=== PATIENT | female | born 1990 | race American Indian/Alaskan Native ===

== ENCOUNTER 2021-01-22 00:53 | Inpatient (IN) | payer OTHER ==
[2021-01-22 05:06] LABS: Hematocrit 40.1 % (30.3-42.9); Hemoglobin 13.9 gm/dl (10.1-14.3); Mean Corpuscular HGB Conc 35 % (30-34); Mean Corpuscular Volume 92 fl (79-97); Platelet Count 289 K/mm3 (140-440); Red Blood Count 4.36 M/mm3 (3.65-5.03); Red Cell Distribution Width 12.3 % (13.2-15.2)
[2021-01-22 06:25] LABS: Alanine Aminotransferase 8 units/L (7-56); Albumin 3.5 g/dL (3.9-5); Blood Urea Nitrogen 9 mg/dL (7-17); Calcium 9.6 mg/dL (8.4-10.2); Hemolysis Index 0
[2021-01-22 06:29] LABS: BUN/Creatinine Ratio 18
[2021-01-22 07:00] LABS: Total Cells Counted 100
[2021-01-22 07:01] LABS: Band Neutrophils # (Manual) 1.5 K/mm3; Platelet Estimate Consistent w Auto; RBC Morphology Normal
[2021-01-22 07:39] LABS: Bilirubin,Urine NEG (Negative); Blood,Urine NEG (Negative); Color,Urine Yellow (Yellow); Mucus,Urine FEW /HPF
[2021-01-22] MEDS ORDERED: VANCOMYCIN/NS 1 GM/250 ML 1 GM/250 ML BAG IV ONE (10:06)
[2021-01-22] MEDS ORDERED: SODIUM CHLORIDE 0.9% 1000 ML 1,000 ML IV ONE (10:08)
[2021-01-22] MEDS ORDERED: ONDANSETRON 4 MG/2 ML INJ IV ONE (10:08)
[2021-01-22] MEDS ORDERED: MORPHINE 4 MG/1 ML INJ IV ONE (10:08)
--- NOTE | 2021-01-22 10:12 | Emergency Department Report ---
ED General Adult HPI - General Chief complaint: Hyperglycemia Stated complaint: ABSCESS ON BUTTOCKS;HIGH BLOOD SUGAR Time Seen by Provider: 01/22/21 09:57 Source: patient Mode of arrival: Ambulatory Limitations: No Limitations - History of Present Illness Initial comments: Patient is 30 years old female with history of type 1 diabetes. Patient presented to the ER complaining of generalized weakness for the last few days. Patient stated that she noticed swelling and tenderness in her right buttock for the last 3 days. Patient also reported fever and chills. Patient denied any nausea or vomiting. No chest pain or shortness of breath or abdominal pain. Patient found to be in DKA with anion gap of 21. DKA protocol immediately initiated. Severity scale (0 -10): 6 - Related Data Allergies Allergy/AdvReac Type Severity Reaction Status Date / Time No Known Allergies Allergy Unverified 01/22/21 04:28 ED Review of Systems ROS: Stated complaint: ABSCESS ON BUTTOCKS;HIGH BLOOD SUGAR Other details as noted in HPI Comment: All other systems reviewed and negative Constitutional: chills, fever Respiratory: denies: cough, shortness of breath, SOB with exertion, SOB at rest Cardiovascular: palpitations. denies: chest pain Gastrointestinal: denies: abdominal pain, nausea, vomiting, diarrhea Musculoskeletal: denies: back pain Skin: lesions, change in color Neurological: weakness. denies: numbness, paresthesias, confusion ED Past Medical Hx - Past Medical History Previous Medical History?: Yes Hx Diabetes: Yes - Surgical History Past Surgical History?: Yes Additional Surgical History: - Social History Smoking Status: Never Smoker Substance Use Type: None ED Physical Exam - General Limitations: No Limitations General appearance: alert, in no apparent distress - Head Head exam: Present: atraumatic, normocephalic, normal inspection - ENT ENT exam: Present: mucous membranes dry - Neck Neck exam: Present: normal inspection, full ROM. Absent: tenderness, meningismus - Respiratory Respiratory exam: Present: normal lung sounds bilaterally - Cardiovascular Cardiovascular Exam: Present: tachycardia (Continue see the patient) - GI/Abdominal GI/Abdominal exam: Present: soft ( with a breathing), normal bowel sounds. Absent: distended, tenderness, guarding, rebound, rigid, mass, bruit, pulsatile mass (Patient), hernia - Extremities Exam Extremities exam: Present: normal inspection, full ROM, normal capillary refill. Absent: calf tenderness - Neurological Exam Neurological exam: Present: alert, oriented X3, CN II-XII intact - Psychiatric Psychiatric exam: Present: normal mood - Skin Skin exam: Present: warm, other (3 x 4 cm area of tenderness, swelling and warmth at the right buttock. Nonfluctuant.) ED Course Vital Signs 01/22/21 01/22/21 01/22/21 04:14 10:04 10:05 Temperature 99.2 F 98.5 F Pulse Rate 119 H 131 H 120 H Respiratory 18 18 20 Rate Blood Pressure 143/76 Blood Pressure 191/94 [Right] O2 Sat by Pulse 100 97 100 Oximetry 01/22/21 01/22/21 01/22/21 10:16 10:30 10:46 Temperature Pulse Rate 122 H 120 H 125 H Respiratory 19 20 20 Rate Blood Pressure 191/94 191/94 Blood Pressure [Right] O2 Sat by Pulse 100 100 100 Oximetry 01/22/21 01/22/21 01/22/21 11:00 11:16 11:46 Temperature Pulse Rate 123 H 125 H 120 H Respiratory 16 25 H 15 Rate Blood Pressure 191/94 141/89 146/91 Blood Pressure [Right] O2 Sat by Pulse 100 100 100 Oximetry 01/22/21 12:00 Temperature Pulse Rate 122 H Respiratory 25 H Rate Blood Pressure 150/95 Blood Pressure [Right] O2 Sat by Pulse 100 Oximetry ED Medical Decision Making - Lab Data Result diagrams: 01/22/21 04:39 01/22/21 10:19 - Radiology Data Radiology results: report reviewed - Medical Decision Making Patient is 30 years old female with history of type 1 diabetes. Patient presented to the ER complaining of generalized weakness for the last few days. Patient stated that she noticed swelling and tenderness in her right buttock for the last 3 days. Patient also reported fever and chills. Patient denied any nausea or vomiting. No chest pain or shortness of breath or abdominal pain. Patient found to be in DKA with anion gap of 21. DKA protocol immediately initiated. Patient started on normal saline and insulin drip. Right buttock area showed cellulitis no evidence of abscess at this moment. Patient started on vanc omycin. I discussed the patient with Dr. Garcia, he agreed to admit the patient to medical service for further management. Critical Care Time: Yes Critical care time in (mins) excluding proc time.: 30 Critical care attestation.: If time is entered above; I have spent that time in minutes in the direct care of this critically ill patient, excluding procedure time. ED Disposition Clinical Impression: DKA (diabetic ketoacidoses), Cellulitis of right buttock, Leukocytosis Disposition: OP ADMIT IP TO THIS HOSP Is pt being admited?: Yes Condition: Stable Instructions: Diabetic Ketoacidosis (ED) Referrals: PRIMARY CARE, [Primary Care Provider] - 3-5 Days
[2021-01-22 10:48] LABS: Blood Urea Nitrogen 9 mg/dL (7-17); Calcium 8.8 mg/dL (8.4-10.2); Hemolysis Index 4
[2021-01-22 10:51] LABS: BUN/Creatinine Ratio 18
--- NOTE | 2021-01-22 11:07 | XRay Report ---
CHEST 1 VIEW 01/22/2021 9:58 AM INDICATION / CLINICAL INFORMATION: fever. COMPARISON: None available. FINDINGS: SUPPORT DEVICES: None. HEART / MEDIASTINUM: No significant abnormality. LUNGS / PLEURA: No significant pulmonary or pleural abnormality. No pneumothorax. ADDITIONAL FINDINGS: No significant additional findings. IMPRESSION: 1. No acute findings. Signer Name: Bryan Dillon MD Signed: 01/22/2021 11:03 AM Workstation Name: [id number]
[2021-01-22] MEDS: INSULIN REGULAR, HUMAN 100 UNITS in SODIUM CHLORIDE 0.9% 99 ML IV SCH (12:28)
[2021-01-22] MEDS ORDERED: SODIUM CHLORIDE 0.9% 1000 ML 1,000 ML IV SCH (12:30)
--- NOTE | 2021-01-22 12:58 | History and Physical Report ---
History of Present Illness Chief complaint: My blood sugar is high and my butt is sore History of present illness: 30 YO Female with DM, Obesity presents to ED for evaluation. Pt reports " my blood sugar is high, and my butt is sore". Patient states that she has experienced redness, swelling, tenderness in her right buttock over the last 3 days with persistently worsening symptoms over the same timeframe. Patient also acknowledges high blood glucose levels. Patient transported to [facility] via private vehicle for further care and evaluation of the aforementioned symptoms. The patient was seen and evaluated in the emergency department. All lab and imaging studies reviewed. The patient was found to have diabetic ketoacidosis complicated by metabolic acidosis, right buttock cellulitis complicated by sepsis. Patient admitted to ICU and initiated on DKA as well as sepsis protocols respectively. Patient treated with IV fluid resuscitation therapy as well. Patient denies fever, chills, chest pain, palpitation, productive cough, recent ill contacts, or known exposure to COVID-19. No prior admission for rev iew. No medication listed at time of admission for reconciliation. Critical care consult placed in ED. Past History Past Medical History: diabetes, other (See HPI) Past Surgical History: Social history: single. denies: smoking, alcohol abuse, prescription drug abuse Family history: diabetes, hypertension Medications and Allergies Allergies Allergy/AdvReac Type Severity Reaction Status Date / Time No Known Allergies Allergy Unverified 01/22/21 04:28 Active Meds: Active Medications Insulin Human Regular 100 (units/ Sodium Chloride) 100 mls @ 1 mls/hr IV TITR LESTER; Protocol Last Admin: 01/22/21 12:28 Dose: 5 units/hr, 5 mls/hr Documented by: Sodium Chloride (Nacl 0.9% 1000 Ml) 1,000 mls @ 125 mls/hr IV DIRECT LESTER Review of Systems Constitutional: no weight loss, no weight gain, no fever, no chills Ears, nose, mouth and throat: no ear pain, no ear discharge, no decreased hearing, no nasal congestion, no nasal discharge, no sinus pain Breasts: no change in shape, no swelling, no mass Cardiovascular: no chest pain, no palpitations, no rapid/irregular heart beat, no edema, no lightheadedness Respiratory: no cough, no cough with sputum, no excessive sputum, no shortness of breath Gastrointestinal: no abdominal pain, no vomiting, no constipation, no change in bowel habits, no hematemesis Genitourinary Female: no pelvic pain, no flank pain, no dysuria, no urinary frequency, no urgency Rectal: no pain, no incontinence, no bleeding Musculoskeletal: no neck pain, no arm numbness/tingling, no shooting leg pain, no leg numbness/tingling, no redness of joints Integumentary: redness, boils, other (Right buttock) Neurological: no head injury, no weakness, no numbness, no tingling, no seizures, no syncope Psychiatric: no anxiety, no memory loss, no sleep disturbances, no insomnia, no change in appetite, no change in libido Endocrine: excessive thirst, polydipsia, polyuria, no cold intolerance, no polyphagia, no nocturia, no excessive sweating, no weight change Hematologic/Lymphatic: no easy bruising, no easy bleeding, no lymphedema Allergic/Immunologic: no urticaria, no allergic rhinitis, no wheezing, no persistent infections, no anaphylaxis Exam - Constitutional Vitals: Temp Pulse Resp BP Pulse Ox 98.5 F 122 H 25 H 150/95 100 01/22/21 10:05 01/22/21 12:00 01/22/21 12:00 01/22/21 12:00 01/22/21 12:00 General appearance: Present: mild distress, obese - EENT Eyes: Present: PERRL ENT: hearing intact, clear oral mucosa - Neck Neck: Present: supple, normal ROM - Respiratory Respiratory effort: normal Respiratory: bilateral: CTA - Cardiovascular Heart Sounds: Present: S1 & S2. Absent: rub, click - Extremities Extremities: pulses symmetrical, No edema Peripheral Pulses: abnormal (Capillary refill greater than 3.5 seconds) - Abdominal General gastrointestinal: Present: soft, non-tender, non-distended, normal bowel sounds Female genitourinary: Present: normal - Integumentary Integumentary: Present: erythema (Right buttock: No crepitus, no fluctuance, no purulent discharge.) - Musculoskeletal Musculoskeletal: gait normal, strength equal bilaterally - Psychiatric Psychiatric: appropriate mood/affect, intact judgment & insight - Neurologic Neurologic: CNII-XII intact, moves all extremities Results - Labs CBC & Chem 7: 01/22/21 04:39 01/22/21 14:17 Labs: Abnormal lab results 01/22/21 01/22/21 01/22/21 Range/Units 04:23 04:39 04:39 WBC 18.7 H (4.5-11.0) K/mm3 MCHC 35 H (30-34) % RDW 12.3 L (13.2-15.2) % Seg Neuts % (Manual) 89.0 H (40.0-70.0) % Lymphocytes % (Manual) 2.0 L (13.4-35.0) % Seg Neutrophils # Man 16.6 H (1.8-7.7) K/mm3 Lymphocytes # (Manual) 0.4 L (1.2-5.4) K/mm3 VBG pH (7.320-7.420) Sodium 129 L (137-145) mmol/L Potassium 3.4 L (3.6-5.0) mmol/L Chloride 94.0 L (98-107) mmol/L Carbon Dioxide 17 L (22-30) mmol/L Creatinine 0.5 L (0.6-1.2) mg/dL Glucose 328 H (65-100) mg/dL POC Glucose 324 H (70-105) mg/dL Alkaline Phosphatase 131 H (35-129) units/L Albumin 3.5 L (3.9-5) g/dL 01/22/21 01/22/21 01/22/21 Range/Units 04:39 10:19 11:57 WBC (4.5-11.0) K/mm3 MCHC (30-34) % RDW (13.2-15.2) % Seg Neuts % (Manual) (40.0-70.0) % Lymphocytes % (Manual) (13.4-35.0) % Seg Neutrophils # Man (1.8-7.7) K/mm3 Lymphocytes # (Manual) (1.2-5.4) K/mm3 VBG pH 7.303 L (7.320-7.420) Sodium 127 L (137-145) mmol/L Potassium 3.4 L (3.6-5.0) mmol/L Chloride 90.9 L (98-107) mmol/L Carbon Dioxide 13 L (22-30) mmol/L Creatinine 0.5 L (0.6-1.2) mg/dL Glucose 306 H (65-100) mg/dL POC Glucose 283 H (70-105) mg/dL Alkaline Phosphatase (35-129) units/L Albumin (3.9-5) g/dL Assessment and Plan - Patient Problems (1) Sepsis Current Visit: Yes Status: Acute Plan to address problem: Sepsis protocol: CBC, CMP, IV antibiotic therapy, IV fluid resuscitation therapy, serial lactic acid level, blood culture, maintain mean arterial pressure greater than or equal to 65. The high probability of a clinically significant, sudden or life threatening deterioration of the [endocrine, neuro, integument] system(s) required my full and direct attention, intervention and personal management. The aggregate critical care time was [65] minutes. This time is in addition to time spent performing reported procedures but includes the following: [x] Data Review and interpretation [x] Patient assessment and monitoring of vital signs [x] Documentation [x] Medication orders and management (2) DKA (diabetic ketoacidoses) Current Visit: Yes Status: Acute Qualifiers: Diabetes mellitus type: type 1 Plan to address problem: DKA protocol: Insulin drip, IV fluid resuscitation therapy, serial BMP, monitor potassium level, replete potassium levels in accordance with potassium protocol, monitor anion gap (3) Metabolic acidosis Current Visit: Yes Status: Acute Plan to address problem: IV fluid resuscitation therapy, BMP, serial lactic acid level, (4) Obesity (BMI 30.0-34.9) Current Visit: Yes Status: Acute Plan to address problem: Balanced diet, increase physical activity at discharge (5) Cellulitis of right buttock Current Visit: Yes Status: Acute Plan to address problem: CBC, BMP, IV antibiotic therapy, supportive care. CT scan pelvis to evaluate for necrotizing soft tissue infection (6) DVT prophylaxis Current Visit: Yes Status: Acute Plan to address problem: SCD to bilateral lower extremities while in bed
[2021-01-22] MEDS ORDERED: ALBUTEROL 2.5 MG/3 ML NEBU IH PRN (13:04)
[2021-01-22 14:57] LABS: Blood Urea Nitrogen 8 mg/dL (7-17); Calcium 8.6 mg/dL (8.4-10.2); Hemolysis Index 0
[2021-01-22 15:04] LABS: BUN/Creatinine Ratio 16
[2021-01-22] MEDS ORDERED: DEXTROSE 50% IN WATER (25GM) 50 ML SYRINGE IV PRN (16:13)
[2021-01-22] MEDS ORDERED: SODIUM CHLORIDE 0.9% 1000 ML IV SOLN IV ONE (16:45)
[2021-01-22] MEDS: D5W/0.45% NACL/KCL 20 MEQ 20 MEQ/1,000 ML BAG IV SCH ×2 (16:59→23:56)
[2021-01-22] MEDS ORDERED: SODIUM BICARB 8.4% 50 MEQ/50 ML SYRINGE IV ONE (17:00)
[2021-01-22] MEDS: CLINDAMYCIN 600 MG/50 mL 600 MG/50 ML BAG IV SCH (17:17)
[2021-01-22 19:03] LABS: Blood Urea Nitrogen 7 mg/dL (7-17); Calcium 8.3 mg/dL (8.4-10.2); Hemolysis Index 2
[2021-01-22 19:10] LABS: BUN/Creatinine Ratio 18
[2021-01-22] MEDS: ACETAMINOPHEN 325 MG TAB PO PRN (19:33)
[2021-01-22 23:01] LABS: Blood Urea Nitrogen 7 mg/dL (7-17); Calcium 8.1 mg/dL (8.4-10.2); Hemolysis Index 5
[2021-01-22 23:03] LABS: BUN/Creatinine Ratio 18
[2021-01-22] MEDS: POTASSIUM CHLORIDE 10 MEQ 10 MEQ/100 ML BAG IV SCH (23:17)
[2021-01-23] MEDS: POTASSIUM CHLORIDE 10 MEQ 10 MEQ/100 ML BAG IV SCH ×3 (00:22→02:27)
[2021-01-23] MEDS: CLINDAMYCIN 600 MG/50 mL 600 MG/50 ML BAG IV SCH ×3 (01:10→18:17)
[2021-01-23] MEDS: INSULIN REGULAR, HUMAN 100 UNITS in SODIUM CHLORIDE 0.9% 99 ML IV SCH (02:55)
[2021-01-23] MEDS: HYDROmorphone 1 MG/1 ML INJ IV PRN ×5 (04:16→22:35)
[2021-01-23 04:47] LABS: Hematocrit 35.3 % (30.3-42.9); Hemoglobin 12.4 gm/dl (10.1-14.3); Mean Corpuscular HGB Conc 35 % (30-34); Mean Corpuscular Volume 90 fl (79-97); Platelet Count 271 K/mm3 (140-440); Red Blood Count 3.92 M/mm3 (3.65-5.03); Red Cell Distribution Width 12.1 % (13.2-15.2)
[2021-01-23 05:08] LABS: Blood Urea Nitrogen 6 mg/dL (7-17); Calcium 8.4 mg/dL (8.4-10.2); Hemolysis Index 4
[2021-01-23 05:09] LABS: BUN/Creatinine Ratio 15
[2021-01-23 05:47] LABS: Anisocytosis 1+; Eosinophils % (Manual) 0.5 % (0.0-4.3); Platelet Estimate Consistent w Auto; Total Cells Counted 200
[2021-01-23] MEDS ORDERED: DEXTROSE 50% IN WATER (25GM) 50 ML SYRINGE IV PRN (08:27)
[2021-01-23] MEDS ORDERED: POTASSIUM PHOSPHATE 30 MMOL in SODIUM CHLORIDE 0.9% 500 ML 500 ML IV ONE (08:30)
[2021-01-23] MEDS ORDERED: INSULIN REGULAR, HUMAN 100 UNITS/1 ML SUB-Q ONE (09:00)
[2021-01-23] MEDS ORDERED: MAGNESIUM SULFATE 2 GM/50 ML BAG IV ONE (09:00)
[2021-01-23 09:23] LABS: Blood Urea Nitrogen 6 mg/dL (7-17); Calcium 7.9 mg/dL (8.4-10.2); Hemolysis Index 102
--- NOTE | 2021-01-23 09:23 | Progress Note ---
Assessment and Plan Assessment and plan: 30 YO Female with DM, Obesity presents to ED for evaluation. Pt reports " my blood sugar is high, and my butt is sore". Patient states that she has experienced redness, swelling, tenderness in her right buttock over the last 3 days with persistently worsening symptoms over the same timeframe. Patient also acknowledges high blood glucose levels. Patient transported to [facility] via private vehicle for further care and evaluation of the aforementioned symptoms. The patient was seen and evaluated in the emergency department. All lab and imaging studies reviewed. The patient was found to have diabetic ketoacidosis complicated by metabolic acidosis, right buttock cellulitis complicated by sepsis. Patient admitted to ICU and initiated on DKA as well as sepsis protocols respectively. Patient treated with IV fluid resuscitation therapy as well. Patient denies fever, chills, chest pain, palpitation, productive cough, recent ill contacts, or known exposure to COVID-19. No prior admission for review. No medication listed at time of admission for reconciliation. Critical care consult placed in ED. 01/23: Patient seen and examined, no fever, no new complaints, wound dressing in place,. Anion Gap closed. She states she uses 70 lantus at night along with sliding scale with meals, Will transition to sq insulin and start lantus at 50. Will re-evaluate wound, Awaiting CT pelvis ordered yesterday urgently- I Understand will be done today. this will help evaluate for abscess that may require I/D Wound care consult Continue abx. Hypokalemiareplace Anticipate discharge in a.m. if remains stable and does not require any debridement (1) Sepsis Current Visit: Yes Status: Acute Plan to address problem: Sepsis protocol: CBC, CMP, IV antibiotic therapy, IV fluid resuscitation therapy, serial lactic acid level, blood culture, maintain mean arterial pressure greater than or equal to 65. (2) DKA (diabetic ketoacidoses) Current Visit: Yes Status: Acute Qualifiers: Diabetes mellitus type: type 1 Plan to address problem: DKA protocol: Insulin drip, IV fluid resuscitation therapy, serial BMP, monitor potassium level, replete potassium levels in accordance with potassium protocol, monitor anion gap (3) Metabolic acidosis Current Visit: Yes Status: Acute Plan to address problem: IV fluid resuscitation therapy, BMP, serial lactic acid level, (4) Obesity (BMI 30.0-34.9) Current Visit: Yes Status: Acute Plan to address problem: Balanced diet, increase physical activity at discharge (5) Cellulitis of right buttock Current Visit: Yes Status: Acute Plan to address problem: CBC, BMP, IV antibiotic therapy, supportive care. CT scan pelvis to evaluate for necrotizing soft tissue infection (6) DVT prophylaxis Current Visit: Yes Status: Acute Plan to address problem: SCD to bilateral lower extremities while in bed History Interval history: Patient seen and examined, reports compliant with her insulin therapy, she thinks she sustained an insect bite. Hospitalist Physical - Physical exam Narrative exam: General appearance: Present: No distress, obese - EENT Eyes: Present: PERRL ENT: hearing intact, clear oral mucosa - Neck Neck: Present: supple, normal ROM - Respiratory Respiratory effort: normal Respiratory: bilateral: CTA - Cardiovascular Heart Sounds: Present: S1 & S2. Absent: rub, click - Extremities Extremities: pulses symmetrical, No edema Peripheral Pulses: abnormal (Capillary refill greater than 3.5 seconds) - Abdominal General gastrointestinal: Present: soft, non-tender, non-distended, normal bowel sounds Female genitourinary: Present: normal - Integumentary Integumentary: Present: erythema dressing (Right buttock: No crepitus, no fluctuance, no purulent discharge.) - Musculoskeletal Musculoskeletal: gait normal, strength equal bilaterally - Psychiatric Psychiatric: appropriate mood/affect, intact judgment & insight - Neurologic Neurologic: CNII-XII intact, moves all extremities - Constitutional Vitals: Temp Pulse Resp BP Pulse Ox 98.7 F 106 H 22 118/78 99 01/23/21 07:00 01/23/21 08:00 01/23/21 08:00 01/23/21 08:00 01/23/21 08:00 General appearance: Present: mild distress, obese Results - Labs CBC & Chem 7: 01/23/21 04:17 01/23/21 08:24 Labs: Laboratory Last Values WBC 20.7 K/mm3 (4.5-11.0) H 01/23/21 04:17 RBC 3.92 M/mm3 (3.65-5.03) 01/23/21 04:17 Hgb 12.4 gm/dl (10.1-14.3) 01/23/21 04:17 Hct 35.3 % (30.3-42.9) 01/23/21 04:17 MCV 90 fl (79-97) 01/23/21 04:17 MCH 32 pg (28-32) 01/23/21 04:17 MCHC 35 % (30-34) H 01/23/21 04:17 RDW 12.1 % (13.2-15.2) L 01/23/21 04:17 Plt Count 271 K/mm3 (140-440) 01/23/21 04:17 Add Manual Diff Complete 01/23/21 04:17 Total Counted 200 01/23/21 04:17 Seg Neuts % (Manual) 88.5 % (40.0-70.0) H 01/23/21 04:17 Band Neutrophils % 5.0 % 01/23/21 04:17 Lymphocytes % (Manual) 1.0 % (13.4-35.0) L 01/23/21 04:17 Monocytes % (Manual) 5.0 % (0.0-7.3) 01/23/21 04:17 Eosinophils % (Manual) 0.5 % (0.0-4.3) 01/23/21 04:17 Nucleated RBC % Not Reportable 01/23/21 04:17 Seg Neutrophils # Man 18.3 K/mm3 (1.8-7.7) H 01/23/21 04:17 Band Neutrophils # 1.0 K/mm3 01/23/21 04:17 Lymphocytes # (Manual) 0.2 K/mm3 (1.2-5.4) L 01/23/21 04:17 Abs React Lymphs (Man) 0.0 K/mm3 01/23/21 04:17 Monocytes # (Manual) 1.0 K/mm3 (0.0-0.8) H 01/23/21 04:17 Eosinophils # (Manual) 0.1 K/mm3 (0.0-0.4) 01/23/21 04:17 Basophils # (Manual) 0.0 K/mm3 (0.0-0.1) 01/23/21 04:17 Metamyelocytes # 0.0 K/mm3 01/23/21 04:17 Myelocytes # 0.0 K/mm3 01/23/21 04:17 Promyelocytes # 0.0 K/mm3 01/23/21 04:17 Blast Cells # 0.0 K/mm3 01/23/21 04:17 WBC Morphology Not Reportable 01/23/21 04:17 Hypersegmented Neuts Not Reportable 01/23/21 04:17 Hyposegmented Neuts Not Reportable 01/23/21 04:17 Hypogranular Neuts Not Reportable 01/23/21 04:17 Smudge Cells Not Reportable 01/23/21 04:17 Toxic Granulation Not Reportable 01/23/21 04:17 Toxic Vacuolation Not Reportable 01/23/21 04:17 Dohle Bodies Not Reportable 01/23/21 04:17 Pelger-Huet Anomaly Not Reportable 01/23/21 04:17 Ozzy Rods Not Reportable 01/23/21 04:17 Platelet Estimate Consistent w auto 01/23/21 04:17 Clumped Platelets Not Reportable 01/23/21 04:17 Plt Clumps, EDTA Not Reportable 01/23/21 04:17 Large Platelets Not Reportable 01/23/21 04:17 Giant Platelets Not Reportable 01/23/21 04:17 Platelet Satelliting Not Reportable 01/23/21 04:17 Plt Morphology Comment Not Reportable 01/23/21 04:17 RBC Morphology Not Reportable 01/23/21 04:17 Dimorphic RBCs Not Reportable 01/23/21 04:17 Polychromasia Not Reportable 01/23/21 04:17 Hypochromasia Not Reportable 01/23/21 04:17 Poikilocytosis Not Reportable 01/23/21 04:17 Anisocytosis 1+ 01/23/21 04:17 Microcytosis Not Reportable 01/23/21 04:17 Macrocytosis Not Reportable 01/23/21 04:17 Spherocytes Not Reportable 01/23/21 04:17 Pappenheimer Bodies Not Reportable 01/23/21 04:17 Sickle Cells Not Reportable 01/23/21 04:17 Target Cells Not Reportable 01/23/21 04:17 Tear Drop Cells Not Reportable 01/23/21 04:17 Ovalocytes Not Reportable 01/23/21 04:17 Helmet Cells Not Reportable 01/23/21 04:17 [place] Bodies Not Reportable 01/23/21 04:17 [place] Rings Not Reportable 01/23/21 04:17 Su Cells Not Reportable 01/23/21 04:17 Bite Cells Not Reportable 01/23/21 04:17 Crenated Cell Not Reportable 01/23/21 04:17 Elliptocytes Not Reportable 01/23/21 04:17 Acanthocytes (Spur) Not Reportable 01/23/21 04:17 Rouleaux Not Reportable 01/23/21 04:17 Hemoglobin C Crystals Not Reportable 01/23/21 04:17 Schistocytes Not Reportable 01/23/21 04:17 Malaria parasites Not Reportable 01/23/21 04:17 Kal Bodies Not Reportable 01/23/21 04:17 Hem Pathologist Commnt No 01/23/21 04:17 VBG pH 7.303 (7.320-7.420) L 01/22/21 04:39 Sodium 129 mmol/L (137-145) L 01/23/21 04:17 Potassium 3.3 mmol/L (3.6-5.0) L D 01/23/21 04:17 Chloride 98.7 mmol/L (98-107) 01/23/21 04:17 Carbon Dioxide 19 mmol/L (22-30) L 01/23/21 04:17 Anion Gap 15 mmol/L 01/23/21 04:17 BUN 6 mg/dL (7-17) L 01/23/21 04:17 Creatinine 0.4 mg/dL (0.6-1.2) L 01/23/21 04:17 Estimated GFR > 60 ml/min 01/23/21 04:17 BUN/Creatinine Ratio 15 % 01/23/21 04:17 Glucose 189 mg/dL (65-100) H 01/23/21 04:17 POC Glucose 133 mg/dL (70-105) H 01/23/21 09:18 Lactic Acid 1.10 mmol/L (0.7-2.0) 01/22/21 22:26 Calcium 8.4 mg/dL (8.4-10.2) 01/23/21 04:17 Phosphorus 1.30 mg/dL (2.5-4.5) L D 01/22/21 18:18 Magnesium 1.60 mg/dL (1.7-2.3) L 01/22/21 18:18 Total Bilirubin 0.50 mg/dL (0.1-1.2) 01/22/21 04:39 AST 9 units/L (5-40) 01/22/21 04:39 ALT 8 units/L (7-56) 01/22/21 04:39 Alkaline Phosphatase 131 units/L (35-129) H 01/22/21 04:39 Total Protein 7.3 g/dL (6.3-8.2) 01/22/21 04:39 Albumin 3.5 g/dL (3.9-5) L 01/22/21 04:39 Albumin/Globulin Ratio 0.9 % 01/22/21 04:39 HCG, Qual Negative (Negative) 01/22/21 04:39 Urine Color Yellow (Yellow) 01/22/21 06:08 Urine Turbidity Clear (Clear) 01/22/21 06:08 Urine pH 6.0 (5.0-7.0) 01/22/21 06:08 Ur Specific [place] 1.024 (1.003-1.030) 01/22/21 06:08 Urine Protein 30 mg/dl mg/dL (Negative) 01/22/21 06:08 Urine Glucose (UA) >=500 mg/dL (Negative) 01/22/21 06:08 Urine Ketones 80 mg/dL (Negative) 01/22/21 06:08 Urine Blood Neg (Negative) 01/22/21 06:08 Urine Nitrite Neg (Negative) 01/22/21 06:08 Urine Bilirubin Neg (Negative) 01/22/21 06:08 Urine Urobilinogen 2.0 mg/dL (<2.0) 01/22/21 06:08 Ur Leukocyte Esterase Neg (Negative) 01/22/21 06:08 Urine WBC (Auto) 3.0 /HPF (0.0-6.0) 01/22/21 06:08 Urine RBC (Auto) 2.0 /HPF (0.0-6.0) 01/22/21 06:08 U Epithel Cells (Auto) 2.0 /HPF (0-13.0) 01/22/21 06:08 Urine Mucus Few /HPF 01/22/21 06:08 Microbiology: Microbiology 01/22/21 10:25 Peripheral/Venous Blood Culture - Preliminary Culture in Progress 01/22/21 10:19 Peripheral/Venous Blood Culture - Preliminary Culture in Progress [place]ell/IV: Voiding Method Toilet Active Medications - Current Medications Current Medications: Generic Name Dose Route Start Last Admin Trade Name Freq PRN Reason Stop Dose Admin Acetaminophen 650 mg 01/22/21 16:28 01/22/21 19:33 Acetaminophen 325 Mg Tab PO 650 mg Q6H PRN Administration Pain, Mild (1-3) Albuterol 2.5 mg 01/22/21 13:04 Albuterol 2.5 Mg/3 Ml Nebu IH Q3HRT PRN Shortness Of Breath Dextrose 50 ml 01/23/21 08:27 Dextrose 50% In Water (25gm) 50 Ml Syringe IV Q30MIN PRN Hypoglycemia Protocol Hydromorphone HCl 0.25 mg 01/22/21 16:28 01/23/21 04:16 Hydromorphone 1 Mg/1 Ml Inj IV 0.25 mg Q4H PRN Administration Pain, Moderate (4-6) Sodium Chloride 1,000 mls @ 125 mls/hr 01/22/21 12:30 Nacl 0.9% 1000 Ml IV DIRECT LESTER Potassium Chloride/Dextrose/Sod Cl 20 meq in 1,000 mls @ 125 mls/hr 01/22/21 17:00 01/22/21 23:56 D5w/0.45% Nacl/Kcl 20 Meq IV 01/23/21 10:00 125 mls/hr DIRECT LESTER Administration Clindamycin HCl 600 mg in 50 mls @ 100 mls/hr 01/22/21 17:00 01/23/21 01:10 Cleocin 600 Mg/50 Ml IV 100 mls/hr Q8H LESTER Administration Protocol Magnesium Sulfate 2 gm in 50 mls @ 25 mls/hr 01/23/21 09:00 Magnesium Sulfate 2gm/50ml IV 01/23/21 10:59 ONCE ONE Potassium Phosphate 30 mmol/ 510 mls @ 85 mls/hr 01/23/21 08:30 Sodium Chloride IV 01/23/21 14:29 ONCE ONE Insulin Glargine 50 units 01/23/21 22:00 Insulin Glargine 100 Units/Ml SUB-Q QHS LESTER Insulin Human Lispro 0 unit 01/23/21 11:30 Insulin Lispro 100 Unit/Ml SUB-Q ACHS LESTER Protocol Sodium Chloride 10 ml 01/22/21 22:00 01/22/21 21:17 Sodium Chloride 0.9% 10 Ml Flush Syringe IV 10 ml BID LESTER Administration Sodium Chloride 10 ml 01/22/21 13:04 Sodium Chloride 0.9% 10 Ml Flush Syringe IV PRN PRN LINE FLUSH
[2021-01-23 09:26] LABS: BUN/Creatinine Ratio 15
[2021-01-23] MEDS: D5W/0.45% NACL/KCL 20 MEQ 20 MEQ/1,000 ML BAG IV SCH (09:44)
[2021-01-23] MEDS ORDERED: POTASSIUM CHLORIDE ER 20 MEQ TAB PO ONE (10:00)
--- NOTE | 2021-01-23 10:44 | Consultation ---
History of Present Illness - Reason for Consult Consult date: 01/23/21 sepsis Requesting physician: ADRIENNE SIEGEL - History of Present Illness The patient is a 30-year-old female with diabetes mellitus admitted to the hospital with pain in her right buttock going on since Sunday last week and also running high blood sugars at home. Upon evaluation in the ER, she was noted to be in diabetic ketoacidosis, sepsis. She was also noted to have right buttock cellulitis. Due to her sepsis, infectious diseases was consulted for additional evaluation. T-max was 102.6 F. Patient has no other complaints apart from pain in the buttock. Review of Systems: General: + fever HEENT: no new visual disturbance Respiratory: No cough, sputum, hemoptysis or shortness of breath Cardiovascular: No chest pain, syncope Gastrointestinal: No nausea, vomiting or diarrhea Genitourinary: No dysuria or hematuria Musculoskeletal: No new or worsening neck pain or back pain. R buttock pain Neurologic: No headaches, seizures Hematologic: No easy bruising or bleeding Endocrine: No night sweats or acute weight loss Skin: negative for rash, jaundice Psychiatric: No suicidal or homicidal ideation Past History Past Medical History: diabetes, other (See HPI) Past Surgical History: Social history: single. denies: smoking, alcohol abuse, prescription drug abuse Family history: diabetes, hypertension Medications and Allergies Allergies Allergy/AdvReac Type Severity Reaction Status Date / Time No Known Allergies Allergy Unverified 01/22/21 04:28 Home Medications Medication Instructions Recorded Confirmed Last Taken Type Lexapro 01/22/21 01/21/21 History 10 amLODIPine 01/22/21 01/21/21 History 10 Insulin Detemir [Levemir] 70 unit SQ HS 01/23/21 01/23/21 01/21/21 History Lisinopril 40 mg PO DAILY 01/23/21 01/23/21 01/23/21 10:37 History Active Meds: Active Medications Acetaminophen (Acetaminophen 325 Mg Tab) 650 mg PO Q6H PRN PRN Reason: Pain, Mild (1-3) Last Admin: 01/22/21 19:33 Dose: 650 mg Documented by: Albuterol (Albuterol 2.5 Mg/3 Ml Nebu) 2.5 mg IH Q3HRT PRN PRN Reason: Shortness Of Breath Dextrose (Dextrose 50% In Water (25gm) 50 Ml Syringe) 50 ml IV Q30MIN PRN; Protocol PRN Reason: Hypoglycemia Hydromorphone HCl (Hydromorphone 1 Mg/1 Ml Inj) 0.25 mg IV Q4H PRN PRN Reason: Pain, Moderate (4-6) Last Admin: 01/23/21 09:41 Dose: 0.25 mg Documented by: Sodium Chloride (Nacl 0.9% 1000 Ml) 1,000 mls @ 125 mls/hr IV DIRECT LESTER Clindamycin HCl (Cleocin 600 Mg/50 Ml) 600 mg in 50 mls @ 100 mls/hr IV Q8H LESTER; Protocol Last Admin: 01/23/21 09:42 Dose: 100 mls/hr Documented by: Magnesium Sulfate (Magnesium Sulfate 2gm/50ml) 2 gm in 50 mls @ 25 mls/hr IV ONCE ONE Stop: 01/23/21 10:59 Last Admin: 01/23/21 09:43 Dose: 25 mls/hr Documented by: Potassium Phosphate 30 mmol/ (Sodium Chloride) 510 mls @ 85 mls/hr IV ONCE ONE Stop: 01/23/21 14:29 Last Admin: 01/23/21 09:43 Dose: 85 mls/hr Documented by: Ceftriaxone Sodium (Rocephin/Ns 2 Gm/100 Ml) 2 gm in 100 mls @ 200 mls/hr IV Q24HR LESTER; Protocol Insulin Glargine (Insulin Glargine 100 Units/Ml) 50 units SUB-Q QHS LESTER Insulin Human Lispro (Insulin Lispro 100 Unit/Ml) 0 unit SUB-Q ACHS LESTER; Protocol Sodium Chloride (Sodium Chloride 0.9% 10 Ml Flush Syringe) 10 ml IV BID [facility] Last Admin: 01/23/21 09:42 Dose: 10 ml Documented by: Sodium Chloride (Sodium Chloride 0.9% 10 Ml Flush Syringe) 10 ml IV PRN PRN PRN Reason: LINE FLUSH Physical Examination - Physical Exam Narrative exam: Physical Exam: Constitutional: Alert, cooperative. No acute distress Head, Ears, Nose: Normocephalic, atraumatic. External ears, nose normal Eyes: Conjunctivae/corneas clear. No icterus. No ptosis. Neck: Supple, no meningeal signs Cardiovascular: S1, S2 normal. Respiratory: Good air entry, clear to auscultation bilaterally GI: Soft, non-tender; bowel sounds normal. No peritoneal signs Musculoskeletal: No pedal edema, no cyanosis. Skin: Right buttock with induration, swelling, tenderness, dressing present Hem/Lymphatic: No palpable cervical or supraclavicular nodes. No lymphangitis Psych: Mood ok. Affect normal Neurological: Awake, alert, oriented. No gross abnormality - Constitutional Vitals: Vital Signs Temp Pulse Resp BP Pulse Ox 98.7 F 108 H 21 121/69 99 01/23/21 07:00 01/23/21 09:01 01/23/21 09:01 01/23/21 09:01 01/23/21 09:01 Temperature -Last 24 Hours Temperature 98.7 F Temperature 100.4 F Temperature 99.3 F Temperature 102.6 F Temperature 99.6 F Results - Labs CBC & Chem 7: 01/23/21 04:17 01/23/21 08:24 Labs: Abnormal lab results 01/22/21 01/22/21 01/22/21 Range/Units 04:23 10:19 11:57 WBC (4.5-11.0) K/mm3 MCHC (30-34) % RDW (13.2-15.2) % Seg Neuts % (Manual) (40.0-70.0) % Lymphocytes % (Manual) (13.4-35.0) % Seg Neutrophils # Man (1.8-7.7) K/mm3 Lymphocytes # (Manual) (1.2-5.4) K/mm3 Monocytes # (Manual) (0.0-0.8) K/mm3 Sodium 127 L (137-145) mmol/L Potassium 3.4 L (3.6-5.0) mmol/L Chloride 90.9 L (98-107) mmol/L Carbon Dioxide 13 L (22-30) mmol/L BUN (7-17) mg/dL Creatinine 0.5 L (0.6-1.2) mg/dL Glucose 306 H (65-100) mg/dL POC Glucose 324 H 283 H (70-105) mg/dL Calcium (8.4-10.2) mg/dL Phosphorus (2.5-4.5) mg/dL Magnesium (1.7-2.3) mg/dL 01/22/21 01/22/21 01/22/21 Range/Units 14:17 15:56 16:56 WBC (4.5-11.0) K/mm3 MCHC (30-34) % RDW (13.2-15.2) % Seg Neuts % (Manual) (40.0-70.0) % Lymphocytes % (Manual) (13.4-35.0) % Seg Neutrophils # Man (1.8-7.7) K/mm3 Lymphocytes # (Manual) (1.2-5.4) K/mm3 Monocytes # (Manual) (0.0-0.8) K/mm3 Sodium 132 L (137-145) mmol/L Potassium 3.3 L (3.6-5.0) mmol/L Chloride (98-107) mmol/L Carbon Dioxide 14 L (22-30) mmol/L BUN (7-17) mg/dL Creatinine 0.5 L (0.6-1.2) mg/dL Glucose 267 H (65-100) mg/dL POC Glucose 198 H 197 H (70-105) mg/dL Calcium (8.4-10.2) mg/dL Phosphorus (2.5-4.5) mg/dL Magnesium (1.7-2.3) mg/dL 01/22/21 01/22/21 01/22/21 Range/Units 18:18 18:18 19:06 WBC (4.5-11.0) K/mm3 MCHC (30-34) % RDW (13.2-15.2) % Seg Neuts % (Manual) (40.0-70.0) % Lymphocytes % (Manual) (13.4-35.0) % Seg Neutrophils # Man (1.8-7.7) K/mm3 Lymphocytes # (Manual) (1.2-5.4) K/mm3 Monocytes # (Manual) (0.0-0.8) K/mm3 Sodium 130 L (137-145) mmol/L Potassium 3.1 L (3.6-5.0) mmol/L Chloride (98-107) mmol/L Carbon Dioxide 15 L (22-30) mmol/L BUN (7-17) mg/dL Creatinine 0.4 L (0.6-1.2) mg/dL Glucose 241 H (65-100) mg/dL POC Glucose 226 H 203 H (70-105) mg/dL Calcium 8.3 L (8.4-10.2) mg/dL Phosphorus 1.30 L D (2.5-4.5) mg/dL Magnesium 1.60 L (1.7-2.3) mg/dL 01/22/21 01/22/21 01/22/21 Range/Units 20:08 21:14 22:02 WBC (4.5-11.0) K/mm3 MCHC (30-34) % RDW (13.2-15.2) % Seg Neuts % (Manual) (40.0-70.0) % Lymphocytes % (Manual) (13.4-35.0) % Seg Neutrophils # Man (1.8-7.7) K/mm3 Lymphocytes # (Manual) (1.2-5.4) K/mm3 Monocytes # (Manual) (0.0-0.8) K/mm3 Sodium (137-145) mmol/L Potassium (3.6-5.0) mmol/L Chloride (98-107) mmol/L Carbon Dioxide (22-30) mmol/L BUN (7-17) mg/dL Creatinine (0.6-1.2) mg/dL Glucose (65-100) mg/dL POC Glucose 233 H 202 H 181 H (70-105) mg/dL Calcium (8.4-10.2) mg/dL Phosphorus (2.5-4.5) mg/dL Magnesium (1.7-2.3) mg/dL 01/22/21 01/22/21 01/22/21 Range/Units 22:26 23:07 23:56 WBC (4.5-11.0) K/mm3 MCHC (30-34) % RDW (13.2-15.2) % Seg Neuts % (Manual) (40.0-70.0) % Lymphocytes % (Manual) (13.4-35.0) % Seg Neutrophils # Man (1.8-7.7) K/mm3 Lymphocytes # (Manual) (1.2-5.4) K/mm3 Monocytes # (Manual) (0.0-0.8) K/mm3 Sodium 130 L (137-145) mmol/L Potassium 2.6 L* (3.6-5.0) mmol/L Chloride (98-107) mmol/L Carbon Dioxide 20 L (22-30) mmol/L BUN (7-17) mg/dL Creatinine 0.4 L (0.6-1.2) mg/dL Glucose 185 H (65-100) mg/dL POC Glucose 160 H 159 H (70-105) mg/dL Calcium 8.1 L (8.4-10.2) mg/dL Phosphorus (2.5-4.5) mg/dL Magnesium (1.7-2.3) mg/dL 01/23/21 01/23/21 01/23/21 Range/Units 01:06 02:11 02:52 WBC (4.5-11.0) K/mm3 MCHC (30-34) % RDW (13.2-15.2) % Seg Neuts % (Manual) (40.0-70.0) % Lymphocytes % (Manual) (13.4-35.0) % Seg Neutrophils # Man (1.8-7.7) K/mm3 Lymphocytes # (Manual) (1.2-5.4) K/mm3 Monocytes # (Manual) (0.0-0.8) K/mm3 Sodium (137-145) mmol/L Potassium (3.6-5.0) mmol/L Chloride (98-107) mmol/L Carbon Dioxide (22-30) mmol/L BUN (7-17) mg/dL Creatinine (0.6-1.2) mg/dL Glucose (65-100) mg/dL POC Glucose 162 H 182 H 167 H (70-105) mg/dL Calcium (8.4-10.2) mg/dL Phosphorus (2.5-4.5) mg/dL Magnesium (1.7-2.3) mg/dL 01/23/21 01/23/21 01/23/21 Range/Units 04:01 04:17 04:17 WBC 20.7 H (4.5-11.0) K/mm3 MCHC 35 H (30-34) % RDW 12.1 L (13.2-15.2) % Seg Neuts % (Manual) 88.5 H (40.0-70.0) % Lymphocytes % (Manual) 1.0 L (13.4-35.0) % Seg Neutrophils # Man 18.3 H (1.8-7.7) K/mm3 Lymphocytes # (Manual) 0.2 L (1.2-5.4) K/mm3 Monocytes # (Manual) 1.0 H (0.0-0.8) K/mm3 Sodium 129 L (137-145) mmol/L Potassium 3.3 L D (3.6-5.0) mmol/L Chloride (98-107) mmol/L Carbon Dioxide 19 L (22-30) mmol/L BUN 6 L (7-17) mg/dL Creatinine 0.4 L (0.6-1.2) mg/dL Glucose 189 H (65-100) mg/dL POC Glucose 195 H (70-105) mg/dL Calcium (8.4-10.2) mg/dL Phosphorus (2.5-4.5) mg/dL Magnesium (1.7-2.3) mg/dL 01/23/21 01/23/21 01/23/21 Range/Units 05:04 06:08 06:47 WBC (4.5-11.0) K/mm3 MCHC (30-34) % RDW (13.2-15.2) % Seg Neuts % (Manual) (40.0-70.0) % Lymphocytes % (Manual) (13.4-35.0) % Seg Neutrophils # Man (1.8-7.7) K/mm3 Lymphocytes # (Manual) (1.2-5.4) K/mm3 Monocytes # (Manual) (0.0-0.8) K/mm3 Sodium (137-145) mmol/L Potassium (3.6-5.0) mmol/L Chloride (98-107) mmol/L Carbon Dioxide (22-30) mmol/L BUN (7-17) mg/dL Creatinine (0.6-1.2) mg/dL Glucose (65-100) mg/dL POC Glucose 158 H 154 H 140 H (70-105) mg/dL Calcium (8.4-10.2) mg/dL Phosphorus (2.5-4.5) mg/dL Magnesium (1.7-2.3) mg/dL 01/23/21 01/23/21 01/23/21 Range/Units 08:09 08:24 09:18 WBC (4.5-11.0) K/mm3 MCHC (30-34) % RDW (13.2-15.2) % Seg Neuts % (Manual) (40.0-70.0) % Lymphocytes % (Manual) (13.4-35.0) % Seg Neutrophils # Man (1.8-7.7) K/mm3 Lymphocytes # (Manual) (1.2-5.4) K/mm3 Monocytes # (Manual) (0.0-0.8) K/mm3 Sodium 124 L (137-145) mmol/L Potassium (3.6-5.0) mmol/L Chloride 97.6 L (98-107) mmol/L Carbon Dioxide 17 L (22-30) mmol/L BUN 6 L (7-17) mg/dL Creatinine 0.4 L (0.6-1.2) mg/dL Glucose 122 H (65-100) mg/dL POC Glucose 124 H 133 H (70-105) mg/dL Calcium 7.9 L (8.4-10.2) mg/dL Phosphorus (2.5-4.5) mg/dL Magnesium (1.7-2.3) mg/dL - Imaging and Cardiology Chest x-ray: report reviewed, image reviewed (no pneumonia) Assessment and Plan Cultures: 01/22/2021 blood culture: In process A/P: 30-year-old female with diabetes mellitus admitted to the hospital with pain in her right buttock and DKA: #Sepsis, secondary to right buttock cellulitis and likely abscess: Follow-up CT scan, if abscess, will need drainage and General Surgery evaluation. #Pseudohyponatremia from hyperglycemia #Diabetes mellitus, uncontrolled with diabetic ketoacidosis Recs: -ordered Ceftriaxone, continue IV Vancomycin -Continue Clindamycin for now -F/U CT scan, if abscess, will need drainage and General Surgery evaluation Maverick Pierce MD, FACP [facility] ([facility] O: [phone] F: [phone]
[2021-01-23] MEDS: cefTRIAXone/NS 2 GM/100 ML 2 GM/100 ML BAG IV SCH (11:22)
[2021-01-23] MEDS: INSULIN LISPRO 100 UNIT/ML SUB-Q SCH ×3 (11:31→18:46)
--- NOTE | 2021-01-23 11:32 | Consultation ---
History of Present Illness Consult date: 01/23/21 Requesting physician: ADRIENNE SIEGEL Reason for consult: other (DKA) History of present illness: 30 YO Female with DM, Obesity presents to ED for evaluation. Pt reports " my blood sugar is high, and my butt is sore". Patient states that she has experienced redness, swelling, tenderness in her right buttock over the last 3 days with persistently worsening symptoms over the same timeframe. Patient also acknowledges high blood glucose levels. Patient transported to [facility] via private vehicle for further care and evaluation of the aforementioned symptoms. The patient was seen and evaluated in the emergency department. All lab and imaging studies reviewed. The patient was found to have diabetic ketoacidosis complic ated by metabolic acidosis, right buttock cellulitis complicated by sepsis. Patient admitted to ICU and initiated on DKA as well as sepsis protocols respectively. Patient treated with IV fluid resuscitation therapy as well. Patient denies fever, chills, chest pain, palpitation, productive cough, recent ill contacts, or known exposure to COVID-19. No prior admission for review. No medication listed at time of admission for reconciliation. Critical care consult placed in ED. Thank you Patient seen and examined. Vitals, labs, medications, chart reviewed. She has ongoing pain, but generally stats she is feeling better. She has been on insulin for 4 years Past History Past Medical History: diabetes, other (See HPI) Past Surgical History: Social history: single. denies: smoking, alcohol abuse, prescription drug abuse Family history: diabetes, hypertension Medications and Allergies Allergies Allergy/AdvReac Type Severity Reaction Status Date / Time No Known Allergies Allergy Unverified 01/22/21 04:28 Home Medications Medication Instructions Recorded Confirmed Last Taken Type amLODIPine 10 mg PO DAILY 01/22/21 01/23/21 01/21/21 History 10 Insulin Detemir [Levemir] 70 unit SQ HS 01/23/21 01/23/21 01/21/21 History Lisinopril 40 mg PO DAILY 01/23/21 01/23/21 01/23/21 10:37 History Active Meds: Active Medications Acetaminophen (Acetaminophen 325 Mg Tab) 650 mg PO Q6H PRN PRN Reason: Pain, Mild (1-3) Last Admin: 01/22/21 19:33 Dose: 650 mg Documented by: Albuterol (Albuterol 2.5 Mg/3 Ml Nebu) 2.5 mg IH Q3HRT PRN PRN Reason: Shortness Of Breath Dextrose (Dextrose 50% In Water (25gm) 50 Ml Syringe) 50 ml IV Q30MIN PRN; Protocol PRN Reason: Hypoglycemia Hydromorphone HCl (Hydromorphone 1 Mg/1 Ml Inj) 0.25 mg IV Q4H PRN PRN Reason: Pain, Moderate (4-6) Last Admin: 01/23/21 09:41 Dose: 0.25 mg Documented by: Sodium Chloride (Nacl 0.9% 1000 Ml) 1,000 mls @ 125 mls/hr IV DIRECT LESTER Clindamycin HCl (Cleocin 600 Mg/50 Ml) 600 mg in 50 mls @ 100 mls/hr IV Q8H LESTER; Protocol Last Admin: 01/23/21 09:42 Dose: 100 mls/hr Documented by: Potassium Phosphate 30 mmol/ (Sodium Chloride) 510 mls @ 85 mls/hr IV ONCE ONE Stop: 01/23/21 14:29 Last Admin: 01/23/21 09:43 Dose: 85 mls/hr Documented by: Ceftriaxone Sodium (Rocephin/Ns 2 Gm/100 Ml) 2 gm in 100 mls @ 200 mls/hr IV Q24HR LESTER; Protocol Last Admin: 01/23/21 11:22 Dose: 200 mls/hr Documented by: Insulin Glargine (Insulin Glargine 100 Units/Ml) 50 units SUB-Q QHS LESTER Insulin Human Lispro (Insulin Lispro 100 Unit/Ml) 0 unit SUB-Q ACHS LESTER; Protocol Sodium Chloride (Sodium Chloride 0.9% 10 Ml Flush Syringe) 10 ml IV BID LESTER Last Admin: 01/23/21 09:42 Dose: 10 ml Documented by: Sodium Chloride (Sodium Chloride 0.9% 10 Ml Flush Syringe) 10 ml IV PRN PRN PRN Reason: LINE FLUSH Physical Examination Vital signs: Vital Signs Temp Pulse Resp BP Pulse Ox 99.2 F 119 H 18 143/76 100 01/22/21 04:14 01/22/21 04:14 01/22/21 04:14 01/22/21 04:14 01/22/21 04:14 Vitals reviewed General appearance: Present: mild distress, obese - EENT Eyes: Present: PERRL ENT: hearing intact, clear oral mucosa - Neck Neck: Present: supple, normal ROM - Respiratory Respiratory effort: normal Respiratory: bilateral: CTA - Cardiovascular Heart Sounds: Present: S1 & S2. Absent: rub, click - Extremities Extremities: pulses symmetrical, No edema Peripheral Pulses: abnormal (Capillary refill greater than 3.5 seconds) - Abdominal General gastrointestinal: Present: soft, non-tender, non-distended, normal bowel sounds Female genitourinary: Present: normal - Integumentary Integumentary: Present: erythema (Right buttock: No crepitus, no fluctuance, no purulent discharge.) - Musculoskeletal Musculoskeletal: gait normal, strength equal bilaterally - Psychiatric Psychiatric: appropriate mood/affect, intact judgment & insight - Neurologic Neurologic: CNII-XII intact, moves all extremities Results - Laboratory Findings CBC and BMP: 01/23/21 04:17 01/23/21 17:08 Abnormal lab findings: Abnormal Labs 01/22/21 01/22/21 01/22/21 04:23 04:39 04:39 WBC 18.7 H MCHC 35 H RDW 12.3 L Seg Neuts % (Manual) 89.0 H Lymphocytes % (Manual) 2.0 L Seg Neutrophils # Man 16.6 H Lymphocytes # (Manual) 0.4 L Monocytes # (Manual) VBG pH Sodium 129 L Potassium 3.4 L Chloride 94.0 L Carbon Dioxide 17 L BUN Creatinine 0.5 L Glucose 328 H POC Glucose 324 H Calcium Phosphorus Magnesium Alkaline Phosphatase 131 H Albumin 3.5 L 01/22/21 01/22/21 01/22/21 04:39 10:19 11:57 WBC MCHC RDW Seg Neuts % (Manual) Lymphocytes % (Manual) Seg Neutrophils # Man Lymphocytes # (Manual) Monocytes # (Manual) VBG pH 7.303 L Sodium 127 L Potassium 3.4 L Chloride 90.9 L Carbon Dioxide 13 L BUN Creatinine 0.5 L Glucose 306 H POC Glucose 283 H Calcium Phosphorus Magnesium Alkaline Phosphatase Albumin 01/22/21 01/22/21 01/22/21 14:17 15:56 16:56 WBC MCHC RDW Seg Neuts % (Manual) Lymphocytes % (Manual) Seg Neutrophils # Man Lymphocytes # (Manual) Monocytes # (Manual) VBG pH Sodium 132 L Potassium 3.3 L Chloride Carbon Dioxide 14 L BUN Creatinine 0.5 L Glucose 267 H POC Glucose 198 H 197 H Calcium Phosphorus Magnesium Alkaline Phosphatase Albumin 01/22/21 01/22/21 01/22/21 18:18 18:18 19:06 WBC MCHC RDW Seg Neuts % (Manual) Lymphocytes % (Manual) Seg Neutrophils # Man Lymphocytes # (Manual) Monocytes # (Manual) VBG pH Sodium 130 L Potassium 3.1 L Chloride Carbon Dioxide 15 L BUN Creatinine 0.4 L Glucose 241 H POC Glucose 226 H 203 H Calcium 8.3 L Phosphorus 1.30 L D Magnesium 1.60 L Alkaline Phosphatase Albumin 01/22/21 01/22/21 01/22/21 20:08 21:14 22:02 WBC MCHC RDW Seg Neuts % (Manual) Lymphocytes % (Manual) Seg Neutrophils # Man Lymphocytes # (Manual) Monocytes # (Manual) VBG pH Sodium Potassium Chloride Carbon Dioxide BUN Creatinine Glucose POC Glucose 233 H 202 H 181 H Calcium Phosphorus Magnesium Alkaline Phosphatase Albumin 01/22/21 01/22/21 01/22/21 22:26 23:07 23:56 WBC MCHC RDW Seg Neuts % (Manual) Lymphocytes % (Manual) Seg Neutrophils # Man Lymphocytes # (Manual) Monocytes # (Manual) VBG pH Sodium 130 L Potassium 2.6 L* Chloride Carbon Dioxide 20 L BUN Creatinine 0.4 L Glucose 185 H POC Glucose 160 H 159 H Calcium 8.1 L Phosphorus Magnesium Alkaline Phosphatase Albumin 01/23/21 01/23/21 01/23/21 01:06 02:11 02:52 WBC MCHC RDW Seg Neuts % (Manual) Lymphocytes % (Manual) Seg Neutrophils # Man Lymphocytes # (Manual) Monocytes # (Manual) VBG pH Sodium Potassium Chloride Carbon Dioxide BUN Creatinine Glucose POC Glucose 162 H 182 H 167 H Calcium Phosphorus Magnesium Alkaline Phosphatase Albumin 01/23/21 01/23/21 01/23/21 04:01 04:17 04:17 WBC 20.7 H MCHC 35 H RDW 12.1 L Seg Neuts % (Manual) 88.5 H Lymphocytes % (Manual) 1.0 L Seg Neutrophils # Man 18.3 H Lymphocytes # (Manual) 0.2 L Monocytes # (Manual) 1.0 H VBG pH Sodium 129 L Potassium 3.3 L D Chloride Carbon Dioxide 19 L BUN 6 L Creatinine 0.4 L Glucose 189 H POC Glucose 195 H Calcium Phosphorus Magnesium Alkaline Phosphatase Albumin 01/23/21 01/23/21 01/23/21 05:04 06:08 06:47 WBC MCHC RDW Seg Neuts % (Manual) Lymphocytes % (Manual) Seg Neutrophils # Man Lymphocytes # (Manual) Monocytes # (Manual) VBG pH Sodium Potassium Chloride Carbon Dioxide BUN Creatinine Glucose POC Glucose 158 H 154 H 140 H Calcium Phosphorus Magnesium Alkaline Phosphatase Albumin 01/23/21 01/23/21 01/23/21 08:09 08:24 09:18 WBC MCHC RDW Seg Neuts % (Manual) Lymphocytes % (Manual) Seg Neutrophils # Man Lymphocytes # (Manual) Monocytes # (Manual) VBG pH Sodium 124 L Potassium Chloride 97.6 L Carbon Dioxide 17 L BUN 6 L Creatinine 0.4 L Glucose 122 H POC Glucose 124 H 133 H Calcium 7.9 L Phosphorus Magnesium Alkaline Phosphatase Albumin 01/23/21 11:24 WBC MCHC RDW Seg Neuts % (Manual) Lymphocytes % (Manual) Seg Neutrophils # Man Lymphocytes # (Manual) Monocytes # (Manual) VBG pH Sodium Potassium Chloride Carbon Dioxide BUN Creatinine Glucose POC Glucose 240 H Calcium Phosphorus Magnesium Alkaline Phosphatase Albumin Assessment and Plan (1) Sepsis Current Visit: Yes Status: Acute Plan to address problem: Sepsis protocol: CBC, CMP, IV antibiotic therapy, IV fluid resuscitation therapy, serial lactic acid level, blood cultures, maintain mean arterial pressure greater than or equal to 65. Follow up cultures, de-escalate antibiotics based on cultures On Clindamycin and Ceftriaxone The high probability of a clinically significant, sudden or life threatening deterioration of the endocrine, neuro, integument system(s) required my full and direct attention, intervention and personal management. The aggregate critical care time was [35] minutes. This time is in addition to time spent performing reported procedures but includes the following: [x] Data Review and interpretation [x] Patient assessment and monitoring of vital signs [x] Documentation [x] Medication orders and management (2) DKA (diabetic ketoacidoses) Current Visit: Yes Status: Acute Qualifiers: Diabetes mellitus type: type 1 Plan to address problem: DKA protocol: Insulin drip, IV fluid resuscitation therapy, serial BMP, monitor potassium level, replete potassium levels in accordance with potassium protocol, monitor anion gap Once anion gap closes, switch to basal bolus insulin Diabetic education Weight loss and life style modification (3) Hyponatremia Current Visit: Yes Status: Acute Plan to address problem: Probably secondary to hyperglycemia. Monitor levels while treating for DKA (4) Obesity (BMI 30.0-34.9) Current Visit: Yes Status: Acute Plan to address problem: Weight loss and lifestyle modification (5) Cellulitis of right buttock Current Visit: Yes Status: Acute Plan to address problem: CBC, BMP, IV antibiotic therapy, supportive care. CT scan pelvis to evaluate for necrotizing soft tissue infection (6) DVT prophylaxis Current Visit: Yes Status: Acute Plan to address problem: Start Enoxaprin, moderate risk patient
--- NOTE | 2021-01-23 12:21 | Cat Scan Report ---
CT OF THE PELVIS WITH INTRAVENOUS CONTRAST INDICATION / CLINICAL INFORMATION: Right buttock cellulitis. TECHNIQUE: The patient received 100 cc Omnipaque [address] scans at this location are performed using CT dose reduction for ALARA by means of automated exposure control. COMPARISON: None available. FINDINGS: There is moderate soft tissue stranding involving the subcutaneous fat of the right buttocks inferome dially. There is associated skin thickening. No focal mass, fluid collection or soft tissue gas are i dentified. The urinary bladder is distended extending to the iliac crest. The distal ureters are normal. There i s an IUD well situated within the central uterus. I see no evidence of adnexal mass or free fluid. Th e appendix is not seen and there is no evidence of diverticulitis. I do not identify a hernia. No acu te osseous abnormality is present. IMPRESSION: Moderate subcutaneous inflammation/edema involving the right buttocks inferomedially. No drainable fluid collection is seen. Signer Name: Stevie Dubois MD Signed: 01/23/2021 12:16 PM Workstation Name: [id number]
[2021-01-23 17:59] LABS: Blood Urea Nitrogen 5 mg/dL (7-17); Calcium 8.4 mg/dL (8.4-10.2); Hemolysis Index 14
[2021-01-23 18:12] LABS: BUN/Creatinine Ratio 13
[2021-01-23] MEDS ORDERED: INSULIN GLARGINE 100 UNITS/ML SUB-Q SCH (22:00)
[2021-01-24] MEDS: CLINDAMYCIN 600 MG/50 mL 600 MG/50 ML BAG IV SCH ×3 (00:51→16:06)
[2021-01-24] MEDS: INSULIN LISPRO 100 UNIT/ML SUB-Q SCH ×5 (00:52→21:26)
[2021-01-24] MEDS: ACETAMINOPHEN 325 MG TAB PO PRN (01:30)
--- NOTE | 2021-01-24 09:17 | Progress Note ---
Assessment and Plan (1) Sepsis Current Visit: Yes Status: Acute Plan to address problem: Sepsis protocol: CBC, CMP, IV antibiotic therapy, IV fluid resuscitation the rapy, serial lactic acid level, blood cultures, maintain mean arterial pressure greater than or equal to 65. Follow up cultures, de-escalate antibiotics based on cultures On Clindamycin and Ceftriaxone (2) DKA (diabetic ketoacidoses) Current Visit: Yes Status: Acute Qualifiers: Diabetes mellitus type: type 1 Plan to address problem: Glycemic control, target blood glucose of <180mg/dL to optimize chances of wound healing On basal bolus insulin, Diabetic education Weight loss and life style modification (3) Hyponatremia Current Visit: Yes Status: Acute Plan to address problem: Probably secondary to hyperglycemia. Monitor levels while treating for DKA (4) Obesity (BMI 30.0-34.9) Current Visit: Yes Status: Acute Plan to address problem: Weight loss and lifestyle modification (5) Cellulitis of right buttock Current Visit: Yes Status: Acute Plan to address problem: CBC, BMP, IV antibiotic therapy, supportive care. CT scan pelvis to evaluate for necrotizing soft tissue infection- negative. (6) DVT prophylaxis Current Visit: Yes Status: Acute Plan to address problem: Continue Enoxaprin Subjective Date of service: 01/24/21 Interval history: Patient is seen today for: Sepsis; DKA; Hyponatremia; Obesity; Cellulitis of right buttock Seen and examined at bedside; 24hour events reviewed; nursing and respiratory care staff consulted; no adverse overnight events reported to me; resting peacefully in bed; drainage from the buttock site; feels better overall; remains on broad spectrum antibiotics, off insulin infusion. States her pain is well controlled Objective - Exam Narrative Exam: - Physical exam Narrative exam: General appearance: Present: No distress, obese - EENT Eyes: Present: PERRL ENT: hearing intact, clear oral mucosa - Neck Neck: Present: supple, normal ROM - Respiratory Respiratory effort: normal Respiratory: bilateral: CTA - Cardiovascular Heart Sounds: Present: S1 & S2.tachycardia Absent: rub, click - Extremities Extremities: pulses symmetrical, No edema - Abdominal General gastrointestinal: Present: soft, non-tender, non-distended, normal bowel sounds Female genitourinary: Present: normal - Integumentary Integumentary: Present: Dressing over right buttock - Musculoskeletal Musculoskeletal: gait normal, strength equal bilaterally - Psychiatric Psychiatric: appropriate mood/affect, intact judgment & insight - Neurologic Neurologic: CNII-XII intact, moves all extremities Vital Signs - 12hr 01/23/21 01/23/21 01/23/21 22:00 22:35 23:05 Temperature Pulse Rate Respiratory 17 17 Rate Respiratory 17 Rate [Right Soft Tissue] Blood Pressure Blood Pressure [Right] O2 Sat by Pulse Oximetry 01/23/21 01/24/21 01/24/21 23:18 00:00 02:30 Temperature 100.4 F H Pulse Rate 113 H Respiratory 16 17 17 Rate Respiratory Rate [Right Soft Tissue] Blood Pressure 144/75 Blood Pressure [Right] O2 Sat by Pulse 97 Oximetry 01/24/21 01/24/21 01/24/21 03:19 04:00 07:42 Temperature 98.7 F 99.0 F Pulse Rate 105 H 96 H 108 H Respiratory 16 17 Rate Respiratory Rate [Right Soft Tissue] Blood Pressure 134/84 Blood Pressure 158/78 [Right] O2 Sat by Pulse 97 100 Oximetry CBC and BMP: 01/28/21 05:07 01/28/21 05:07 Abnormal lab findings: Abnormal Labs 01/22/21 01/22/21 01/22/21 04:23 04:39 04:39 WBC 18.7 H MCHC 35 H RDW 12.3 L Seg Neuts % (Manual) 89.0 H Lymphocytes % (Manual) 2.0 L Seg Neutrophils # Man 16.6 H Lymphocytes # (Manual) 0.4 L Monocytes # (Manual) VBG pH Sodium 129 L Potassium 3.4 L Chloride 94.0 L Carbon Dioxide 17 L BUN Creatinine 0.5 L Glucose 328 H POC Glucose 324 H Calcium Phosphorus Magnesium Alkaline Phosphatase 131 H Albumin 3.5 L 01/22/21 01/22/21 01/22/21 04:39 10:19 11:57 WBC MCHC RDW Seg Neuts % (Manual) Lymphocytes % (Manual) Seg Neutrophils # Man Lymphocytes # (Manual) Monocytes # (Manual) VBG pH 7.303 L Sodium 127 L Potassium 3.4 L Chloride 90.9 L Carbon Dioxide 13 L BUN Creatinine 0.5 L Glucose 306 H POC Glucose 283 H Calcium Phosphorus Magnesium Alkaline Phosphatase Albumin 01/22/21 01/22/21 01/22/21 14:17 15:56 16:56 WBC MCHC RDW Seg Neuts % (Manual) Lymphocytes % (Manual) Seg Neutrophils # Man Lymphocytes # (Manual) Monocytes # (Manual) VBG pH Sodium 132 L Potassium 3.3 L Chloride Carbon Dioxide 14 L BUN Creatinine 0.5 L Glucose 267 H POC Glucose 198 H 197 H Calcium Phosphorus Magnesium Alkaline Phosphatase Albumin 01/22/21 01/22/21 01/22/21 18:18 18:18 19:06 WBC MCHC RDW Seg Neuts % (Manual) Lymphocytes % (Manual) Seg Neutrophils # Man Lymphocytes # (Manual) Monocytes # (Manual) VBG pH Sodium 130 L Potassium 3.1 L Chloride Carbon Dioxide 15 L BUN Creatinine 0.4 L Glucose 241 H POC Glucose 226 H 203 H Calcium 8.3 L Phosphorus 1.30 L D Magnesium 1.60 L Alkaline Phosphatase Albumin 01/22/21 01/22/21 01/22/21 20:08 21:14 22:02 WBC MCHC RDW Seg Neuts % (Manual) Lymphocytes % (Manual) Seg Neutrophils # Man Lymphocytes # (Manual) Monocytes # (Manual) VBG pH Sodium Potassium Chloride Carbon Dioxide BUN Creatinine Glucose POC Glucose 233 H 202 H 181 H Calcium Phosphorus Magnesium Alkaline Phosphatase Albumin 01/22/21 01/22/21 01/22/21 22:26 23:07 23:56 WBC MCHC RDW Seg Neuts % (Manual) Lymphocytes % (Manual) Seg Neutrophils # Man Lymphocytes # (Manual) Monocytes # (Manual) VBG pH Sodium 130 L Potassium 2.6 L* Chloride Carbon Dioxide 20 L BUN Creatinine 0.4 L Glucose 185 H POC Glucose 160 H 159 H Calcium 8.1 L Phosphorus Magnesium Alkaline Phosphatase Albumin 01/23/21 01/23/21 01/23/21 01:06 02:11 02:52 WBC MCHC RDW Seg Neuts % (Manual) Lymphocytes % (Manual) Seg Neutrophils # Man Lymphocytes # (Manual) Monocytes # (Manual) VBG pH Sodium Potassium Chloride Carbon Dioxide BUN Creatinine Glucose POC Glucose 162 H 182 H 167 H Calcium Phosphorus Magnesium Alkaline Phosphatase Albumin 01/23/21 01/23/21 01/23/21 04:01 04:17 04:17 WBC 20.7 H MCHC 35 H RDW 12.1 L Seg Neuts % (Manual) 88.5 H Lymphocytes % (Manual) 1.0 L Seg Neutrophils # Man 18.3 H Lymphocytes # (Manual) 0.2 L Monocytes # (Manual) 1.0 H VBG pH Sodium 129 L Potassium 3.3 L D Chloride Carbon Dioxide 19 L BUN 6 L Creatinine 0.4 L Glucose 189 H POC Glucose 195 H Calcium Phosphorus Magnesium Alkaline Phosphatase Albumin 01/23/21 01/23/21 01/23/21 05:04 06:08 06:47 WBC MCHC RDW Seg Neuts % (Manual) Lymphocytes % (Manual) Seg Neutrophils # Man Lymphocytes # (Manual) Monocytes # (Manual) VBG pH Sodium Potassium Chloride Carbon Dioxide BUN Creatinine Glucose POC Glucose 158 H 154 H 140 H Calcium Phosphorus Magnesium Alkaline Phosphatase Albumin 01/23/21 01/23/21 01/23/21 08:09 08:24 09:18 WBC MCHC RDW Seg Neuts % (Manual) Lymphocytes % (Manual) Seg Neutrophils # Man Lymphocytes # (Manual) Monocytes # (Manual) VBG pH Sodium 124 L Potassium Chloride 97.6 L Carbon Dioxide 17 L BUN 6 L Creatinine 0.4 L Glucose 122 H POC Glucose 124 H 133 H Calcium 7.9 L Phosphorus Magnesium Alkaline Phosphatase Albumin 01/23/21 01/23/21 01/23/21 11:24 17:08 18:43 WBC MCHC RDW Seg Neuts % (Manual) Lymphocytes % (Manual) Seg Neutrophils # Man Lymphocytes # (Manual) Monocytes # (Manual) VBG pH Sodium 126 L Potassium Chloride 95.4 L Carbon Dioxide 18 L BUN 5 L Creatinine 0.4 L Glucose 212 H POC Glucose 240 H 220 H Calcium Phosphorus Magnesium Alkaline Phosphatase Albumin 01/23/21 01/24/21 21:32 04:50 WBC MCHC RDW Seg Neuts % (Manual) Lymphocytes % (Manual) Seg Neutrophils # Man Lymphocytes # (Manual) Monocytes # (Manual) VBG pH Sodium Potassium Chloride Carbon Dioxide BUN Creatinine Glucose POC Glucose 198 H 262 H Calcium Phosphorus Magnesium Alkaline Phosphatase Albumin
[2021-01-24] MEDS: HYDROmorphone 1 MG/1 ML INJ IV PRN ×3 (09:49→20:08)
--- NOTE | 2021-01-24 10:11 | Progress Note ---
Assessment and Plan Assessment and plan: 30 YO Female with DM, Obesity presents to ED for evaluation. Pt reports " my blood sugar is high, and my butt is sore". Patient states that she has experienced redness, swelling, tenderness in her right buttock over the last 3 days with persistently worsening symptoms over the same timeframe. Patient also acknowledges high blood glucose levels. Patient transported to [facility] via private vehicle for further care and evaluation of the aforementioned symptoms. The patient was seen and evaluated in the emergency department. All lab and imaging studies reviewed. The patient was found to have diabetic ketoacidosis complicated by metabolic acidosis, right buttock cellulitis complicated by sepsis. Patient admitted to ICU and initiated on DKA as well as sepsis protocols respectively. Patient treated with IV fluid resuscitation therapy as well. Patient denies fever, chills, chest pain, palpitation, productive cough, recent ill contacts, or known exposure to COVID-19. No prior admission for review. No medication listed at time of admission for reconciliation. Critical care consult placed in ED. 01/23: Patient seen and examined, no fever, no new complaints, wound dressing in place,. Anion Gap closed. She states she uses 70 lantus at night along with sliding scale with meals, Will transition to sq insulin and start lantus at 50. Will re-evaluate wound, Awaiting CT pelvis ordered yesterday urgently- I Understand will be done today. this will help evaluate for abscess that may require I/D Wound care consult Continue abx. Hypokalemiareplace Anticipate discharge in a.m. if remains stable and does not require any debridement 01/24: We will continue to monitor ID input noted. Continue antibiotics CT scan reviewed no drainable fluid noted but inflammation noted. Patient reported that the site bled through the night. Dressing being done at this time. Mild pseudohyponatremia noted will monitor closely while addressing blood sugar is still elevated. Anticipate discharge in next 24 hours this has been discussed with the patient and she verbalized understanding. We will discontinue IV fluid as patient is tolerating food. She also has some pain will adjust her pain medication for better control (1) Sepsis Current Visit: Yes Status: Acute Plan to address problem: Sepsis protocol: CBC, CMP, IV antibiotic therapy, IV fluid resuscitation therapy, serial lactic acid level, blood culture, maintain mean arterial pressure greater than or equal to 65. (2) DKA (diabetic ketoacidoses) Current Visit: Yes Status: Acute Qualifiers: Diabetes mellitus type: type 1 Plan to address problem: DKA protocol: Insulin drip, IV fluid resuscitation therapy, serial BMP, monitor potassium level, replete potassium levels in accordance with potassium protocol, monitor anion gap (3) Metabolic acidosis Current Visit: Yes Status: Acute Plan to address problem: IV fluid resuscitation therapy, BMP, serial lactic acid level, (4) Obesity (BMI 30.0-34.9) Current Visit: Yes Status: Acute Plan to address problem: Balanced diet, increase physical activity at discharge (5) Cellulitis of right buttock Current Visit: Yes Status: Acute Plan to address problem: CBC, BMP, IV antibiotic therapy, supportive care. CT scan pelvis to evaluate for necrotizing soft tissue infection (6) pseudohyponatremia DVT prophylaxis Current Visit: Yes Status: Acute Plan to address problem: SCD to bilateral lower extremities while in bed History Interval history: Patient seen and examined, still with pain, CT result reviewed with the patient also lab results reviewed. Hospitalist Physical - Physical exam Narrative exam: General appearance: Present: No distress, obese - EENT Eyes: Present: PERRL ENT: hearing intact, clear oral mucosa - Neck Neck: Present: supple, normal ROM - Respiratory Respiratory effort: normal Respiratory: bilateral: CTA - Cardiovascular Heart Sounds: Present: S1 & S2. Absent: rub, click - Extremities Extremities: pulses symmetrical, No edema Peripheral Pulses: abnormal (Capillary refill greater than 3.5 seconds) - Abdominal General gastrointestinal: Present: soft, non-tender, non-distended, normal bowel sounds Female genitourinary: Present: normal - Integumentary Integumentary: Present: erythema dressing (Right buttock: No crepitus, no fluctuance, no purulent discharge.) - Musculoskeletal Musculoskeletal: gait normal, strength equal bilaterally - Psychiatric Psychiatric: appropriate mood/affect, intact judgment & insight - Neurologic Neurologic: CNII-XII intact, moves all extremities - Constitutional Vitals: Temp Pulse Resp BP Pulse Ox 99.0 F 108 H 17 158/78 100 01/24/21 07:42 01/24/21 07:42 01/24/21 09:49 01/24/21 07:42 01/24/21 07:42 General appearance: Present: mild distress, obese Results - Labs CBC & Chem 7: 01/23/21 04:17 01/23/21 17:08 Labs: Laboratory Last Values WBC 20.7 K/mm3 (4.5-11.0) H 01/23/21 04:17 RBC 3.92 M/mm3 (3.65-5.03) 01/23/21 04:17 Hgb 12.4 gm/dl (10.1-14.3) 01/23/21 04:17 Hct 35.3 % (30.3-42.9) 01/23/21 04:17 MCV 90 fl (79-97) 01/23/21 04:17 MCH 32 pg (28-32) 01/23/21 04:17 MCHC 35 % (30-34) H 01/23/21 04:17 RDW 12.1 % (13.2-15.2) L 01/23/21 04:17 Plt Count 271 K/mm3 (140-440) 01/23/21 04:17 Add Manual Diff Complete 01/23/21 04:17 Total Counted 200 01/23/21 04:17 Seg Neuts % (Manual) 88.5 % (40.0-70.0) H 01/23/21 04:17 Band Neutrophils % 5.0 % 01/23/21 04:17 Lymphocytes % (Manual) 1.0 % (13.4-35.0) L 01/23/21 04:17 Monocytes % (Manual) 5.0 % (0.0-7.3) 01/23/21 04:17 Eosinophils % (Manual) 0.5 % (0.0-4.3) 01/23/21 04:17 Nucleated RBC % Not Reportable 01/23/21 04:17 Seg Neutrophils # Man 18.3 K/mm3 (1.8-7.7) H 01/23/21 04:17 Band Neutrophils # 1.0 K/mm3 01/23/21 04:17 Lymphocytes # (Manual) 0.2 K/mm3 (1.2-5.4) L 01/23/21 04:17 Abs React Lymphs (Man) 0.0 K/mm3 01/23/21 04:17 Monocytes # (Manual) 1.0 K/mm3 (0.0-0.8) H 01/23/21 04:17 Eosinophils # (Manual) 0.1 K/mm3 (0.0-0.4) 01/23/21 04:17 Basophils # (Manual) 0.0 K/mm3 (0.0-0.1) 01/23/21 04:17 Metamyelocytes # 0.0 K/mm3 01/23/21 04:17 Myelocytes # 0.0 K/mm3 01/23/21 04:17 Promyelocytes # 0.0 K/mm3 01/23/21 04:17 Blast Cells # 0.0 K/mm3 01/23/21 04:17 WBC Morphology Not Reportable 01/23/21 04:17 Hypersegmented Neuts Not Reportable 01/23/21 04:17 Hyposegmented Neuts Not Reportable 01/23/21 04:17 Hypogranular Neuts Not Reportable 01/23/21 04:17 Smudge Cells Not Reportable 01/23/21 04:17 Toxic Granulation Not Reportable 01/23/21 04:17 Toxic Vacuolation Not Reportable 01/23/21 04:17 Dohle Bodies Not Reportable 01/23/21 04:17 Pelger-Huet Anomaly Not Reportable 01/23/21 04:17 Ozzy Rods Not Reportable 01/23/21 04:17 Platelet Estimate Consistent w auto 01/23/21 04:17 Clumped Platelets Not Reportable 01/23/21 04:17 Plt Clumps, EDTA Not Reportable 01/23/21 04:17 Large Platelets Not Reportable 01/23/21 04:17 Giant Platelets Not Reportable 01/23/21 04:17 Platelet Satelliting Not Reportable 01/23/21 04:17 Plt Morphology Comment Not Reportable 01/23/21 04:17 RBC Morphology Not Reportable 01/23/21 04:17 Dimorphic RBCs Not Reportable 01/23/21 04:17 Polychromasia Not Reportable 01/23/21 04:17 Hypochromasia Not Reportable 01/23/21 04:17 Poikilocytosis Not Reportable 01/23/21 04:17 Anisocytosis 1+ 01/23/21 04:17 Microcytosis Not Reportable 01/23/21 04:17 Macrocytosis Not Reportable 01/23/21 04:17 Spherocytes Not Reportable 01/23/21 04:17 Pappenheimer Bodies Not Reportable 01/23/21 04:17 Sickle Cells Not Reportable 01/23/21 04:17 Target Cells Not Reportable 01/23/21 04:17 Tear Drop Cells Not Reportable 01/23/21 04:17 Ovalocytes Not Reportable 01/23/21 04:17 Helmet Cells Not Reportable 01/23/21 04:17 Santacruz-Yolo Bodies Not Reportable 01/23/21 04:17 Adrian Rings Not Reportable 01/23/21 04:17 [place] Cells Not Reportable 01/23/21 04:17 Bite Cells Not Reportable 01/23/21 04:17 Crenated Cell Not Reportable 01/23/21 04:17 Elliptocytes Not Reportable 01/23/21 04:17 Acanthocytes (Spur) Not Reportable 01/23/21 04:17 Rouleaux Not Reportable 01/23/21 04:17 Hemoglobin C Crystals Not Reportable 01/23/21 04:17 Schistocytes Not Reportable 01/23/21 04:17 Malaria parasites Not Reportable 01/23/21 04:17 Kal Bodies Not Reportable 01/23/21 04:17 Hem Pathologist Commnt No 01/23/21 04:17 VBG pH 7.303 (7.320-7.420) L 01/22/21 04:39 Sodium 126 mmol/L (137-145) L 01/23/21 17:08 Potassium 3.8 mmol/L (3.6-5.0) 01/23/21 17:08 Chloride 95.4 mmol/L (98-107) L 01/23/21 17:08 Carbon Dioxide 18 mmol/L (22-30) L 01/23/21 17:08 Anion Gap 16 mmol/L 01/23/21 17:08 BUN 5 mg/dL (7-17) L 01/23/21 17:08 Creatinine 0.4 mg/dL (0.6-1.2) L 01/23/21 17:08 Estimated GFR > 60 ml/min 01/23/21 17:08 BUN/Creatinine Ratio 13 % 01/23/21 17:08 Glucose 212 mg/dL (65-100) H 01/23/21 17:08 POC Glucose 262 mg/dL (70-105) H 01/24/21 04:50 Lactic Acid 1.10 mmol/L (0.7-2.0) 01/22/21 22:26 Calcium 8.4 mg/dL (8.4-10.2) 01/23/21 17:08 Phosphorus 1.30 mg/dL (2.5-4.5) L D 01/22/21 18:18 Magnesium 1.60 mg/dL (1.7-2.3) L 01/22/21 18:18 Total Bilirubin 0.50 mg/dL (0.1-1.2) 01/22/21 04:39 AST 9 units/L (5-40) 01/22/21 04:39 ALT 8 units/L (7-56) 01/22/21 04:39 Alkaline Phosphatase 131 units/L (35-129) H 01/22/21 04:39 Total Protein 7.3 g/dL (6.3-8.2) 01/22/21 04:39 Albumin 3.5 g/dL (3.9-5) L 01/22/21 04:39 Albumin/Globulin Ratio 0.9 % 01/22/21 04:39 HCG, Qual Negative (Negative) 01/22/21 04:39 Urine Color Yellow (Yellow) 01/22/21 06:08 Urine Turbidity Clear (Clear) 01/22/21 06:08 Urine pH 6.0 (5.0-7.0) 01/22/21 06:08 Ur Specific Plato 1.024 (1.003-1.030) 01/22/21 06:08 Urine Protein 30 mg/dl mg/dL (Negative) 01/22/21 06:08 Urine Glucose (UA) >=500 mg/dL (Negative) 01/22/21 06:08 Urine Ketones 80 mg/dL (Negative) 01/22/21 06:08 Urine Blood Neg (Negative) 01/22/21 06:08 Urine Nitrite Neg (Negative) 01/22/21 06:08 Urine Bilirubin Neg (Negative) 01/22/21 06:08 Urine Urobilinogen 2.0 mg/dL (<2.0) 01/22/21 06:08 Ur Leukocyte Esterase Neg (Negative) 01/22/21 06:08 Urine WBC (Auto) 3.0 /HPF (0.0-6.0) 01/22/21 06:08 Urine RBC (Auto) 2.0 /HPF (0.0-6.0) 01/22/21 06:08 U Epithel Cells (Auto) 2.0 /HPF (0-13.0) 01/22/21 06:08 Urine Mucus Few /HPF 01/22/21 06:08 Microbiology: Microbiology 01/22/21 10:25 Peripheral/Venous Blood Culture - Preliminary NO GROWTH AFTER 24 HOURS 01/22/21 10:19 Peripheral/Venous Blood Culture - Preliminary NO GROWTH AFTER 24 HOURS Trammell/IV: Voiding Method Toilet Active Medications - Current Medications Current Medications: Generic Name Dose Route Start Last Admin Trade Name Freq PRN Reason Stop Dose Admin Acetaminophen 650 mg 01/22/21 16:28 01/24/21 01:30 Acetaminophen 325 Mg Tab PO 650 mg Q6H PRN Administration Pain, Mild (1-3) Albuterol 2.5 mg 01/22/21 13:04 Albuterol 2.5 Mg/3 Ml Nebu IH Q3HRT PRN Shortness Of Breath Dextrose 50 ml 01/23/21 08:27 Dextrose 50% In Water (25gm) 50 Ml Syringe IV Q30MIN PRN Hypoglycemia Protocol Hydromorphone HCl 0.25 mg 01/22/21 16:28 01/24/21 09:49 Hydromorphone 1 Mg/1 Ml Inj IV 0.25 mg Q4H PRN Administration Pain, Moderate (4-6) Clindamycin HCl 600 mg in 50 mls @ 100 mls/hr 01/22/21 17:00 01/24/21 09:47 Cleocin 600 Mg/50 Ml IV 100 mls/hr Q8H LESTER Administration Protocol Ceftriaxone Sodium 2 gm in 100 mls @ 200 mls/hr 01/23/21 11:00 01/23/21 11:22 Rocephin/Ns 2 Gm/100 Ml IV 200 mls/hr Q24HR LESTER Administration Protocol Insulin Glargine 60 units 01/24/21 22:00 Insulin Glargine 100 Units/Ml SUB-Q QHS LESTER Insulin Human Lispro 0 unit 01/23/21 11:30 01/24/21 07:37 Insulin Lispro 100 Unit/Ml SUB-Q 6 unit ACHS LESTER Administration Protocol Sodium Chloride 10 ml 01/22/21 22:00 01/24/21 09:47 Sodium Chloride 0.9% 10 Ml Flush Syringe IV 10 ml BID LESTER Administration Sodium Chloride 10 ml 01/22/21 13:04 Sodium Chloride 0.9% 10 Ml Flush Syringe IV PRN PRN LINE FLUSH
[2021-01-24] MEDS: cefTRIAXone/NS 2 GM/100 ML 2 GM/100 ML BAG IV SCH (10:53)
[2021-01-24] MEDS ORDERED: VANCOMYCIN PHARMACY TO DOSE IV SCH (11:00)
--- NOTE | 2021-01-24 11:43 | Progress Note ---
Assessment and Plan Cultures: 01/22/2021 blood culture: In process A/P: 30-year-old female with diabetes mellitus admitted to the hospital with pain in her right buttock and DKA: #Sepsis, secondary to right buttock cellulitis: CT scan negative for abscess, but expect it may evolve into one and then may need drainage and General Surgery evaluation. #Pseudohyponatremia from hyperglycemia #Diabetes mellitus, uncontrolled with diabetic ketoacidosis Recs: -continue Ceftriaxone, continue IV Vancomycin -Continue Clindamycin for total 3 days -monitor wound for drainage, likely to evolve into an abscess and may need surgical treatment -maintain glycemic control Maverick Pierce MD, FACP [facility] ([facility] O: [phone] F: [phone] Subjective Date of service: 01/24/21 Interval history: Pain in buttock +, fever +. No drainage as such yet. D/w RN. Moved out of ICU. Objective - Exam Narrative Exam: Physical Exam: Constitutional: Alert, cooperative. No acute distress Head, Ears, Nose: Normocephalic, atraumatic. External ears, nose normal Eyes: Conjunctivae/corneas clear. No icterus. No ptosis. Neck: Supple, no meningeal signs Cardiovascular: S1, S2 normal. Respiratory: Good air entry, clear to auscultation bilaterally GI: Soft, non-tender; bowel sounds normal. No peritoneal signs Musculoskeletal: No pedal edema, no cyanosis. Skin: Right buttock with induration, swelling, tenderness, dressing present Hem/Lymphatic: No palpable cervical or supraclavicular nodes. No lymphangitis Psych: Mood ok. Affect normal Neurological: Awake, alert, oriented. No gross abnormality - Constitutional Vitals: Vital Signs Temp Pulse Resp BP Pulse Ox 99.0 F 104 H 17 158/78 97 01/24/21 07:42 01/24/21 08:00 01/24/21 11:00 01/24/21 07:42 01/24/21 08:00 Temperature -Last 24 Hours Temperature 99.0 F Temperature 98.7 F Temperature 100.4 F Temperature 100.9 F Temperature 99.8 F Temperature 98.7 F Temperature 99.8 F - Labs CBC & Chem 7: 01/23/21 04:17 01/23/21 17:08 Labs: Abnormal lab results 01/23/21 01/23/21 01/23/21 Range/Units 17:08 18:43 21:32 Sodium 126 L (137-145) mmol/L Chloride 95.4 L (98-107) mmol/L Carbon Dioxide 18 L (22-30) mmol/L BUN 5 L (7-17) mg/dL Creatinine 0.4 L (0.6-1.2) mg/dL Glucose 212 H (65-100) mg/dL POC Glucose 220 H 198 H (70-105) mg/dL 01/24/21 Range/Units 04:50 Sodium (137-145) mmol/L Chloride (98-107) mmol/L Carbon Dioxide (22-30) mmol/L BUN (7-17) mg/dL Creatinine (0.6-1.2) mg/dL Glucose (65-100) mg/dL POC Glucose 262 H (70-105) mg/dL
[2021-01-24 11:44] LABS: Hematocrit 36.3 % (30.3-42.9); Hemoglobin 12.7 gm/dl (10.1-14.3); Mean Corpuscular HGB Conc 35 % (30-34); Mean Corpuscular Volume 90 fl (79-97); Platelet Count 282 K/mm3 (140-440); Red Blood Count 4.03 M/mm3 (3.65-5.03); Red Cell Distribution Width 12.6 % (13.2-15.2)
[2021-01-24 12:19] LABS: Total Cells Counted 100
[2021-01-24 12:20] LABS: Platelet Estimate Consistent w Auto; RBC Morphology Normal
[2021-01-24] MEDS: VANCOMYCIN 1,250 MG in SODIUM CHLORIDE 0.9% 250ML 250 ML IV SCH ×2 (12:44→23:10)
[2021-01-24] MEDS ORDERED: INSULIN GLARGINE 100 UNITS/ML SUB-Q SCH (22:00)
[2021-01-25] MEDS: CLINDAMYCIN 600 MG/50 mL 600 MG/50 ML BAG IV SCH ×2 (00:19→09:03)
[2021-01-25] MEDS: HYDROmorphone 1 MG/1 ML INJ IV PRN ×5 (00:54→19:52)
[2021-01-25] MEDS: ACETAMINOPHEN 325 MG TAB PO PRN (04:16)
[2021-01-25 05:47] LABS: Hematocrit 32.7 % (30.3-42.9); Hemoglobin 11.7 gm/dl (10.1-14.3); Mean Corpuscular HGB Conc 36 % (30-34); Mean Corpuscular Volume 89 fl (79-97); Platelet Count 291 K/mm3 (140-440); Red Blood Count 3.67 M/mm3 (3.65-5.03); Red Cell Distribution Width 12.4 % (13.2-15.2)
[2021-01-25 06:10] LABS: BUN/Creatinine Ratio 10; Blood Urea Nitrogen 4 mg/dL (7-17); Calcium 7.9 mg/dL (8.4-10.2); Hemolysis Index 0
[2021-01-25] MEDS: INSULIN LISPRO 100 UNIT/ML SUB-Q SCH ×4 (07:30→21:26)
[2021-01-25] MEDS: cefTRIAXone/NS 2 GM/100 ML 2 GM/100 ML BAG IV SCH (09:02)
[2021-01-25] MEDS ORDERED: POTASSIUM CHLORIDE ER 20 MEQ TAB PO NR (09:03)
[2021-01-25] MEDS ORDERED: INSULIN REGULAR, HUMAN 100 UNITS/1 ML SUB-Q ONE (10:00)
--- NOTE | 2021-01-25 10:18 | Progress Note ---
Assessment and Plan Patient alert, awake. Patient is on room air.O2 saturation 96%. No complaint of chest pain, shortness of breath or cough. Patient afebrile. Has leukocytosis. Blood pressure 155/73. Patient has abscess and cellulitis of right buttock. patient has history of diabetes and hypertension. No history of smoking, alcohol or drug abuse. and has two children. No known drug allergies. Chest xray done 01/22/21 reported no acute findings. Patient presently on antibiotics Vancomycin and ceftriaxone. - Patient Problems (1) Obesity (BMI 30.0-34.9) Current Visit: Yes Status: Acute Plan to address problem: Recommend to loose weight. Diet and exercise. (2) Sepsis Current Visit: Yes Status: Acute Plan to address problem: Patient is on vancomycin and ceftrioxone. (3) Cellulitis of right buttock Current Visit: Yes Status: Acute Plan to address problem: Patient is on vancomycin and vancomycin. (4) DKA (diabetic ketoacidoses) Current Visit: Yes Status: Acute Qualifiers: Diabetes mellitus type: type 1 Plan to address problem: Management as per primary care. (5) Hypertension Current Visit: Yes Status: Acute Plan to address problem: Management as per primary care. Subjective Date of service: 01/25/21 Interval history: Patient alert, awake. Patient is on room air.O2 saturation 96%. No complaint of chest pain, shortness of breath or cough. Patient afebrile. Has leukocytosis. Blood pressure 155/73. Patient has abscess and cellulitis of right buttock. patient has history of diabetes and hypertension. No history of smoking, alcohol or drug abuse. and has two children. No known drug allergies. Chest xray done 01/22/21 reported no acute findings. Patient presently on antibiotics Vancomycin and ceftriaxone. Objective Vital Signs - 12hr 01/24/21 01/25/21 01/25/21 23:54 00:00 04:13 Temperature 100.2 F H 100.9 F H Pulse Rate 111 H 110 H 103 H Respiratory 18 18 Rate Respiratory Rate [Right Soft Tissue] Blood Pressure 153/82 162/98 O2 Sat by Pulse 95 99 Oximetry 01/25/21 01/25/21 07:34 10:00 Temperature 98.1 F Pulse Rate 93 H Respiratory 18 Rate Respiratory 18 Rate [Right Soft Tissue] Blood Pressure 159/81 O2 Sat by Pulse 98 Oximetry Constitutional: no acute distress, alert Eyes: non-icteric ENT: oropharynx moist Neck: supple, no lymphadenopathy Ascultation: Bilateral: diminished breath sounds (Diminished breath sounds at the bases.) Cardiovascular: regular rate and rhythm Gastrointestinal: normoactive bowel sounds, soft, non-tender Integumentary: cellulitis, other (Abscess on right buttock.) Extremities: no cyanosis, no edema Neurologic: normal mental status, non-focal exam, pupils equal and round, CN II- XII normal Psychiatric: mood appropriate CBC and BMP: 01/25/21 05:11 01/25/21 05:11 Abnormal lab findings: Abnormal Labs 01/22/21 01/22/21 01/22/21 04:23 04:39 04:39 WBC 18.7 H MCHC 35 H RDW 12.3 L Seg Neuts % (Manual) 89.0 H Lymphocytes % (Manual) 2.0 L Seg Neutrophils # Man 16.6 H Lymphocytes # (Manual) 0.4 L Monocytes # (Manual) VBG pH Sodium 129 L Potassium 3.4 L Chloride 94.0 L Carbon Dioxide 17 L BUN Creatinine 0.5 L Glucose 328 H POC Glucose 324 H Calcium Phosphorus Magnesium Alkaline Phosphatase 131 H Albumin 3.5 L 01/22/21 01/22/21 01/22/21 04:39 10:19 11:57 WBC MCHC RDW Seg Neuts % (Manual) Lymphocytes % (Manual) Seg Neutrophils # Man Lymphocytes # (Manual) Monocytes # (Manual) VBG pH 7.303 L Sodium 127 L Potassium 3.4 L Chloride 90.9 L Carbon Dioxide 13 L BUN Creatinine 0.5 L Glucose 306 H POC Glucose 283 H Calcium Phosphorus Magnesium Alkaline Phosphatase Albumin 01/22/21 01/22/21 01/22/21 14:17 15:56 16:56 WBC MCHC RDW Seg Neuts % (Manual) Lymphocytes % (Manual) Seg Neutrophils # Man Lymphocytes # (Manual) Monocytes # (Manual) VBG pH Sodium 132 L Potassium 3.3 L Chloride Carbon Dioxide 14 L BUN Creatinine 0.5 L Glucose 267 H POC Glucose 198 H 197 H Calcium Phosphorus Magnesium Alkaline Phosphatase Albumin 01/22/21 01/22/21 01/22/21 18:18 18:18 19:06 WBC MCHC RDW Seg Neuts % (Manual) Lymphocytes % (Manual) Seg Neutrophils # Man Lymphocytes # (Manual) Monocytes # (Manual) VBG pH Sodium 130 L Potassium 3.1 L Chloride Carbon Dioxide 15 L BUN Creatinine 0.4 L Glucose 241 H POC Glucose 226 H 203 H Calcium 8.3 L Phosphorus 1.30 L D Magnesium 1.60 L Alkaline Phosphatase Albumin 01/22/21 01/22/21 01/22/21 20:08 21:14 22:02 WBC MCHC RDW Seg Neuts % (Manual) Lymphocytes % (Manual) Seg Neutrophils # Man Lymphocytes # (Manual) Monocytes # (Manual) VBG pH Sodium Potassium Chloride Carbon Dioxide BUN Creatinine Glucose POC Glucose 233 H 202 H 181 H Calcium Phosphorus Magnesium Alkaline Phosphatase Albumin 01/22/21 01/22/21 01/22/21 22:26 23:07 23:56 WBC MCHC RDW Seg Neuts % (Manual) Lymphocytes % (Manual) Seg Neutrophils # Man Lymphocytes # (Manual) Monocytes # (Manual) VBG pH Sodium 130 L Potassium 2.6 L* Chloride Carbon Dioxide 20 L BUN Creatinine 0.4 L Glucose 185 H POC Glucose 160 H 159 H Calcium 8.1 L Phosphorus Magnesium Alkaline Phosphatase Albumin 01/23/21 01/23/21 01/23/21 01:06 02:11 02:52 WBC MCHC RDW Seg Neuts % (Manual) Lymphocytes % (Manual) Seg Neutrophils # Man Lymphocytes # (Manual) Monocytes # (Manual) VBG pH Sodium Potassium Chloride Carbon Dioxide BUN Creatinine Glucose POC Glucose 162 H 182 H 167 H Calcium Phosphorus Magnesium Alkaline Phosphatase Albumin 01/23/21 01/23/21 01/23/21 04:01 04:17 04:17 WBC 20.7 H MCHC 35 H RDW 12.1 L Seg Neuts % (Manual) 88.5 H Lymphocytes % (Manual) 1.0 L Seg Neutrophils # Man 18.3 H Lymphocytes # (Manual) 0.2 L Monocytes # (Manual) 1.0 H VBG pH Sodium 129 L Potassium 3.3 L D Chloride Carbon Dioxide 19 L BUN 6 L Creatinine 0.4 L Glucose 189 H POC Glucose 195 H Calcium Phosphorus Magnesium Alkaline Phosphatase Albumin 01/23/21 01/23/21 01/23/21 05:04 06:08 06:47 WBC MCHC RDW Seg Neuts % (Manual) Lymphocytes % (Manual) Seg Neutrophils # Man Lymphocytes # (Manual) Monocytes # (Manual) VBG pH Sodium Potassium Chloride Carbon Dioxide BUN Creatinine Glucose POC Glucose 158 H 154 H 140 H Calcium Phosphorus Magnesium Alkaline Phosphatase Albumin 01/23/21 01/23/21 01/23/21 08:09 08:24 09:18 WBC MCHC RDW Seg Neuts % (Manual) Lymphocytes % (Manual) Seg Neutrophils # Man Lymphocytes # (Manual) Monocytes # (Manual) VBG pH Sodium 124 L Potassium Chloride 97.6 L Carbon Dioxide 17 L BUN 6 L Creatinine 0.4 L Glucose 122 H POC Glucose 124 H 133 H Calcium 7.9 L Phosphorus Magnesium Alkaline Phosphatase Albumin 01/23/21 01/23/21 01/23/21 11:24 17:08 18:43 WBC MCHC RDW Seg Neuts % (Manual) Lymphocytes % (Manual) Seg Neutrophils # Man Lymphocytes # (Manual) Monocytes # (Manual) VBG pH Sodium 126 L Potassium Chloride 95.4 L Carbon Dioxide 18 L BUN 5 L Creatinine 0.4 L Glucose 212 H POC Glucose 240 H 220 H Calcium Phosphorus Magnesium Alkaline Phosphatase Albumin 01/23/21 01/24/21 01/24/21 21:32 04:50 07:30 WBC MCHC RDW Seg Neuts % (Manual) Lymphocytes % (Manual) Seg Neutrophils # Man Lymphocytes # (Manual) Monocytes # (Manual) VBG pH Sodium Potassium Chloride Carbon Dioxide BUN Creatinine Glucose POC Glucose 198 H 262 H 255 H Calcium Phosphorus Magnesium Alkaline Phosphatase Albumin 01/24/21 01/24/21 01/24/21 11:30 11:33 16:06 WBC 20.1 H MCHC 35 H RDW 12.6 L Seg Neuts % (Manual) Lymphocytes % (Manual) 6.0 L Seg Neutrophils # Man 18.5 H Lymphocytes # (Manual) Monocytes # (Manual) VBG pH Sodium Potassium Chloride Carbon Dioxide BUN Creatinine Glucose POC Glucose 293 H 230 H Calcium Phosphorus Magnesium Alkaline Phosphatase Albumin 01/24/21 01/25/21 01/25/21 20:47 05:11 05:11 WBC 17.3 H MCHC 36 H RDW 12.4 L Seg Neuts % (Manual) Lymphocytes % (Manual) Seg Neutrophils # Man Lymphocytes # (Manual) Monocytes # (Manual) VBG pH Sodium 130 L Potassium 3.2 L Chloride 93.7 L Carbon Dioxide BUN 4 L Creatinine 0.4 L Glucose 257 H POC Glucose 333 H Calcium 7.9 L Phosphorus Magnesium Alkaline Phosphatase Albumin 01/25/21 07:31 WBC MCHC RDW Seg Neuts % (Manual) Lymphocytes % (Manual) Seg Neutrophils # Man Lymphocytes # (Manual) Monocytes # (Manual) VBG pH Sodium Potassium Chloride Carbon Dioxide BUN Creatinine Glucose POC Glucose 264 H Calcium Phosphorus Magnesium Alkaline Phosphatase Albumin Chest x-ray: report reviewed, image reviewed Additional Studies: CHEST 1 VIEW 01/22/2021 9:58 AM INDICATION / CLINICAL INFORMATION: fever. COMPARISON: None available. FINDINGS: SUPPORT DEVICES: None. HEART / MEDIASTINUM: No significant abnormality. LUNGS / PLEURA: No significant pulmonary or pleural abnormality. No pneumothorax. ADDITIONAL FINDINGS: No significant additional findings. IMPRESSION: 1. No acute findings.
--- NOTE | 2021-01-25 11:25 | Progress Note ---
Assessment and Plan Assessment and plan: 30 YO Female with DM, Obesity presents to ED for evaluation. Pt reports " my blood sugar is high, and my butt is sore". Patient states that she has experienced redness, swelling, tenderness in her right buttock over the last 3 days with persistently worsening symptoms over the same timeframe. Patient also acknowledges high blood glucose levels. Patient transported to [facility] via private vehicle for further care and evaluation of the aforementioned symptoms. The patient was seen and evaluated in the emergency department. All lab and imaging studies reviewed. The patient was found to have diabetic ketoacidosis complicated by metabolic acidosis, right buttock cellulitis complicated by sepsis. Patient admitted to ICU and initiated on DKA as well as sepsis protocols respectively. Patient treated with IV fluid resuscitation therapy as well. Patient denies fever, chills, chest pain, palpitation, productive cough, recent ill contacts, or known exposure to COVID-19. No prior admission for review. No medication listed at time of admission for reconciliation. Critical care consult placed in ED. 01/23: Patient seen and examined, no fever, no new complaints, wound dressing in place,. Anion Gap closed. She states she uses 70 lantus at night along with sliding scale with meals, Will transition to sq insulin and start lantus at 50. Will re-evaluate wound, Awaiting CT pelvis ordered yesterday urgently- I Understand will be done today. this will help evaluate for abscess that may require I/D Wound care consult Continue abx. Hypokalemiareplace Anticipate discharge in a.m. if remains stable and does not require any debridement 01/24: We will continue to monitor ID input noted. Continue antibiotics CT scan reviewed no drainable fluid noted but inflammation noted. Patient reported that the site bled through the night. Dressing being done at this time. Mild pseudohyponatremia noted will monitor closely while addressing blood sugar is still elevated. Anticipate discharge in next 24 hours this has been discussed with the patient and she verbalized understanding. We will discontinue IV fluid as patient is tolerating food. She also has some pain will adjust her pain medication for better control. 01/25: Continue supportive care, obtain Surgery evaluation as ID believes that this patient may eventually need drainage if organized. Will increase insulin coverage. Replace K. Sodium improving. (1) Sepsis Current Visit: Yes Status: Acute Plan to address problem: Sepsis protocol: CBC, CMP, IV antibiotic therapy, IV fluid resuscitation therapy, serial lactic acid level, blood culture, maintain mean arterial pressure greater than or equal to 65. (2) DKA (diabetic ketoacidoses) Current Visit: Yes Status: Acute Qualifiers: Diabetes mellitus type: type 1 Plan to address problem: DKA protocol: Insulin drip, IV fluid resuscitation therapy, serial BMP, monitor potassium level, replete potassium levels in accordance with potassium protocol, monitor anion gap (3) Metabolic acidosis Current Visit: Yes Status: Acute Plan to address problem: IV fluid resuscitation therapy, BMP, serial lactic acid level, (4) Obesity (BMI 30.0-34.9) Current Visit: Yes Status: Acute Plan to address problem: Balanced diet, increase physical activity at discharge (5) Cellulitis of right buttock Current Visit: Yes Status: Acute Plan to address problem: CBC, BMP, IV antibiotic therapy, supportive care. CT scan pelvis to evaluate for necrotizing soft tissue infection (6) pseudohyponatremia (7) Hypokalemia (8) DVT prophylaxis Current Visit: Yes Status: Acute Plan to address problem: SCD to bilateral lower extremities while in bed History Interval history: Patient seen and examined, still with pain, low grade fever, CT result reviewed with the patient also lab results reviewed. Hospitalist Physical - Physical exam Narrative exam: General appearance: Present: No distress, obese - EENT Eyes: Present: PERRL ENT: hearing intact, clear oral mucosa - Neck Neck: Present: supple, normal ROM - Respiratory Respiratory effort: normal Respiratory: bilateral: CTA - Cardiovascular Heart Sounds: Present: S1 & S2. Absent: rub, click - Extremities Extremities: pulses symmetrical, No edema Peripheral Pulses: abnormal (Capillary refill greater than 3.5 seconds) - Abdominal General gastrointestinal: Present: soft, non-tender, non-distended, normal bowel sounds Female genitourinary: Present: normal - Integumentary Integumentary: Present: erythema dressing shear tender, (Right buttock: No crepitus, no fluctuance, no purulent discharge.) - Musculoskeletal Musculoskeletal: gait normal, strength equal bilaterally - Psychiatric Psychiatric: appropriate mood/affect, intact judgment & insight - Neurologic Neurologic: CNII-XII intact, moves all extremities - Constitutional Vitals: Temp Pulse Resp BP Pulse Ox 98.1 F 78 18 159/81 98 01/25/21 07:34 01/25/21 10:00 01/25/21 10:00 01/25/21 07:34 01/25/21 07:34 General appearance: Present: mild distress, obese Results - Labs CBC & Chem 7: 01/25/21 05:11 01/25/21 05:11 Labs: Laboratory Last Values WBC 17.3 K/mm3 (4.5-11.0) H 01/25/21 05:11 RBC 3.67 M/mm3 (3.65-5.03) 01/25/21 05:11 Hgb 11.7 gm/dl (10.1-14.3) 01/25/21 05:11 Hct 32.7 % (30.3-42.9) 01/25/21 05:11 MCV 89 fl (79-97) 01/25/21 05:11 MCH 32 pg (28-32) 01/25/21 05:11 MCHC 36 % (30-34) H 01/25/21 05:11 RDW 12.4 % (13.2-15.2) L 01/25/21 05:11 Plt Count 291 K/mm3 (140-440) 01/25/21 05:11 Add Manual Diff Complete 01/24/21 11:30 Total Counted 100 01/24/21 11:30 Seg Neuts % (Manual) 88.5 % (40.0-70.0) H 01/23/21 04:17 Band Neutrophils % 5.0 % 01/23/21 04:17 Lymphocytes % (Manual) 6.0 % (13.4-35.0) L 01/24/21 11:30 Monocytes % (Manual) 1.0 % (0.0-7.3) 01/24/21 11:30 Eosinophils % (Manual) 1.0 % (0.0-4.3) 01/24/21 11:30 Nucleated RBC % Not Reportable 01/24/21 11:30 Seg Neutrophils # Man 18.5 K/mm3 (1.8-7.7) H 01/24/21 11:30 Band Neutrophils # 0.0 K/mm3 01/24/21 11:30 Lymphocytes # (Manual) 1.2 K/mm3 (1.2-5.4) 01/24/21 11:30 Abs React Lymphs (Man) 0.0 K/mm3 01/24/21 11:30 Monocytes # (Manual) 0.2 K/mm3 (0.0-0.8) 01/24/21 11:30 Eosinophils # (Manual) 0.2 K/mm3 (0.0-0.4) 01/24/21 11:30 Basophils # (Manual) 0.0 K/mm3 (0.0-0.1) 01/24/21 11:30 Metamyelocytes # 0.0 K/mm3 01/24/21 11:30 Myelocytes # 0.0 K/mm3 01/24/21 11:30 Promyelocytes # 0.0 K/mm3 01/24/21 11:30 Blast Cells # 0.0 K/mm3 01/24/21 11:30 WBC Morphology Not Reportable 01/24/21 11:30 Hypersegmented Neuts Not Reportable 01/24/21 11:30 Hyposegmented Neuts Not Reportable 01/24/21 11:30 Hypogranular Neuts Not Reportable 01/24/21 11:30 Smudge Cells Not Reportable 01/24/21 11:30 Toxic Granulation Not Reportable 01/24/21 11:30 Toxic Vacuolation Not Reportable 01/24/21 11:30 Dohle Bodies Not Reportable 01/24/21 11:30 Pelger-Huet Anomaly Not Reportable 01/24/21 11:30 Ozzy Rods Not Reportable 01/24/21 11:30 Platelet Estimate Consistent w auto 01/24/21 11:30 Clumped Platelets Not Reportable 01/24/21 11:30 Plt Clumps, EDTA Not Reportable 01/24/21 11:30 Large Platelets Not Reportable 01/24/21 11:30 Giant Platelets Not Reportable 01/24/21 11:30 Platelet Satelliting Not Reportable 01/24/21 11:30 Plt Morphology Comment Not Reportable 01/24/21 11:30 RBC Morphology Normal 01/24/21 11:30 Dimorphic RBCs Not Reportable 01/24/21 11:30 Polychromasia Not Reportable 01/24/21 11:30 Hypochromasia Not Reportable 01/24/21 11:30 Poikilocytosis Not Reportable 01/24/21 11:30 Anisocytosis Not Reportable 01/24/21 11:30 Microcytosis Not Reportable 01/24/21 11:30 Macrocytosis Not Reportable 01/24/21 11:30 Spherocytes Not Reportable 01/24/21 11:30 Pappenheimer Bodies Not Reportable 01/24/21 11:30 Sickle Cells Not Reportable 01/24/21 11:30 Target Cells Not Reportable 01/24/21 11:30 Tear Drop Cells Not Reportable 01/24/21 11:30 Ovalocytes Not Reportable 01/24/21 11:30 Helmet Cells Not Reportable 01/24/21 11:30 Santacruz-Rocklin Bodies Not Reportable 01/24/21 11:30 Winston Rings Not Reportable 01/24/21 11:30 Su Cells Not Reportable 01/24/21 11:30 Bite Cells Not Reportable 01/24/21 11:30 Crenated Cell Not Reportable 01/24/21 11:30 Elliptocytes Not Reportable 01/24/21 11:30 Acanthocytes (Spur) Not Reportable 01/24/21 11:30 Rouleaux Not Reportable 01/24/21 11:30 Hemoglobin C Crystals Not Reportable 01/24/21 11:30 Schistocytes Not Reportable 01/24/21 11:30 Malaria parasites Not Reportable 01/24/21 11:30 Kal Bodies Not Reportable 01/24/21 11:30 Hem Pathologist Commnt No 01/24/21 11:30 VBG pH 7.303 (7.320-7.420) L 01/22/21 04:39 Sodium 130 mmol/L (137-145) L 01/25/21 05:11 Potassium 3.2 mmol/L (3.6-5.0) L 01/25/21 05:11 Chloride 93.7 mmol/L (98-107) L 01/25/21 05:11 Carbon Dioxide 23 mmol/L (22-30) 01/25/21 05:11 Anion Gap 17 mmol/L 01/25/21 05:11 BUN 4 mg/dL (7-17) L 01/25/21 05:11 Creatinine 0.4 mg/dL (0.6-1.2) L 01/25/21 05:11 Estimated GFR > 60 ml/min 01/25/21 05:11 BUN/Creatinine Ratio 10 % 01/25/21 05:11 Glucose 257 mg/dL (65-100) H 01/25/21 05:11 POC Glucose 264 mg/dL (70-105) H 01/25/21 07:31 Lactic Acid 1.10 mmol/L (0.7-2.0) 01/22/21 22:26 Calcium 7.9 mg/dL (8.4-10.2) L 01/25/21 05:11 Phosphorus 1.30 mg/dL (2.5-4.5) L D 01/22/21 18:18 Magnesium 1.60 mg/dL (1.7-2.3) L 01/22/21 18:18 Total Bilirubin 0.50 mg/dL (0.1-1.2) 01/22/21 04:39 AST 9 units/L (5-40) 01/22/21 04:39 ALT 8 units/L (7-56) 01/22/21 04:39 Alkaline Phosphatase 131 units/L (35-129) H 01/22/21 04:39 Total Protein 7.3 g/dL (6.3-8.2) 01/22/21 04:39 Albumin 3.5 g/dL (3.9-5) L 01/22/21 04:39 Albumin/Globulin Ratio 0.9 % 01/22/21 04:39 HCG, Qual Negative (Negative) 01/22/21 04:39 Urine Color Yellow (Yellow) 01/22/21 06:08 Urine Turbidity Clear (Clear) 01/22/21 06:08 Urine pH 6.0 (5.0-7.0) 01/22/21 06:08 Ur Specific [place] 1.024 (1.003-1.030) 01/22/21 06:08 Urine Protein 30 mg/dl mg/dL (Negative) 01/22/21 06:08 Urine Glucose (UA) >=500 mg/dL (Negative) 01/22/21 06:08 Urine Ketones 80 mg/dL (Negative) 01/22/21 06:08 Urine Blood Neg (Negative) 01/22/21 06:08 Urine Nitrite Neg (Negative) 01/22/21 06:08 Urine Bilirubin Neg (Negative) 01/22/21 06:08 Urine Urobilinogen 2.0 mg/dL (<2.0) 01/22/21 06:08 Ur Leukocyte Esterase Neg (Negative) 01/22/21 06:08 Urine WBC (Auto) 3.0 /HPF (0.0-6.0) 01/22/21 06:08 Urine RBC (Auto) 2.0 /HPF (0.0-6.0) 01/22/21 06:08 U Epithel Cells (Auto) 2.0 /HPF (0-13.0) 01/22/21 06:08 Urine Mucus Few /HPF 01/22/21 06:08 Microbiology: Microbiology 01/22/21 10:25 Peripheral/Venous Blood Culture - Preliminary NO GROWTH AFTER 48 HOURS 01/22/21 10:19 Peripheral/Venous Blood Culture - Preliminary NO GROWTH AFTER 48 HOURS Trammell/IV: Voiding Method Toilet Active Medications - Current Medications Current Medications: Generic Name Dose Route Start Last Admin Trade Name Freq PRN Reason Stop Dose Admin Acetaminophen 650 mg 01/22/21 16:28 01/25/21 04:16 Acetaminophen 325 Mg Tab PO 650 mg Q6H PRN Administration Pain, Mild (1-3) Albuterol 2.5 mg 01/22/21 13:04 Albuterol 2.5 Mg/3 Ml Nebu IH Q3HRT PRN Shortness Of Breath Dextrose 50 ml 01/23/21 08:27 Dextrose 50% In Water (25gm) 50 Ml Syringe IV Q30MIN PRN Hypoglycemia Protocol Hydromorphone HCl 0.5 mg 01/25/21 09:05 Hydromorphone 1 Mg/1 Ml Inj IV Q4H PRN Pain, Moderate (4-6) Ceftriaxone Sodium 2 gm in 100 mls @ 200 mls/hr 01/23/21 11:00 01/25/21 09:02 Rocephin/Ns 2 Gm/100 Ml IV 200 mls/hr Q24HR LESTER Administration Protocol Vancomycin HCl 1,250 mg/ 275 mls @ 166.667 mls/hr 01/24/21 12:00 01/24/21 23:10 Sodium Chloride IV 166.667 mls/hr Q12H LESTER Administration Insulin Glargine 70 units 01/25/21 22:00 Insulin Glargine 100 Units/Ml SUB-Q QHS LESTER Insulin Human Lispro 0 unit 01/23/21 11:30 01/25/21 07:30 Insulin Lispro 100 Unit/Ml SUB-Q 6 unit ACHS LESTER Administration Protocol Potassium Chloride 40 meq 01/25/21 09:03 Potassium Chloride Er 20 Meq Tab PO 01/25/21 12:00 ONCE NR Sodium Chloride 10 ml 01/22/21 22:00 01/25/21 09:03 Sodium Chloride 0.9% 10 Ml Flush Syringe IV 10 ml BID LESTER Administration Sodium Chloride 10 ml 01/22/21 13:04 Sodium Chloride 0.9% 10 Ml Flush Syringe IV PRN PRN LINE FLUSH Nutrition/Malnutrition Assess - Dietary Evaluation Nutrition/Malnutrition Findings: Nutrition Notes Start: 01/24/21 12:20 Freq: Status: Active Protocol: Document 01/24/21 12:20 FROY (Rec: 01/24/21 12:27 [id number]) Nutrition Notes Need for Assessment generated from: 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 Pt with buttox cellulitis. Pt denied DM diet education. 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 Pt now eating 50% of meals. Burn Absent Trauma Absent GI Symptoms Nausea Current % PO Poor (25-49%) Minimum of two criteria No physical signs of malnutrition #2 Nutrition Diagnosis Increased nutrient needs ( specify in comment below) Comments: protein Etiology wound healing As Evidenced by Signs and Symptoms buttox wound #1 Nutrition Diagnosis Inadequate oral intake Etiology buttox wound As Evidenced by Signs and Symptoms pt eating 50% of meals Is patient on ventilator? No Is Patient Ambulatory and/or Out of Bed No [facility] [phone] Calculation Used for Recommendations [facility] Additional Notes Protein: (1.25-1.5 g/kg AdjBW: 64 kg) 81-96g Fluid: 1 ml/kcal Nutrition Intervention Change Diet Order: Continue Add Supplement/Snack (indicate name/kcal Glucerna BID /protein ) Provides kCal: 440 Provides Protein (gm) 20 Goal #1 Meet at least 75% of protein and energy needs via PO and ONS intakes Anticipated Discharge Needs: Consistent CHO Follow-Up By: 01/26/21 Additional Comments FU for intakes and ONS tolerance
[2021-01-25] MEDS: VANCOMYCIN 1,250 MG in SODIUM CHLORIDE 0.9% 250ML 250 ML IV SCH ×2 (12:01→23:43)
--- NOTE | 2021-01-25 13:12 | Progress Note ---
Assessment and Plan Cultures: 01/22/2021 blood culture: no growth A/P: 30-year-old female with diabetes mellitus admitted to the hospital with pain in her right buttock and DKA: #Sepsis, secondary to right buttock cellulitis: CT scan negative for abscess, but persistent leucocytosis and low grade fevers. #Diabetes mellitus, uncontrolled, was admitted with diabetic ketoacidosis Recs: -continue Ceftriaxone, continue IV Vancomycin -clindamycin completed -persistent leucocytosis and low grade fevers, awaiting OR, please also send deep cultures from any purulence encountered Maverick Pierce MD, FACP [facility] O: [phone] F: [phone] Subjective Date of service: 01/25/21 Interval history: Pain in buttock +, low grade fever +. Planned for OR Objective - Exam Narrative Exam: Physical Exam: Constitutional: Alert, cooperative. No acute distress Head, Ears, Nose: Normocephalic, atraumatic. External ears, nose normal Eyes: Conjunctivae/corneas clear. No icterus. No ptosis. Neck: Supple, no meningeal signs Cardiovascular: S1, S2 normal. Respiratory: Good air entry, clear to auscultation bilaterally GI: Soft, non-tender; bowel sounds normal. No peritoneal signs Musculoskeletal: No pedal edema, no cyanosis. Skin: Right buttock with induration, swelling, tenderness, dressing present Hem/Lymphatic: No palpable cervical or supraclavicular nodes. No lymphangitis Psych: Mood ok. Affect normal Neurological: Awake, alert, oriented. No gross abnormality - Constitutional Vitals: Vital Signs Temp Pulse Resp BP Pulse Ox 98.1 F 105 H 18 172/97 99 01/25/21 07:34 01/25/21 12:23 01/25/21 10:00 01/25/21 12:23 01/25/21 12:23 Temperature -Last 24 Hours Temperature 98.1 F Temperature 100.9 F Temperature 100.2 F Temperature 99.9 F Temperature 99.9 F Temperature 98.1 F - Labs CBC & Chem 7: 01/25/21 05:11 01/25/21 05:11 Labs: Abnormal lab results 01/24/21 01/24/21 01/24/21 Range/Units 07:30 11:33 16:06 WBC (4.5-11.0) K/mm3 MCHC (30-34) % RDW (13.2-15.2) % Sodium (137-145) mmol/L Potassium (3.6-5.0) mmol/L Chloride (98-107) mmol/L BUN (7-17) mg/dL Creatinine (0.6-1.2) mg/dL Glucose (65-100) mg/dL POC Glucose 255 H 293 H 230 H (70-105) mg/dL Calcium (8.4-10.2) mg/dL 01/24/21 01/25/21 01/25/21 Range/Units 20:47 05:11 05:11 WBC 17.3 H (4.5-11.0) K/mm3 MCHC 36 H (30-34) % RDW 12.4 L (13.2-15.2) % Sodium 130 L (137-145) mmol/L Potassium 3.2 L (3.6-5.0) mmol/L Chloride 93.7 L (98-107) mmol/L BUN 4 L (7-17) mg/dL Creatinine 0.4 L (0.6-1.2) mg/dL Glucose 257 H (65-100) mg/dL POC Glucose 333 H (70-105) mg/dL Calcium 7.9 L (8.4-10.2) mg/dL 01/25/21 Range/Units 07:31 WBC (4.5-11.0) K/mm3 MCHC (30-34) % RDW (13.2-15.2) % Sodium (137-145) mmol/L Potassium (3.6-5.0) mmol/L Chloride (98-107) mmol/L BUN (7-17) mg/dL Creatinine (0.6-1.2) mg/dL Glucose (65-100) mg/dL POC Glucose 264 H (70-105) mg/dL Calcium (8.4-10.2) mg/dL
--- NOTE | 2021-01-25 13:39 | Consultation ---
History of Present Illness Consult date: 01/25/21 Reason for consult: wound care - History of present illness History of present illness: 30 year old female type 1 diabetic who was admitted to the hospital 3 days ago in DKA with a buttock wound. she says that it started acutely about 3 days prior to admission. she was initially stabilized and treated in the ICU, and then downgraded to the floor for continued care. At this evaluation she says that she continues to have pain in her buttock. she denies trauma or insect bite. Past History Past Medical History: diabetes, other (See HPI) Past Surgical History: Social history: single. denies: smoking, alcohol abuse, prescription drug abuse Family history: diabetes, hypertension Medications and Allergies Allergies Allergy/AdvReac Type Severity Reaction Status Date / Time No Known Allergies Allergy Unverified 01/22/21 04:28 Home Medications Medication Instructions Recorded Confirmed Last Taken Type amLODIPine 10 mg PO DAILY 01/22/21 01/23/21 01/21/21 History 10 Insulin Detemir [Levemir] 70 unit SQ HS 01/23/21 01/23/21 01/21/21 History Lisinopril 40 mg PO DAILY 01/23/21 01/23/21 01/23/21 10:37 History Active Meds: Active Medications Acetaminophen (Acetaminophen 325 Mg Tab) 650 mg PO Q6H PRN PRN Reason: Pain, Mild (1-3) Last Admin: 01/25/21 04:16 Dose: 650 mg Documented by: Albuterol (Albuterol 2.5 Mg/3 Ml Nebu) 2.5 mg IH Q3HRT PRN PRN Reason: Shortness Of Breath Dextrose (Dextrose 50% In Water (25gm) 50 Ml Syringe) 50 ml IV Q30MIN PRN; Protocol PRN Reason: Hypoglycemia Hydromorphone HCl (Hydromorphone 1 Mg/1 Ml Inj) 0.5 mg IV Q4H PRN PRN Reason: Pain, Moderate (4-6) Last Admin: 01/25/21 12:07 Dose: 0.5 mg Documented by: Ceftriaxone Sodium (Rocephin/Ns 2 Gm/100 Ml) 2 gm in 100 mls @ 200 mls/hr IV Q24HR LESTER; Protocol Last Admin: 01/25/21 09:02 Dose: 200 mls/hr Documented by: Vancomycin HCl 1,250 mg/ (Sodium Chloride) 275 mls @ 166.667 mls/hr IV Q12H [facility] Last Admin: 01/25/21 12:01 Dose: 166.667 mls/hr Documented by: Insulin Glargine (Insulin Glargine 100 Units/Ml) 70 units SUB-Q QHS LESTER Insulin Human Lispro (Insulin Lispro 100 Unit/Ml) 0 unit SUB-Q ACHS LESTER; Protocol Last Admin: 01/25/21 11:49 Dose: 4 unit Documented by: Sodium Chloride (Sodium Chloride 0.9% 10 Ml Flush Syringe) 10 ml IV BID [facility] Last Admin: 01/25/21 09:03 Dose: 10 ml Documented by: Sodium Chloride (Sodium Chloride 0.9% 10 Ml Flush Syringe) 10 ml IV PRN PRN PRN Reason: LINE FLUSH Review of Systems - Constitutional no weight loss, no weight gain - Cardiovascular no chest pain - Respiratory no cough with sputum, no shortness of breath - Gastrointestinal no abdominal pain, no nausea Exam Vital Signs Temp Pulse Resp BP Pulse Ox 99.2 F 119 H 18 143/76 100 01/22/21 04:14 01/22/21 04:14 01/22/21 04:14 01/22/21 04:14 01/22/21 04:14 - General physical appearance Positive: well developed, well nourished, no distress, moderate pain - Respiratory Positive: normal expansion, normal respiratory effort - Abdomen Abdomen: Present: soft. Absent: tender - Integumentary other (6x8cm indurated area on the inferior portion of her right buttock. area of skin with necrotic changes. No drainage, or odor. Some erythema at the periphery) Results - Labs 01/25/21 05:11 01/25/21 05:11 Abnormal lab results 01/24/21 01/24/21 01/25/21 Range/Units 16:06 20:47 05:11 WBC 17.3 H (4.5-11.0) K/mm3 MCHC 36 H (30-34) % RDW 12.4 L (13.2-15.2) % Sodium (137-145) mmol/L Potassium (3.6-5.0) mmol/L Chloride (98-107) mmol/L BUN (7-17) mg/dL Creatinine (0.6-1.2) mg/dL Glucose (65-100) mg/dL POC Glucose 230 H 333 H (70-105) mg/dL Calcium (8.4-10.2) mg/dL 01/25/21 01/25/21 01/25/21 Range/Units 05:11 07:31 11:05 WBC (4.5-11.0) K/mm3 MCHC (30-34) % RDW (13.2-15.2) % Sodium 130 L (137-145) mmol/L Potassium 3.2 L (3.6-5.0) mmol/L Chloride 93.7 L (98-107) mmol/L BUN 4 L (7-17) mg/dL Creatinine 0.4 L (0.6-1.2) mg/dL Glucose 257 H (65-100) mg/dL POC Glucose 264 H 209 H (70-105) mg/dL Calcium 7.9 L (8.4-10.2) mg/dL Diabetes panel 01/25/21 Range/Units 05:11 Sodium 130 L (137-145) mmol/L Potassium 3.2 L (3.6-5.0) mmol/L Chloride 93.7 L (98-107) mmol/L Carbon Dioxide 23 (22-30) mmol/L BUN 4 L (7-17) mg/dL Creatinine 0.4 L (0.6-1.2) mg/dL Glucose 257 H (65-100) mg/dL Calcium 7.9 L (8.4-10.2) mg/dL Calcium panel 01/25/21 Range/Units 05:11 Calcium 7.9 L (8.4-10.2) mg/dL Pituitary panel 01/25/21 Range/Units 05:11 Sodium 130 L (137-145) mmol/L Potassium 3.2 L (3.6-5.0) mmol/L Chloride 93.7 L (98-107) mmol/L Carbon Dioxide 23 (22-30) mmol/L BUN 4 L (7-17) mg/dL Creatinine 0.4 L (0.6-1.2) mg/dL Glucose 257 H (65-100) mg/dL Calcium 7.9 L (8.4-10.2) mg/dL Adrenal panel 01/25/21 Range/Units 05:11 Sodium 130 L (137-145) mmol/L Potassium 3.2 L (3.6-5.0) mmol/L Chloride 93.7 L (98-107) mmol/L Carbon Dioxide 23 (22-30) mmol/L BUN 4 L (7-17) mg/dL Creatinine 0.4 L (0.6-1.2) mg/dL Glucose 257 H (65-100) mg/dL Calcium 7.9 L (8.4-10.2) mg/dL - Imaging CT scan - abdomen: report reviewed CT scan - pelvis: report reviewed, image reviewed (Inflammed soft tissue fat stranding right buttock, no signs of gas in the tissues or abscess cavity. no involvement of the underlying muscle or fascia) Assessment and Plan 30 year old female with type 1 diabetes and resolving DKA, with right buttock. Afebrile and stable. will take to OR tomorrow for wound debridement and I&D. continue abx per ID.
--- NOTE | 2021-01-25 14:10 | Anesthesia Consultation ---
Anesthesia Consult and Med Hx Date of service: 01/26/21 - Airway Anesthetic Teeth Evaluation: Good ROM Head & Neck: Adequate Mental/Hyoid Distance: Adequate Mallampati Class: Class II Intubation Access Assessment: Probably Good - Pulmonary Exam CTA: Yes - Cardiac Exam Cardiac Exam: RRR - Pre-Operative Health Status ASA Pre-Surgery Classification: ASA3 Proposed Anesthetic Plan: General, MAC - Pulmonary Hx Smoking: No Hx Asthma: No COPD: No Hx Pneumonia: No - Cardiovascular System Hx Hypertension: Yes Hx Coronary Artery Disease: No Hx Heart Attack/AMI: No Hx Cardia Arrhythmia: No Hx Heart Murmur: No - Central Nervous System Hx Neuromuscular Disorder: No Hx Seizures: No CVA: No Hx Psychiatric Problems: No - Gastrointestinal Hx Ulcer: No Hx Gastroesophageal Reflux Disease: Yes (occasionally, relieved with OTC medication) - Endocrine Hx End Stage Renal Disease: No Hx Insulin Dependent Diabetes: Yes Hx Thyroid Disease: No - Hematic Hx Anemia: No - Other Systems Hx Alcohol Use: No Hx Substance Use: No - Additional Comments Anesthesia Medical History Comments: No history of GAC or FH of anesthesia complications.
[2021-01-25] MEDS ORDERED: hydrALAZINE 20 MG/1 ML INJ IV PRN (16:35)
[2021-01-25] MEDS ORDERED: LISINOPRIL 20 MG TAB PO SCH (17:00)
[2021-01-25] MEDS: INSULIN GLARGINE 100 UNITS/ML SUB-Q SCH (21:27)
[2021-01-26] MEDS: HYDROmorphone 1 MG/1 ML INJ IV PRN ×3 (02:21→19:49)
[2021-01-26] MEDS: INSULIN LISPRO 100 UNIT/ML SUB-Q SCH ×4 (08:09→22:15)
[2021-01-26] MEDS ORDERED: AMLODIPINE PO SCH (10:00)
[2021-01-26] MEDS: amLODIPine 10 MG TAB PO SCH (10:14)
[2021-01-26] MEDS: LISINOPRIL 20 MG TAB PO SCH (10:14)
[2021-01-26] MEDS: cefTRIAXone/NS 2 GM/100 ML 2 GM/100 ML BAG IV SCH (10:17)
--- NOTE | 2021-01-26 11:31 | Progress Note ---
Assessment and Plan Cultures: 01/22/2021 blood culture: no growth A/P: 30-year-old female with diabetes mellitus admitted to the hospital with pain in her right buttock and DKA: #Sepsis, secondary to right buttock cellulitis: CT scan negative for abscess, but persistent leucocytosis and low grade fevers. #Diabetes mellitus, uncontrolled, was admitted with diabetic ketoacidosis Recs: -continue Ceftriaxone, continue IV Vancomycin with trough monitoring -persistent leucocytosis and low grade fevers, awaiting OR, please also send deep cultures from any purulence encountered Maverick Pierce MD, FACP [facility] O: [phone] F: [phone] Subjective Date of service: 01/26/21 Interval history: Pain in buttock +, low grade fever +. Awaiting OR today. Objective - Exam Narrative Exam: Physical Exam: Constitutional: Alert, cooperative. No acute distress Head, Ears, Nose: Normocephalic, atraumatic. External ears, nose normal Eyes: Conjunctivae/corneas clear. No icterus. No ptosis. Neck: Supple, no meningeal signs Cardiovascular: S1, S2 normal. Respiratory: Good air entry, clear to auscultation bilaterally GI: Soft, non-tender; bowel sounds normal. No peritoneal signs Musculoskeletal: No pedal edema, no cyanosis. Skin: Right buttock with induration, swelling, tenderness, dressing present Hem/Lymphatic: No palpable cervical or supraclavicular nodes. No lymphangitis Psych: Mood ok. Affect normal Neurological: Awake, alert, oriented. No gross abnormality - Constitutional Vitals: Vital Signs Temp Pulse Resp BP Pulse Ox 100.4 F H 95 H 20 148/78 97 01/26/21 07:39 01/26/21 07:39 01/26/21 07:39 01/26/21 07:39 01/26/21 07:39 Temperature -Last 24 Hours Temperature 100.4 F Temperature 99.6 F Temperature 100.0 F Temperature 99.5 F Temperature 98.3 F - Labs CBC & Chem 7: 01/25/21 05:11 01/25/21 05:11 Labs: Abnormal lab results 01/25/21 01/25/21 01/25/21 Range/Units 11:05 16:03 20:17 D-Dimer (0-234) ng/mlDDU POC Glucose 209 H 149 H 263 H (70-105) mg/dL 01/26/21 01/26/21 Range/Units 07:41 08:16 D-Dimer 375.53 H (0-234) ng/mlDDU POC Glucose 166 H (70-105) mg/dL
--- NOTE | 2021-01-26 11:55 | Progress Note ---
Assessment and Plan Assessment and plan: 30 YO Female with DM, Obesity presents to ED for evaluation. Pt reports " my blood sugar is high, and my butt is sore". Patient states that she has experienced redness, swelling, tenderness in her right buttock over the last 3 days with persistently worsening symptoms over the same timeframe. Patient also acknowledges high blood glucose levels. Patient transported to [facility] via private vehicle for further care and evaluation of the aforementioned symptoms. The patient was seen and evaluated in the emergency department. All lab and imaging studies reviewed. The patient was found to have diabetic ketoacidosis complicated by metabolic acidosis, right buttock cellulitis complicated by sepsis. Patient admitted to ICU and initiated on DKA as well as sepsis protocols respectively. Patient treated with IV fluid resuscitation therapy as well. Patient denies fever, chills, chest pain, palpitation, productive cough, recent ill contacts, or known exposure to COVID-19. No prior admission for review. No medication listed at time of admission for reconciliation. Critical care consult placed in ED. 01/23: Patient seen and examined, no fever, no new complaints, wound dressing in place,. Anion Gap closed. She states she uses 70 lantus at night along with sliding scale with meals, Will transition to sq insulin and start lantus at 50. Will re-evaluate wound, Awaiting CT pelvis ordered yesterday urgently- I Understand will be done today. this will help evaluate for abscess that may require I/D Wound care consult Continue abx. Hypokalemiareplace Anticipate discharge in a.m. if remains stable and does not require any debridement 01/24: We will continue to monitor ID input noted. Continue antibiotics CT scan reviewed no drainable fluid noted but inflammation noted. Patient reported that the site bled through the night. Dressing being done at this time. Mild pseudohyponatremia noted will monitor closely while addressing blood sugar is still elevated. Anticipate discharge in next 24 hours this has been discussed with the patient and she verbalized understanding. We will discontinue IV fluid as patient is tolerating food. She also has some pain will adjust her pain medication for better control. 01/25: Continue supportive care, obtain Surgery evaluation as ID believes that this patient may eventually need drainage if organized. Will increase insulin coverage. Replace K. Sodium improving. 01/26: Noted increased Tachycardia, no respiratory distress but states that she is anxious. Will evaluate and rule out Pulmonary embolisim as patient has elevated D.dimer. Patient is for OR today for debridement of narcotizing cellulitis and follow cultures. We will also continue adjusting insulin for better blood sugar control. (1) Sepsis Current Visit: Yes Status: Acute Plan to address problem: Sepsis protocol: CBC, CMP, IV antibiotic therapy, IV fluid resuscitation therapy, serial lactic acid level, blood culture, maintain mean arterial pressure greater than or equal to 65. (2) DKA (diabetic ketoacidoses) Current Visit: Yes Status: Acute Qualifiers: Diabetes mellitus type: type 1 Plan to address problem: She was treated with DKA protocol (3) Metabolic acidosis Current Visit: Yes Status: Acute Plan to address problem: Resolved (4) Obesity (BMI 30.0-34.9) Current Visit: Yes Status: Acute Plan to address problem: Balanced diet, increase physical activity at discharge (5) Cellulitis of right buttock Current Visit: Yes Status: Acute Plan to address problem: CBC, BMP, IV antibiotic therapy, supportive care. CT scan pelvis to evaluate for necrotizing soft tissue infection (6) pseudohyponatremia (7) Hypokalemia (8) elevated D-dimer (9) DVT prophylaxis Current Visit: Yes Status: Acute Plan to address problem: SCD to bilateral lower extremities while in bed History Interval history: Patient seen and examined, still with pain, low grade fever, increased tachycardia but no respiratory distress. Hospitalist Physical - Physical exam Narrative exam: General appearance: Present: No distress, obese - EENT Eyes: Present: PERRL ENT: hearing intact, clear oral mucosa - Neck Neck: Present: supple, normal ROM - Respiratory Respiratory effort: normal Respiratory: bilateral: CTA - Cardiovascular Heart Sounds: Present: S1 & S2.tachycardia Absent: rub, click - Extremities Extremities: pulses symmetrical, No edema Peripheral Pulses: abnormal (Capillary refill greater than 3.5 seconds) - Abdominal General gastrointestinal: Present: soft, non-tender, non-distended, normal bowel sounds Female genitourinary: Present: normal - Integumentary Integumentary: Present: 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, (Right buttock: No crepitus, no fluctuance, no purulent discharge.) - Musculoskeletal Musculoskeletal: gait normal, strength equal bilaterally - Psychiatric Psychiatric: appropriate mood/affect, intact judgment & insight - Neurologic Neurologic: CNII-XII intact, moves all extremities - Constitutional Vitals: Temp Pulse Resp BP Pulse Ox 100.4 F H 95 H 20 148/78 97 01/26/21 07:39 01/26/21 07:39 01/26/21 07:39 01/26/21 07:39 01/26/21 07:39 General appearance: Present: mild distress, obese Results - Labs CBC & Chem 7: 01/25/21 05:11 01/25/21 05:11 Labs: Laboratory Last Values WBC 17.3 K/mm3 (4.5-11.0) H 01/25/21 05:11 RBC 3.67 M/mm3 (3.65-5.03) 01/25/21 05:11 Hgb 11.7 gm/dl (10.1-14.3) 01/25/21 05:11 Hct 32.7 % (30.3-42.9) 01/25/21 05:11 MCV 89 fl (79-97) 01/25/21 05:11 MCH 32 pg (28-32) 01/25/21 05:11 MCHC 36 % (30-34) H 01/25/21 05:11 RDW 12.4 % (13.2-15.2) L 01/25/21 05:11 Plt Count 291 K/mm3 (140-440) 01/25/21 05:11 Add Manual Diff Complete 01/24/21 11:30 Total Counted 100 01/24/21 11:30 Seg Neuts % (Manual) 88.5 % (40.0-70.0) H 01/23/21 04:17 Band Neutrophils % 5.0 % 01/23/21 04:17 Lymphocytes % (Manual) 6.0 % (13.4-35.0) L 01/24/21 11:30 Monocytes % (Manual) 1.0 % (0.0-7.3) 01/24/21 11:30 Eosinophils % (Manual) 1.0 % (0.0-4.3) 01/24/21 11:30 Nucleated RBC % Not Reportable 01/24/21 11:30 Seg Neutrophils # Man 18.5 K/mm3 (1.8-7.7) H 01/24/21 11:30 Band Neutrophils # 0.0 K/mm3 01/24/21 11:30 Lymphocytes # (Manual) 1.2 K/mm3 (1.2-5.4) 01/24/21 11:30 Abs React Lymphs (Man) 0.0 K/mm3 01/24/21 11:30 Monocytes # (Manual) 0.2 K/mm3 (0.0-0.8) 01/24/21 11:30 Eosinophils # (Manual) 0.2 K/mm3 (0.0-0.4) 01/24/21 11:30 Basophils # (Manual) 0.0 K/mm3 (0.0-0.1) 01/24/21 11:30 Metamyelocytes # 0.0 K/mm3 01/24/21 11:30 Myelocytes # 0.0 K/mm3 01/24/21 11:30 Promyelocytes # 0.0 K/mm3 01/24/21 11:30 Blast Cells # 0.0 K/mm3 01/24/21 11:30 WBC Morphology Not Reportable 01/24/21 11:30 Hypersegmented Neuts Not Reportable 01/24/21 11:30 Hyposegmented Neuts Not Reportable 01/24/21 11:30 Hypogranular Neuts Not Reportable 01/24/21 11:30 Smudge Cells Not Reportable 01/24/21 11:30 Toxic Granulation Not Reportable 01/24/21 11:30 Toxic Vacuolation Not Reportable 01/24/21 11:30 Dohle Bodies Not Reportable 01/24/21 11:30 Pelger-Huet Anomaly Not Reportable 01/24/21 11:30 Ozzy Rods Not Reportable 01/24/21 11:30 Platelet Estimate Consistent w auto 01/24/21 11:30 Clumped Platelets Not Reportable 01/24/21 11:30 Plt Clumps, EDTA Not Reportable 01/24/21 11:30 Large Platelets Not Reportable 01/24/21 11:30 Giant Platelets Not Reportable 01/24/21 11:30 Platelet Satelliting Not Reportable 01/24/21 11:30 Plt Morphology Comment Not Reportable 01/24/21 11:30 RBC Morphology Normal 01/24/21 11:30 Dimorphic RBCs Not Reportable 01/24/21 11:30 Polychromasia Not Reportable 01/24/21 11:30 Hypochromasia Not Reportable 01/24/21 11:30 Poikilocytosis Not Reportable 01/24/21 11:30 Anisocytosis Not Reportable 01/24/21 11:30 Microcytosis Not Reportable 01/24/21 11:30 Macrocytosis Not Reportable 01/24/21 11:30 Spherocytes Not Reportable 01/24/21 11:30 Pappenheimer Bodies Not Reportable 01/24/21 11:30 Sickle Cells Not Reportable 01/24/21 11:30 Target Cells Not Reportable 01/24/21 11:30 Tear Drop Cells Not Reportable 01/24/21 11:30 Ovalocytes Not Reportable 01/24/21 11:30 Helmet Cells Not Reportable 01/24/21 11:30 Santacruz-Creola Bodies Not Reportable 01/24/21 11:30 Axtell Rings Not Reportable 01/24/21 11:30 Su Cells Not Reportable 01/24/21 11:30 Bite Cells Not Reportable 01/24/21 11:30 Crenated Cell Not Reportable 01/24/21 11:30 Elliptocytes Not Reportable 01/24/21 11:30 Acanthocytes (Spur) Not Reportable 01/24/21 11:30 Rouleaux Not Reportable 01/24/21 11:30 Hemoglobin C Crystals Not Reportable 01/24/21 11:30 Schistocytes Not Reportable 01/24/21 11:30 Malaria parasites Not Reportable 01/24/21 11:30 Kal Bodies Not Reportable 01/24/21 11:30 Hem Pathologist Commnt No 01/24/21 11:30 D-Dimer 375.53 ng/mlDDU (0-234) H 01/26/21 08:16 VBG pH 7.303 (7.320-7.420) L 01/22/21 04:39 Sodium 130 mmol/L (137-145) L 01/25/21 05:11 Potassium 3.2 mmol/L (3.6-5.0) L 01/25/21 05:11 Chloride 93.7 mmol/L (98-107) L 01/25/21 05:11 Carbon Dioxide 23 mmol/L (22-30) 01/25/21 05:11 Anion Gap 17 mmol/L 01/25/21 05:11 BUN 4 mg/dL (7-17) L 01/25/21 05:11 Creatinine 0.4 mg/dL (0.6-1.2) L 01/25/21 05:11 Estimated GFR > 60 ml/min 01/25/21 05:11 BUN/Creatinine Ratio 10 % 01/25/21 05:11 Glucose 257 mg/dL (65-100) H 01/25/21 05:11 POC Glucose 166 mg/dL (70-105) H 01/26/21 07:41 Lactic Acid 1.10 mmol/L (0.7-2.0) 01/22/21 22:26 Calcium 7.9 mg/dL (8.4-10.2) L 01/25/21 05:11 Phosphorus 1.30 mg/dL (2.5-4.5) L D 01/22/21 18:18 Magnesium 1.60 mg/dL (1.7-2.3) L 01/22/21 18:18 Total Bilirubin 0.50 mg/dL (0.1-1.2) 01/22/21 04:39 AST 9 units/L (5-40) 01/22/21 04:39 ALT 8 units/L (7-56) 01/22/21 04:39 Alkaline Phosphatase 131 units/L (35-129) H 01/22/21 04:39 Total Protein 7.3 g/dL (6.3-8.2) 01/22/21 04:39 Albumin 3.5 g/dL (3.9-5) L 01/22/21 04:39 Albumin/Globulin Ratio 0.9 % 01/22/21 04:39 HCG, Qual Negative (Negative) 01/22/21 04:39 Urine Color Yellow (Yellow) 01/22/21 06:08 Urine Turbidity Clear (Clear) 01/22/21 06:08 Urine pH 6.0 (5.0-7.0) 01/22/21 06:08 Ur Specific Orange 1.024 (1.003-1.030) 01/22/21 06:08 Urine Protein 30 mg/dl mg/dL (Negative) 01/22/21 06:08 Urine Glucose (UA) >=500 mg/dL (Negative) 01/22/21 06:08 Urine Ketones 80 mg/dL (Negative) 01/22/21 06:08 Urine Blood Neg (Negative) 01/22/21 06:08 Urine Nitrite Neg (Negative) 01/22/21 06:08 Urine Bilirubin Neg (Negative) 01/22/21 06:08 Urine Urobilinogen 2.0 mg/dL (<2.0) 01/22/21 06:08 Ur Leukocyte Esterase Neg (Negative) 01/22/21 06:08 Urine WBC (Auto) 3.0 /HPF (0.0-6.0) 01/22/21 06:08 Urine RBC (Auto) 2.0 /HPF (0.0-6.0) 01/22/21 06:08 U Epithel Cells (Auto) 2.0 /HPF (0-13.0) 01/22/21 06:08 Urine Mucus Few /HPF 01/22/21 06:08 Microbiology: Microbiology 01/22/21 10:25 Peripheral/Venous Blood Culture - Preliminary NO GROWTH AFTER 72 HOURS 01/22/21 10:19 Peripheral/Venous Blood Culture - Preliminary NO GROWTH AFTER 72 HOURS Trammell/IV: Voiding Method Toilet Active Medications - Current Medications Current Medications: Generic Name Dose Route Start Last Admin Trade Name Freq PRN Reason Stop Dose Admin Acetaminophen 650 mg 01/22/21 16:28 01/25/21 04:16 Acetaminophen 325 Mg Tab PO 650 mg Q6H PRN Administration Pain, Mild (1-3) Albuterol 2.5 mg 01/22/21 13:04 Albuterol 2.5 Mg/3 Ml Nebu IH Q3HRT PRN Shortness Of Breath Amlodipine Besylate 10 mg 01/26/21 10:00 01/26/21 10:14 Amlodipine 10 Mg Tab PO 10 mg DAILY LESTER Administration Dextrose 50 ml 01/23/21 08:27 Dextrose 50% In Water (25gm) 50 Ml Syringe IV Q30MIN PRN Hypoglycemia Protocol Heparin Sodium (Porcine) 5,000 unit 01/26/21 14:00 Heparin 5,000 Unit/1 Ml Vial SUB-Q Q8HR LESTER Hydralazine HCl 10 mg 01/25/21 16:35 01/25/21 19:52 Hydralazine 20 Mg/1 Ml Inj IV 10 mg Q6HR PRN Administration Hypertension Hydromorphone HCl 0.5 mg 01/25/21 09:05 01/26/21 10:18 Hydromorphone 1 Mg/1 Ml Inj IV 0.5 mg Q4H PRN Administration Pain, Moderate (4-6) Ceftriaxone Sodium 2 gm in 100 mls @ 200 mls/hr 01/23/21 11:00 01/26/21 10:17 Rocephin/Ns 2 Gm/100 Ml IV 200 mls/hr Q24HR LESTER Administration Protocol Vancomycin HCl 1,250 mg/ 275 mls @ 166.667 mls/hr 01/24/21 12:00 01/25/21 23:43 Sodium Chloride IV 166.667 mls/hr Q12H LESTER Administration Insulin Glargine 70 units 01/25/21 22:00 01/25/21 21:27 Insulin Glargine 100 Units/Ml SUB-Q 70 units QHS LESTER Administration Insulin Human Lispro 0 unit 01/23/21 11:30 01/26/21 08:09 Insulin Lispro 100 Unit/Ml SUB-Q Not Given ACHS LESTER Protocol Lisinopril 40 mg 01/26/21 10:00 01/26/21 10:14 Lisinopril 20 Mg Tab PO 40 mg QDAY LESTER Administration Sodium Chloride 10 ml 01/22/21 22:00 01/26/21 10:16 Sodium Chloride 0.9% 10 Ml Flush Syringe IV 10 ml BID LESTER Administration Sodium Chloride 10 ml 01/22/21 13:04 Sodium Chloride 0.9% 10 Ml Flush Syringe IV PRN PRN LINE FLUSH Nutrition/Malnutrition Assess - Dietary Evaluation Nutrition/Malnutrition Findings: Nutrition Notes Start: 01/24/21 12:20 Freq: Status: Active Protocol: Document 01/24/21 12:20 (Rec: 01/24/21 12:27 [id number]) Nutrition Notes 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 Pt with buttox cellulitis. Pt denied DM diet education. Pt not eating well for 2.5 days [employer]ATH[employer] due to pain. Pt now eating 50% of meals. Burn Absent Trauma Absent GI Symptoms Nausea Current % PO Poor (25-49%) Minimum of two criteria No physical signs of malnutrition #2 Nutrition Diagnosis Increased nutrient needs ( specify in comment below) Comments: protein Etiology wound healing As Evidenced by Signs and Symptoms buttox wound #1 Nutrition Diagnosis Inadequate oral intake Etiology buttox wound As Evidenced by Signs and Symptoms pt eating 50% of meals Is patient on ventilator? No Is Patient Ambulatory and/or Out of Bed No REE-([facility]-confined to bed) 0742.525 Calculation Used for Recommendations [facility] Additional Notes Protein: (1.25-1.5 g/kg AdjBW: 64 kg) 81-96g Fluid: 1 ml/kcal Nutrition Intervention Change Diet Order: Continue Add Supplement/Snack (indicate name/kcal Glucerna BID /protein ) Provides kCal: 440 Provides Protein (gm) 20 Goal #1 Meet at least 75% of protein and energy needs via PO and ONS intakes Anticipated Discharge Needs: Consistent CHO Follow-Up By: 01/26/21 Additional Comments FU for intakes and ONS tolerance
[2021-01-26] MEDS: HEPARIN 5,000 UNIT/1 ML VIAL SUB-Q SCH ×2 (14:17→22:16)
[2021-01-26] MEDS: VANCOMYCIN 1,250 MG in SODIUM CHLORIDE 0.9% 250ML 250 ML IV SCH (14:17)
--- NOTE | 2021-01-26 14:25 | Progress Note ---
Assessment and Plan Patient alert, awake. Patient is on room air.O2 saturation 97%. No complaint of chest pain, shortness of breath or cough. Patient afebrile. Has leukocytosis. Blood pressure 156/81. Patient has abscess and cellulitis of right buttock. patient has history of diabetes and hypertension. No history of smoking, alcohol or drug abuse. and has two children. No known drug allergies. Chest xray done 01/22/21 reported no acute findings. Patient presently on antibiotics Vancomycin and ceftriaxone. Patient scheduled for surgical debridement tomorrow. - Patient Problems (1) Obesity (BMI 30.0-34.9) Current Visit: Yes Status: Acute Plan to address problem: Recommend to loose weight. Diet and exercise. (2) Sepsis Current Visit: Yes Status: Acute Plan to address problem: Patient is on vancomycin and ceftrioxone. (3) Cellulitis of right buttock Current Visit: Yes Status: Acute Plan to address problem: Patient is on vancomycin and vancomycin. (4) DKA (diabetic ketoacidoses) Current Visit: Yes Status: Acute Qualifiers: Diabetes mellitus type: type 1 Plan to address problem: Management as per primary care. (5) Hypertension Current Visit: Yes Status: Acute Plan to address problem: Management as per primary care. Subjective Date of service: 01/26/21 Interval history: Patient alert, awake. Patient is on room air.O2 saturation 97%. No complaint of chest pain, shortness of breath or cough. Patient afebrile. Has leukocytosis. Blood pressure 156/81. Patient has abscess and cellulitis of right buttock. patient has history of diabetes and hypertension. No history of smoking, alcohol or drug abuse. and has two children. No known drug allergies. Chest xray done 01/22/21 reported no acute findings. Patient presently on antibiotics Vancomycin and ceftriaxone. Patient scheduled for surgical debridement tomorrow. Objective Vital Signs - 12hr 01/26/21 01/26/21 01/26/21 03:41 07:39 11:30 Temperature 99.6 F 100.4 F H Pulse Rate 107 H 95 H 96 H Respiratory 14 20 Rate Blood Pressure 159/81 148/78 O2 Sat by Pulse 93 97 Oximetry Constitutional: no acute distress, alert Eyes: non-icteric ENT: oropharynx moist Neck: supple, no lymphadenopathy Ascultation: Bilateral: diminished breath sounds (Diminished breath sounds at the bases.) Cardiovascular: regular rate and rhythm Gastrointestinal: normoactive bowel sounds, soft, non-tender Integumentary: cellulitis, other (Abscess on right buttock.) Extremities: no cyanosis, no edema Neurologic: normal mental status, non-focal exam, pupils equal and round, CN II- XII normal Psychiatric: mood appropriate CBC and BMP: 01/27/21 02:01 01/27/21 02:01 ABG, PT/INR, D-dimer: PT/INR, D-dimer D-Dimer 297.08 ng/mlDDU (0-234) H 01/26/21 12:20 Abnormal lab findings: Abnormal Labs 01/22/21 01/22/21 01/22/21 04:23 04:39 04:39 WBC 18.7 H MCHC 35 H RDW 12.3 L Seg Neuts % (Manual) 89.0 H Lymphocytes % (Manual) 2.0 L Seg Neutrophils # Man 16.6 H Lymphocytes # (Manual) 0.4 L Monocytes # (Manual) D-Dimer VBG pH Sodium 129 L Potassium 3.4 L Chloride 94.0 L Carbon Dioxide 17 L BUN Creatinine 0.5 L Glucose 328 H POC Glucose 324 H Calcium Phosphorus Magnesium Alkaline Phosphatase 131 H Albumin 3.5 L 01/22/21 01/22/21 01/22/21 04:39 10:19 11:57 WBC MCHC RDW Seg Neuts % (Manual) Lymphocytes % (Manual) Seg Neutrophils # Man Lymphocytes # (Manual) Monocytes # (Manual) D-Dimer VBG pH 7.303 L Sodium 127 L Potassium 3.4 L Chloride 90.9 L Carbon Dioxide 13 L BUN Creatinine 0.5 L Glucose 306 H POC Glucose 283 H Calcium Phosphorus Magnesium Alkaline Phosphatase Albumin 01/22/21 01/22/21 01/22/21 14:17 15:56 16:56 WBC MCHC RDW Seg Neuts % (Manual) Lymphocytes % (Manual) Seg Neutrophils # Man Lymphocytes # (Manual) Monocytes # (Manual) D-Dimer VBG pH Sodium 132 L Potassium 3.3 L Chloride Carbon Dioxide 14 L BUN Creatinine 0.5 L Glucose 267 H POC Glucose 198 H 197 H Calcium Phosphorus Magnesium Alkaline Phosphatase Albumin 01/22/21 01/22/21 01/22/21 18:18 18:18 19:06 WBC MCHC RDW Seg Neuts % (Manual) Lymphocytes % (Manual) Seg Neutrophils # Man Lymphocytes # (Manual) Monocytes # (Manual) D-Dimer VBG pH Sodium 130 L Potassium 3.1 L Chloride Carbon Dioxide 15 L BUN Creatinine 0.4 L Glucose 241 H POC Glucose 226 H 203 H Calcium 8.3 L Phosphorus 1.30 L D Magnesium 1.60 L Alkaline Phosphatase Albumin 01/22/21 01/22/21 01/22/21 20:08 21:14 22:02 WBC MCHC RDW Seg Neuts % (Manual) Lymphocytes % (Manual) Seg Neutrophils # Man Lymphocytes # (Manual) Monocytes # (Manual) D-Dimer VBG pH Sodium Potassium Chloride Carbon Dioxide BUN Creatinine Glucose POC Glucose 233 H 202 H 181 H Calcium Phosphorus Magnesium Alkaline Phosphatase Albumin 01/22/21 01/22/21 01/22/21 22:26 23:07 23:56 WBC MCHC RDW Seg Neuts % (Manual) Lymphocytes % (Manual) Seg Neutrophils # Man Lymphocytes # (Manual) Monocytes # (Manual) D-Dimer VBG pH Sodium 130 L Potassium 2.6 L* Chloride Carbon Dioxide 20 L BUN Creatinine 0.4 L Glucose 185 H POC Glucose 160 H 159 H Calcium 8.1 L Phosphorus Magnesium Alkaline Phosphatase Albumin 01/23/21 01/23/21 01/23/21 01:06 02:11 02:52 WBC MCHC RDW Seg Neuts % (Manual) Lymphocytes % (Manual) Seg Neutrophils # Man Lymphocytes # (Manual) Monocytes # (Manual) D-Dimer VBG pH Sodium Potassium Chloride Carbon Dioxide BUN Creatinine Glucose POC Glucose 162 H 182 H 167 H Calcium Phosphorus Magnesium Alkaline Phosphatase Albumin 01/23/21 01/23/21 01/23/21 04:01 04:17 04:17 WBC 20.7 H MCHC 35 H RDW 12.1 L Seg Neuts % (Manual) 88.5 H Lymphocytes % (Manual) 1.0 L Seg Neutrophils # Man 18.3 H Lymphocytes # (Manual) 0.2 L Monocytes # (Manual) 1.0 H D-Dimer VBG pH Sodium 129 L Potassium 3.3 L D Chloride Carbon Dioxide 19 L BUN 6 L Creatinine 0.4 L Glucose 189 H POC Glucose 195 H Calcium Phosphorus Magnesium Alkaline Phosphatase Albumin 01/23/21 01/23/21 01/23/21 05:04 06:08 06:47 WBC MCHC RDW Seg Neuts % (Manual) Lymphocytes % (Manual) Seg Neutrophils # Man Lymphocytes # (Manual) Monocytes # (Manual) D-Dimer VBG pH Sodium Potassium Chloride Carbon Dioxide BUN Creatinine Glucose POC Glucose 158 H 154 H 140 H Calcium Phosphorus Magnesium Alkaline Phosphatase Albumin 01/23/21 01/23/21 01/23/21 08:09 08:24 09:18 WBC MCHC RDW Seg Neuts % (Manual) Lymphocytes % (Manual) Seg Neutrophils # Man Lymphocytes # (Manual) Monocytes # (Manual) D-Dimer VBG pH Sodium 124 L Potassium Chloride 97.6 L Carbon Dioxide 17 L BUN 6 L Creatinine 0.4 L Glucose 122 H POC Glucose 124 H 133 H Calcium 7.9 L Phosphorus Magnesium Alkaline Phosphatase Albumin 01/23/21 01/23/21 01/23/21 11:24 17:08 18:43 WBC MCHC RDW Seg Neuts % (Manual) Lymphocytes % (Manual) Seg Neutrophils # Man Lymphocytes # (Manual) Monocytes # (Manual) D-Dimer VBG pH Sodium 126 L Potassium Chloride 95.4 L Carbon Dioxide 18 L BUN 5 L Creatinine 0.4 L Glucose 212 H POC Glucose 240 H 220 H Calcium Phosphorus Magnesium Alkaline Phosphatase Albumin 01/23/21 01/24/21 01/24/21 21:32 04:50 07:30 WBC MCHC RDW Seg Neuts % (Manual) Lymphocytes % (Manual) Seg Neutrophils # Man Lymphocytes # (Manual) Monocytes # (Manual) D-Dimer VBG pH Sodium Potassium Chloride Carbon Dioxide BUN Creatinine Glucose POC Glucose 198 H 262 H 255 H Calcium Phosphorus Magnesium Alkaline Phosphatase Albumin 01/24/21 01/24/21 01/24/21 11:30 11:33 16:06 WBC 20.1 H MCHC 35 H RDW 12.6 L Seg Neuts % (Manual) Lymphocytes % (Manual) 6.0 L Seg Neutrophils # Man 18.5 H Lymphocytes # (Manual) Monocytes # (Manual) D-Dimer VBG pH Sodium Potassium Chloride Carbon Dioxide BUN Creatinine Glucose POC Glucose 293 H 230 H Calcium Phosphorus Magnesium Alkaline Phosphatase Albumin 01/24/21 01/25/21 01/25/21 20:47 05:11 05:11 WBC 17.3 H MCHC 36 H RDW 12.4 L Seg Neuts % (Manual) Lymphocytes % (Manual) Seg Neutrophils # Man Lymphocytes # (Manual) Monocytes # (Manual) D-Dimer VBG pH Sodium 130 L Potassium 3.2 L Chloride 93.7 L Carbon Dioxide BUN 4 L Creatinine 0.4 L Glucose 257 H POC Glucose 333 H Calcium 7.9 L Phosphorus Magnesium Alkaline Phosphatase Albumin 01/25/21 01/25/21 01/25/21 07:31 11:05 16:03 WBC MCHC RDW Seg Neuts % (Manual) Lymphocytes % (Manual) Seg Neutrophils # Man Lymphocytes # (Manual) Monocytes # (Manual) D-Dimer VBG pH Sodium Potassium Chloride Carbon Dioxide BUN Creatinine Glucose POC Glucose 264 H 209 H 149 H Calcium Phosphorus Magnesium Alkaline Phosphatase Albumin 01/25/21 01/26/21 01/26/21 20:17 07:41 08:16 WBC MCHC RDW Seg Neuts % (Manual) Lymphocytes % (Manual) Seg Neutrophils # Man Lymphocytes # (Manual) Monocytes # (Manual) D-Dimer 375.53 H VBG pH Sodium Potassium Chloride Carbon Dioxide BUN Creatinine Glucose POC Glucose 263 H 166 H Calcium Phosphorus Magnesium Alkaline Phosphatase Albumin 01/26/21 12:20 WBC MCHC RDW Seg Neuts % (Manual) Lymphocytes % (Manual) Seg Neutrophils # Man Lymphocytes # (Manual) Monocytes # (Manual) D-Dimer 297.08 H VBG pH Sodium Potassium Chloride Carbon Dioxide BUN Creatinine Glucose POC Glucose Calcium Phosphorus Magnesium Alkaline Phosphatase Albumin
--- NOTE | 2021-01-26 15:12 | Cat Scan Report ---
CTA CHEST WITH CONTRAST INDICATION / CLINICAL INFORMATION: shortness of breath. TECHNIQUE: Axial CT images were obtained through the chest after injection of 100 cc Omni 350 IV cont rast. 3 plane MIP and/or 3D reconstructions were produced. All CT scans at this location are performe d using CT dose reduction for ALARA by means of automated exposure control. COMPARISON: Chest radiograph 01/22/2021 FINDINGS: PULMONARY ARTERIES: No filling defect to suggest pulmonary thromboembolism. THORACIC AORTA: No significant abnormality. HEART: Upper limits normal size cardiac lead. CORONARY ARTERY CALCIFICATION: None. MEDIASTINUM / ABBE: No significant abnormality. PLEURA: Small bilateral pleural effusions. No pneumothorax. LUNGS: Mild bilateral lower lobe atelectasis. ADDITIONAL FINDINGS: None. UPPER ABDOMEN: No acute findings. SKELETAL STRUCTURES: No significant osseous abnormality. IMPRESSION: 1. No CT evidence for pulmonary embolism. 2. Small bilateral pleural effusions with associated atelectasis. Signer Name: Stevie Toribio MD Signed: 01/26/2021 3:07 PM Workstation Name: [id number]
[2021-01-26] MEDS: INSULIN GLARGINE 100 UNITS/ML SUB-Q SCH (22:18)
[2021-01-27] MEDS: HYDROmorphone 1 MG/1 ML INJ IV PRN ×6 (00:06→20:05)
[2021-01-27] MEDS: VANCOMYCIN 1,250 MG in SODIUM CHLORIDE 0.9% 250ML 250 ML IV SCH ×3 (00:08→22:11)
[2021-01-27 02:15] LABS: Hematocrit 36.2 % (30.3-42.9); Hemoglobin 12.7 gm/dl (10.1-14.3); Mean Corpuscular HGB Conc 35 % (30-34); Mean Corpuscular Volume 90 fl (79-97); Platelet Count 340 K/mm3 (140-440); Red Blood Count 4.01 M/mm3 (3.65-5.03); Red Cell Distribution Width 12.6 % (13.2-15.2)
[2021-01-27 02:39] LABS: Blood Urea Nitrogen 4 mg/dL (7-17); Calcium 8.4 mg/dL (8.4-10.2); Hemolysis Index 2
[2021-01-27 02:51] LABS: BUN/Creatinine Ratio 8
[2021-01-27] MEDS: HEPARIN 5,000 UNIT/1 ML VIAL SUB-Q SCH ×3 (05:02→22:10)
[2021-01-27] MEDS ORDERED: BUPIVACAINE/PF (0.5%) 5 MG/1 ML 30 ML VIAL INFILTRATI ONE ×2 (07:03→08:23)
[2021-01-27] MEDS ORDERED: LIDOCAINE (1%) 10 MG/1 ML VIAL 20 ML MDV ONE (07:03)
[2021-01-27] MEDS ORDERED: SUCCINYLCHOLINE CHLORIDE 200 MG/10 ML INJ MDV ONE (07:19)
[2021-01-27] MEDS ORDERED: LIDOCAINE MPF (2%) 20 MG/1 ML VIAL 5 ML ONE (07:19)
[2021-01-27] MEDS ORDERED: fentaNYL 100 MCG/2 ML INJ ONE ×2 (07:20→08:23)
[2021-01-27] MEDS ORDERED: propofoL 200 MG/20 ML VIAL IV ONE (07:20)
--- NOTE | 2021-01-27 07:41 | Anesthesia Day of Surgery ---
Anesthesia Day of Surgery - Day of Surgery Patient Examined: Yes Patient H&P Reviewed: Yes Patient is NPO: Yes
[2021-01-27] MEDS ORDERED: ONDANSETRON 4 MG/2 ML INJ IV PRN (08:00)
[2021-01-27] MEDS ORDERED: HYDROmorphone 1 MG/1 ML INJ IV PRN (08:00)
[2021-01-27] MEDS ORDERED: VANCOMYCIN 1,250 MG in SODIUM CHLORIDE 0.9% 250ML 250 ML IV SCH (08:00)
[2021-01-27] MEDS: INSULIN LISPRO 100 UNIT/ML SUB-Q SCH ×4 (08:15→22:30)
[2021-01-27] MEDS ORDERED: LIDOCAINE (1%) 10 MG/1 ML VIAL 20 ML MDV INFILTRATI ONE (08:23)
[2021-01-27] MEDS ORDERED: SODIUM HYPOCHLORITE, DAKIN'S FULL STRENGTH (0.5%) 473 ML TOPICAL SOLN ONE (08:37)
[2021-01-27] MEDS ORDERED: ONDANSETRON 4 MG/2 ML INJ ONE (08:45)
[2021-01-27] MEDS ORDERED: SODIUM CHLORIDE 0.9% 1000 ML 1,000 ML ONE (09:31)
[2021-01-27] MEDS: LISINOPRIL 20 MG TAB PO SCH (09:45)
--- NOTE | 2021-01-27 09:56 | Operative Report ---
Operative Report Operative Report: DATE: 01/27/2021 SURGEON: FELISHA LILYL MD PROCEDURE: EXCISIONAL DEBRIDEMENT AND DRAINAGE OF RIGHT BUTTOCK WOUND ANESTHESIA: GETA WITH LOCAL AT WOUND SITE 50/50 MARCAINE/LIDOCAINE MIXTURE PRE-OP DX: RIGHT BUTTOCK WOUND POST-OP DX: RIGHT BUTTOCK WOUND WITH ABSCESS INDICATION: 30 YEAR OLD TYPE 1 DIABETIC PRESENTED TO ED IN [place] WITH RIGHT BUTTOCK WOUND THAT SHE SAYS STARTED ABOUT 3 DAYS PRIOR TO ADMISSION. SHE HAD A CT SCAN THAT SHOWED SOME INFLAMMATION IN THE RIGHT INFERIOR BUTTOCK BUT NO AIR POCKETS OR FLUID COLLECTIONS. AFTER DKA WAS RESOLVED, SHE WAS CONSENTED FOR DEBRIDEMENT AND DRAINAGE OF RIGHT BUTTOCK. DETAILS OF PROCEDURE: PT WAS BROUGHT INTO OR SUITE AND LAID IN SUPINE POSITION. BILATERAL SCD WERE PLACED, GENERAL ANESTHESIA WAS INDUCED VIA SUCCESSFUL ENDOTRACHEAL INTUBATION. PT WAS PLACED IN THE PRONE POSITION WITH ALL PRESSURE POINTS PADDED. HER BUTTOCKS WAS PREPPED AND DRAPED IN STERILE FASHION. A TIME OUT WAS PERFORMED. THERE WAS NOTED TO BE A 6X3 CM AREA OF NECROTIC SKIN AT THE INFERIOR APEX OF THE RIGHT BUTTOCK, WELL A AN AREA OF FLUCTUANCE SUPERIOR TO THIS AREA IN THE MID BUTTOCK AREA. AN 11 BLADE SCALPEL WAS USED TO INCISE THE FLUCTUANCE AND THERE WAS AN IMMEDIATE ANDINO OF PURULENT FLUID. THIS WAS CULTURED AND SENT TO PATHOLOGY. THE AREA OF NECROTIC SKIN WAS EXCISED FULL THICKNESS TO AN UNDERLYING ABSCESS CAVITY WHERE HEALTHY MUSCLE AND FATTY TISSUE WERE VISUALIZED. THERE WAS FINGER DISSECTION TO BREAK UP ALL THE ABSCESS CAVITIES AND TRACKS. COPIOUS PURULENT FLUID WAS ASPIRATED. THERE WAS NO CONNECTION BETWEEN THE ABSCESS CAVITY AND THE RECTUM APPRECIATED. A PULSE LAVAGE DEVICE WAS USED TO IRRIGATE THE AREA WITH SALINE. HEMOSTASIS WAS ACHIEVED WITH ELECT ROCAUTERY. THE WOUND WAS PACKED WITH DAKINS SOLUTION WET GAUZE, FOLLOWED BY STERILE DRESSING. PROCEDURE WAS TERMINATED. PT WAS RETURNED TO THE SUPINE POSITION, AWOKEN, EXTUBATED AND TAKEN TO RECOVERY IN STABLE CONDITION. SPECIMEN: WOUND CULTURE AND EXCISED WOUND TISSUE EBL: 100ML COMPLICATION: NONE IMMEDIATE
[2021-01-27] MEDS: amLODIPine 10 MG TAB PO SCH (10:21)
[2021-01-27] MEDS: cefTRIAXone/NS 2 GM/100 ML 2 GM/100 ML BAG IV SCH (11:19)
[2021-01-27] MEDS: POTASSIUM CHLORIDE ER 20 MEQ TAB PO SCH (11:33)
--- NOTE | 2021-01-27 11:52 | Progress Note ---
Assessment and Plan Cultures: 01/22/2021 blood culture: no growth 01/26/2021 OR deep culture: in process A/P: 30-year-old female with diabetes mellitus admitted to the hospital with pain in her right buttock and DKA: #Sepsis, secondary to right buttock cellulitis and abscess: s/p I&D on 01/26/2021 #Diabetes mellitus, uncontrolled, was admitted with diabetic ketoacidosis Recs: -continue Ceftriaxone, continue IV Vancomycin with trough monitoring -f/u OR cultures to help guide PO abx therapy for discharge -maintain glycemic control -wound care Maverick Pierce MD, FACP [facility] O: [phone] F: [phone] Subjective Date of service: 01/27/21 Interval history: Pain better, no fever. Went to OR yesterday. Objective - Exam Narrative Exam: Physical Exam: Constitutional: Alert, cooperative. No acute distress Head, Ears, Nose: Normocephalic, atraumatic. External ears, nose normal Eyes: Conjunctivae/corneas clear. No icterus. No ptosis. Neck: Supple, no meningeal signs Cardiovascular: S1, S2 normal. Respiratory: Good air entry, clear to auscultation bilaterally GI: Soft, non-tender; bowel sounds normal. No peritoneal signs Musculoskeletal: No pedal edema, no cyanosis. Skin: Right buttock dressing + Hem/Lymphatic: No palpable cervical or supraclavicular nodes. No lymphangitis Psych: Mood ok. Affect normal Neurological: Awake, alert, oriented. No gross abnormality - Constitutional Vitals: Vital Signs Temp Pulse Resp BP Pulse Ox 98.0 F 92 H 15 157/80 100 01/27/21 11:15 01/27/21 11:15 01/27/21 11:15 01/27/21 11:15 01/27/21 11:15 Temperature -Last 24 Hours Temperature 98.0 F Temperature 98 F Temperature 98.0 F Temperature 97.5 F Temperature 98.5 F Temperature 98.3 F Temperature 99.3 F Temperature 98.0 F - Labs CBC & Chem 7: 01/27/21 02:01 01/27/21 02:01 Labs: Abnormal lab results 01/26/21 01/26/21 01/26/21 Range/Units 11:41 12:20 16:07 WBC (4.5-11.0) K/mm3 MCHC (30-34) % RDW (13.2-15.2) % D-Dimer 297.08 H (0-234) ng/mlDDU Sodium (137-145) mmol/L Potassium (3.6-5.0) mmol/L Chloride (98-107) mmol/L BUN (7-17) mg/dL Creatinine (0.6-1.2) mg/dL Glucose (65-100) mg/dL POC Glucose 121 H 167 H (70-105) mg/dL 01/26/21 01/27/21 01/27/21 Range/Units 20:25 02:01 02:01 WBC 14.9 H (4.5-11.0) K/mm3 MCHC 35 H (30-34) % RDW 12.6 L (13.2-15.2) % D-Dimer (0-234) ng/mlDDU Sodium 132 L (137-145) mmol/L Potassium 3.1 L (3.6-5.0) mmol/L Chloride 90.4 L (98-107) mmol/L BUN 4 L (7-17) mg/dL Creatinine 0.5 L (0.6-1.2) mg/dL Glucose 284 H (65-100) mg/dL POC Glucose 273 H (70-105) mg/dL 01/27/21 01/27/21 01/27/21 Range/Units 07:40 09:36 11:19 WBC (4.5-11.0) K/mm3 MCHC (30-34) % RDW (13.2-15.2) % D-Dimer (0-234) ng/mlDDU Sodium (137-145) mmol/L Potassium (3.6-5.0) mmol/L Chloride (98-107) mmol/L BUN (7-17) mg/dL Creatinine (0.6-1.2) mg/dL Glucose (65-100) mg/dL POC Glucose 159 H 160 H 192 H (70-105) mg/dL
--- NOTE | 2021-01-27 13:22 | Progress Note ---
Assessment and Plan Assessment and plan: PROCEDURE: EXCISIONAL DEBRIDEMENT AND DRAINAGE OF RIGHT BUTTOCK WOUND 30 YO Female with DM, Obesity presents to ED for evaluation. Pt reports " my blood sugar is high, and my butt is sore". Patient states that she has experienced redness, swelling, tenderness in her right buttock over the last 3 days with persistently worsening symptoms over the same timeframe. Patient also acknowledges high blood glucose levels. Patient transported to [facility] via private vehicle for further care and evaluation of the aforementioned symptoms. The patient was seen and evaluated in the emergency department. All lab and imaging studies reviewed. The patient was found to have diabetic ketoacidosis complicated by metabolic acidosis, right buttock cellulitis complicated by sepsis. Patient admitted to ICU and initiated on DKA as well as sepsis protocols respectively. Patient treated with IV fluid resuscitation therapy as well. Patient denies fever, chills, chest pain, palpitation, productive cough, recent ill contacts, or known exposure to COVID-19. No prior admission for review. No medication listed at time of admission for reconciliation. Critical care consult placed in ED. 01/23: Patient seen and examined, no fever, no new complaints, wound dressing in place,. Anion Gap closed. She states she uses 70 lantus at night along with sliding scale with meals, Will transition to sq insulin and start lantus at 50. Will re-evaluate wound, Awaiting CT pelvis ordered yesterday urgently- I Understand will be done today. this will help evaluate for abscess that may require I/D Wound care consult Continue abx. Hypokalemiareplace Anticipate discharge in a.m. if remains stable and does not require any debridement 01/24: We will continue to monitor ID input noted. Continue antibiotics CT scan reviewed no drainable fluid noted but inflammation noted. Patient reported that the site bled through the night. Dressing being done at this time. Mild pseudohyponatremia noted will monitor closely while addressing blood sugar is still elevated. Anticipate discharge in next 24 hours this has been discussed with the patient and she verbalized understanding. We will discontinue IV fluid as patient is tolerating food. She also has some pain will adjust her pain medication for better control. 01/25: Continue supportive care, obtain Surgery evaluation as ID believes that this patient may eventually need drainage if organized. Will increase insulin coverage. Replace K. Sodium improving. 01/26: Noted increased Tachycardia, no respiratory distress but states that she is anxious. Will evaluate and rule out Pulmonary embolisim as patient has elevated D.dimer. Patient is for OR today for debridement of narcotizing cellulitis and follow cultures. We will also continue adjusting insulin for better blood sugar control. 01/27 Patient with sepsis due to right buttock wound with abscess. She had excisional debridement and drainage of right buttock wound and abscess done t [place] by Dr. Carlos. Patient has hypokalemia, given Potassium (1) Sepsis Current Visit: Yes Status: Acute Plan to address problem: Sepsis protocol: CBC, CMP, IV antibiotic therapy, IV fluid resuscitation th erapy, serial lactic acid level, blood culture, maintain mean arterial pressure greater than or equal to 65. (2) DKA (diabetic ketoacidoses) Current Visit: Yes Status: Acute Qualifiers: Diabetes mellitus type: type 1 Plan to address problem: She was treated with DKA protocol (3) Metabolic acidosis Current Visit: Yes Status: Acute Plan to address problem: Resolved (4) Obesity (BMI 30.0-34.9) Current Visit: Yes Status: Acute Plan to address problem: Balanced diet, increase physical activity at discharge (5) Cellulitis of right buttock Current Visit: Yes Status: Acute Plan to address problem: CBC, BMP, IV antibiotic therapy, supportive care. CT scan pelvis to evaluate for necrotizing soft tissue infection (6) pseudohyponatremia (7) Hypokalemia (8) elevated D-dimer (9) DVT prophylaxis Current Visit: Yes Status: Acute Plan to address problem: SCD to bilateral lower extremities while in bed History Interval history: Less pain right buttock Fever of 100.4 yesterday Hospitalist Physical - Physical exam Narrative exam: - Physical exam Narrative exam: General appearance: Present: No distress, obese - EENT Eyes: Present: PERRL ENT: hearing intact, clear oral mucosa - Neck Neck: Present: supple, normal ROM - Respiratory Respiratory effort: normal Respiratory: bilateral: CTA - Cardiovascular Heart Sounds: Present: S1 & S2.tachycardia Absent: rub, click - Extremities Extremities: pulses symmetrical, No edema - Abdominal General gastrointestinal: Present: soft, non-tender, non-distended, normal bowel sounds Female genitourinary: Present: normal - Integumentary Integumentary: Present: Dressing over right buttock - Musculoskeletal Musculoskeletal: gait normal, strength equal bilaterally - Psychiatric Psychiatric: appropriate mood/affect, intact judgment & insight - Neurologic Neurologic: CNII-XII intact, moves all extremities - Constitutional Vitals: Temp Pulse Resp BP Pulse Ox 98.0 F 92 H 15 157/80 100 01/27/21 11:15 01/27/21 11:15 01/27/21 11:15 01/27/21 11:15 01/27/21 11:15 Results - Labs CBC & Chem 7: 01/27/21 02:01 01/27/21 02:01 Labs: Laboratory Last Values WBC 14.9 K/mm3 (4.5-11.0) H 01/27/21 02:01 RBC 4.01 M/mm3 (3.65-5.03) 01/27/21 02:01 Hgb 12.7 gm/dl (10.1-14.3) 01/27/21 02:01 Hct 36.2 % (30.3-42.9) 01/27/21 02:01 MCV 90 fl (79-97) 01/27/21 02:01 MCH 32 pg (28-32) 01/27/21 02:01 MCHC 35 % (30-34) H 01/27/21 02:01 RDW 12.6 % (13.2-15.2) L 01/27/21 02:01 Plt Count 340 K/mm3 (140-440) 01/27/21 02:01 Add Manual Diff Complete 01/24/21 11:30 Total Counted 100 01/24/21 11:30 Seg Neuts % (Manual) 88.5 % (40.0-70.0) H 01/23/21 04:17 Band Neutrophils % 5.0 % 01/23/21 04:17 Lymphocytes % (Manual) 6.0 % (13.4-35.0) L 01/24/21 11:30 Monocytes % (Manual) 1.0 % (0.0-7.3) 01/24/21 11:30 Eosinophils % (Manual) 1.0 % (0.0-4.3) 01/24/21 11:30 Nucleated RBC % Not Reportable 01/24/21 11:30 Seg Neutrophils # Man 18.5 K/mm3 (1.8-7.7) H 01/24/21 11:30 Band Neutrophils # 0.0 K/mm3 01/24/21 11:30 Lymphocytes # (Manual) 1.2 K/mm3 (1.2-5.4) 01/24/21 11:30 Abs React Lymphs (Man) 0.0 K/mm3 01/24/21 11:30 Monocytes # (Manual) 0.2 K/mm3 (0.0-0.8) 01/24/21 11:30 Eosinophils # (Manual) 0.2 K/mm3 (0.0-0.4) 01/24/21 11:30 Basophils # (Manual) 0.0 K/mm3 (0.0-0.1) 01/24/21 11:30 Metamyelocytes # 0.0 K/mm3 01/24/21 11:30 Myelocytes # 0.0 K/mm3 01/24/21 11:30 Promyelocytes # 0.0 K/mm3 01/24/21 11:30 Blast Cells # 0.0 K/mm3 01/24/21 11:30 WBC Morphology Not Reportable 01/24/21 11:30 Hypersegmented Neuts Not Reportable 01/24/21 11:30 Hyposegmented Neuts Not Reportable 01/24/21 11:30 Hypogranular Neuts Not Reportable 01/24/21 11:30 Smudge Cells Not Reportable 01/24/21 11:30 Toxic Granulation Not Reportable 01/24/21 11:30 Toxic Vacuolation Not Reportable 01/24/21 11:30 Dohle Bodies Not Reportable 01/24/21 11:30 Pelger-Huet Anomaly Not Reportable 01/24/21 11:30 Ozzy Rods Not Reportable 01/24/21 11:30 Platelet Estimate Consistent w auto 01/24/21 11:30 Clumped Platelets Not Reportable 01/24/21 11:30 Plt Clumps, EDTA Not Reportable 01/24/21 11:30 Large Platelets Not Reportable 01/24/21 11:30 Giant Platelets Not Reportable 01/24/21 11:30 Platelet Satelliting Not Reportable 01/24/21 11:30 Plt Morphology Comment Not Reportable 01/24/21 11:30 RBC Morphology Normal 01/24/21 11:30 Dimorphic RBCs Not Reportable 01/24/21 11:30 Polychromasia Not Reportable 01/24/21 11:30 Hypochromasia Not Reportable 01/24/21 11:30 Poikilocytosis Not Reportable 01/24/21 11:30 Anisocytosis Not Reportable 01/24/21 11:30 Microcytosis Not Reportable 01/24/21 11:30 Macrocytosis Not Reportable 01/24/21 11:30 Spherocytes Not Reportable 01/24/21 11:30 Pappenheimer Bodies Not Reportable 01/24/21 11:30 Sickle Cells Not Reportable 01/24/21 11:30 Target Cells Not Reportable 01/24/21 11:30 Tear Drop Cells Not Reportable 01/24/21 11:30 Ovalocytes Not Reportable 01/24/21 11:30 Helmet Cells Not Reportable 01/24/21 11:30 [place] Bodies Not Reportable 01/24/21 11:30 Nebo Rings Not Reportable 01/24/21 11:30 Su Cells Not Reportable 01/24/21 11:30 Bite Cells Not Reportable 01/24/21 11:30 Crenated Cell Not Reportable 01/24/21 11:30 Elliptocytes Not Reportable 01/24/21 11:30 Acanthocytes (Spur) Not Reportable 01/24/21 11:30 Rouleaux Not Reportable 01/24/21 11:30 Hemoglobin C Crystals Not Reportable 01/24/21 11:30 Schistocytes Not Reportable 01/24/21 11:30 Malaria parasites Not Reportable 01/24/21 11:30 Kal Bodies Not Reportable 01/24/21 11:30 Hem Pathologist Commnt No 01/24/21 11:30 D-Dimer 297.08 ng/mlDDU (0-234) H 01/26/21 12:20 VBG pH 7.303 (7.320-7.420) L 01/22/21 04:39 Sodium 132 mmol/L (137-145) L 01/27/21 02:01 Potassium 3.1 mmol/L (3.6-5.0) L 01/27/21 02:01 Chloride 90.4 mmol/L (98-107) L 01/27/21 02:01 Carbon Dioxide 28 mmol/L (22-30) 01/27/21 02:01 Anion Gap 17 mmol/L 01/27/21 02:01 BUN 4 mg/dL (7-17) L 01/27/21 02:01 Creatinine 0.5 mg/dL (0.6-1.2) L 01/27/21 02:01 Estimated GFR > 60 ml/min 01/27/21 02:01 BUN/Creatinine Ratio 8 % 01/27/21 02:01 Glucose 284 mg/dL (65-100) H 01/27/21 02:01 POC Glucose 192 mg/dL (70-105) H 01/27/21 11:19 Lactic Acid 1.10 mmol/L (0.7-2.0) 01/22/21 22:26 Calcium 8.4 mg/dL (8.4-10.2) 01/27/21 02:01 Phosphorus 1.30 mg/dL (2.5-4.5) L D 01/22/21 18:18 Magnesium 1.60 mg/dL (1.7-2.3) L 01/22/21 18:18 Total Bilirubin 0.50 mg/dL (0.1-1.2) 01/22/21 04:39 AST 9 units/L (5-40) 01/22/21 04:39 ALT 8 units/L (7-56) 01/22/21 04:39 Alkaline Phosphatase 131 units/L (35-129) H 01/22/21 04:39 Total Protein 7.3 g/dL (6.3-8.2) 01/22/21 04:39 Albumin 3.5 g/dL (3.9-5) L 01/22/21 04:39 Albumin/Globulin Ratio 0.9 % 01/22/21 04:39 HCG, Qual Negative (Negative) 01/22/21 04:39 Urine Color Yellow (Yellow) 01/22/21 06:08 Urine Turbidity Clear (Clear) 01/22/21 06:08 Urine pH 6.0 (5.0-7.0) 01/22/21 06:08 Ur Specific [place] 1.024 (1.003-1.030) 01/22/21 06:08 Urine Protein 30 mg/dl mg/dL (Negative) 01/22/21 06:08 Urine Glucose (UA) >=500 mg/dL (Negative) 01/22/21 06:08 Urine Ketones 80 mg/dL (Negative) 01/22/21 06:08 Urine Blood Neg (Negative) 01/22/21 06:08 Urine Nitrite Neg (Negative) 01/22/21 06:08 Urine Bilirubin Neg (Negative) 01/22/21 06:08 Urine Urobilinogen 2.0 mg/dL (<2.0) 01/22/21 06:08 Ur Leukocyte Esterase Neg (Negative) 01/22/21 06:08 Urine WBC (Auto) 3.0 /HPF (0.0-6.0) 01/22/21 06:08 Urine RBC (Auto) 2.0 /HPF (0.0-6.0) 01/22/21 06:08 U Epithel Cells (Auto) 2.0 /HPF (0-13.0) 01/22/21 06:08 Urine Mucus Few /HPF 01/22/21 06:08 Vancomycin Trough 5.5 ug/mL (5.0-20.0) 01/26/21 23:11 Microbiology: Microbiology 01/22/21 10:25 Peripheral/Venous Blood Culture - Final NO GROWTH AFTER 5 DAYS 01/22/21 10:19 Peripheral/Venous Blood Culture - Final NO GROWTH AFTER 5 DAYS Trammell/IV: Voiding Method Toilet Active Medications - Current Medications Current Medications: Generic Name Dose Route Start Last Admin Trade Name Freq PRN Reason Stop Dose Admin Acetaminophen 650 mg 01/22/21 16:28 01/25/21 04:16 Acetaminophen 325 Mg Tab PO 650 mg Q6H PRN Administration Pain, Mild (1-3) Albuterol 2.5 mg 01/22/21 13:04 Albuterol 2.5 Mg/3 Ml Nebu IH Q3HRT PRN Shortness Of Breath Amlodipine Besylate 10 mg 01/26/21 10:00 01/27/21 10:21 Amlodipine 10 Mg Tab PO 10 mg DAILY LSETER Administration Dextrose 50 ml 01/23/21 08:27 Dextrose 50% In Water (25gm) 50 Ml Syringe IV Q30MIN PRN Hypoglycemia Protocol Heparin Sodium (Porcine) 5,000 unit 01/26/21 14:00 01/27/21 05:02 Heparin 5,000 Unit/1 Ml Vial SUB-Q 5,000 unit Q8HR LESTER Administration Hydralazine HCl 10 mg 01/25/21 16:35 01/25/21 19:52 Hydralazine 20 Mg/1 Ml Inj IV 10 mg Q6HR PRN Administration Hypertension Hydromorphone HCl 0.5 mg 01/25/21 09:05 01/27/21 05:07 Hydromorphone 1 Mg/1 Ml Inj IV 0.5 mg Q4H PRN Administration Pain, Moderate (4-6) Ceftriaxone Sodium 2 gm in 100 mls @ 200 mls/hr 01/23/21 11:00 01/27/21 11:19 Rocephin/Ns 2 Gm/100 Ml IV 200 mls/hr Q24HR LESTER Administration Protocol Vancomycin HCl 1,250 mg/ 275 mls @ 166.667 mls/hr 01/27/21 12:00 01/27/21 11:53 Sodium Chloride IV 166.667 mls/hr Q8H LESTER Administration Insulin Glargine 70 units 01/25/21 22:00 01/26/21 22:18 Insulin Glargine 100 Units/Ml SUB-Q 70 units QHS LESTER Administration Insulin Human Lispro 0 unit 01/23/21 11:30 01/27/21 11:20 Insulin Lispro 100 Unit/Ml SUB-Q 3 unit ACHS LESTER Administration Protocol Lisinopril 40 mg 01/26/21 10:00 01/27/21 09:45 Lisinopril 20 Mg Tab PO 40 mg QDAY LESTER Administration Potassium Chloride 40 meq 01/27/21 10:00 01/27/21 11:33 Potassium Chloride Er 20 Meq Tab PO 01/27/21 14:00 40 meq ONCE LESTER Administration Sodium Chloride 10 ml 01/22/21 22:00 01/27/21 11:20 Sodium Chloride 0.9% 10 Ml Flush Syringe IV 10 ml BID LESTER Administration Sodium Chloride 10 ml 01/22/21 13:04 01/27/21 05:09 Sodium Chloride 0.9% 10 Ml Flush Syringe IV 10 ml PRN PRN Administration LINE FLUSH Nutrition/Malnutrition Assess - Dietary Evaluation Nutrition/Malnutrition Findings: Nutrition Notes Start: 01/24/21 12 :20 Freq: Status: Active Protocol: Document 01/26/21 13:07 FROY (Rec: 01/26/21 13:11 FROY [id number]) Nutrition Notes Initial or Follow up Reassessment Current Diagnosis Diabetes,Sepsis Other Pertinent Diagnosis DKA Current Diet NPO Labs/Tests POC BG 166 Pertinent Medications Reviewed Height 5 ft 2 in Weight 85.1 kg [place] Body Weight (kg) 50.00 BMI 34.3 Weight change and time frame Wt change noted Weight Status Obese Subjective/Other Information FU for intakes. Pt reports eating 25-50% of most meals and drinking ONS inplace of one meal. Pt states stress and pain continue to make it hard for her to eat. Pt now NPO for procedure. Percent of energy/protein needs met: 62%/53% Burn Absent Trauma Absent GI Symptoms Nausea Current % PO Poor (25-49%) Minimum of two criteria No physical signs of malnutrition #2 Nutrition Diagnosis Increased nutrient needs ( specify in comment below) Diagnosis Progress(for reassessment Continues documentation) #1 Nutrition Diagnosis Inadequate oral intake As Evidenced by Signs and Symptoms pt meeting 62%/53% of calorie/ protein needs Diagnosis Progress(for reassessment Continues documentation) Is patient on ventilator? No Is Patient Ambulatory and/or Out of Bed No REE-([facility]-confined to bed) 1825.056 Kcal/Kg value to use for calculation 18 Approximate Energy Requirements Using 1532 kcal/Kg Calculation Used for Recommendations Kcal/kg Additional Notes Protein: (1.25-1.5 g/kg AdjBW: 64 kg) 81-96g Fluid: 1 ml/kcal Nutrition Intervention Change Diet Order: Continue Add Supplement/Snack (indicate name/kcal Glucerna TID when diet /protein ) advances Provides kCal: 660 Provides Protein (gm) 30 Goal #1 Meet at least 75% of protein and energy needs via PO and ONS intakes Anticipated Discharge Needs: Consistent CHO Follow-Up By: 01/28/21 Additional Comments FU for intakes and ONS tolerance
--- NOTE | 2021-01-27 14:34 | Progress Note ---
Assessment and Plan Sepsis DKA Hyponatremia Obesity Cellulitis of right buttock - continue wound care per RN/WCT - complete AB's per ID recommendations - prn supplemental oxygen to keep O2 sats > 90% - prn bronchodilators ( & LABA) with pulm hygiene per RT - continue to avoid nephrotoxins, renally dose all medications - continue mobility protocols to prevent pressure ulcers - prn analgesia per pain score - PT/OT as tolerated - continue accuchecks with glycemic control per SSI for target blood glucose < 180 mg/dL - tobacco abstinence strongly counseled at the bedside - home oxygen evaluation at discharge - GI & VTE prophylaxis - Flu & pneumovax per protocol - continue other care per attending / other consultants ... re-evaluate in am & prn Subjective Date of service: 01/27/21 Principal diagnosis: Sepsis; DKA; Hyponatremia; Obesity; Cellulitis of right buttock Interval history: Patient is seen today for: Sepsis; DKA; Hyponatremia; Obesity; Cellulitis of right buttock Seen and examined at bedside; 24hour events reviewed; nursing and respiratory care staff consulted; no adverse overnight events reported to me; resting peacefully in bed; s/p excisional drainage of right buttocks wound; feels better overall; remains on broad spectrum AB's Objective Vital Signs - 12hr 01/27/21 01/27/21 01/27/21 03:21 05:07 07:07 Temperature 98.5 F Pulse Rate 87 90 Pulse Rate [ From Monitor] Respiratory 14 18 Rate Blood Pressure 140/83 Blood Pressure [Right] O2 Sat by Pulse 95 Oximetry 01/27/21 01/27/21 01/27/21 07:15 09:11 09:15 Temperature 97.5 F L Pulse Rate 109 H 110 H Pulse Rate [ 87 From Monitor] Respiratory 17 16 14 Rate Blood Pressure 179/102 200/114 Blood Pressure [Right] O2 Sat by Pulse 98 100 100 Oximetry 01/27/21 01/27/21 01/27/21 09:20 09:25 09:30 Temperature Pulse Rate 100 H 109 H 93 H Pulse Rate [ From Monitor] Respiratory 12 13 12 Rate Blood Pressure 198/100 202/114 190/109 Blood Pressure [Right] O2 Sat by Pulse 100 100 99 Oximetry 01/27/21 01/27/21 01/27/21 09:35 09:40 09:45 Temperature Pulse Rate 94 H 95 H 97 H Pulse Rate [ From Monitor] Respiratory 14 13 14 Rate Blood Pressure 197/116 197/115 194/116 Blood Pressure [Right] O2 Sat by Pulse 100 100 100 Oximetry 01/27/21 01/27/21 01/27/21 09:50 09:55 10:00 Temperature Pulse Rate 96 H 96 H 94 H Pulse Rate [ From Monitor] Respiratory 16 14 14 Rate Blood Pressure 192/100 177/90 186/101 Blood Pressure [Right] O2 Sat by Pulse 100 100 100 Oximetry 01/27/21 01/27/21 01/27/21 10:05 10:10 10:15 Temperature 98.0 F Pulse Rate 93 H 93 H 94 H Pulse Rate [ From Monitor] Respiratory 15 14 14 Rate Blood Pressure 181/98 185/98 181/94 Blood Pressure [Right] O2 Sat by Pulse 100 100 100 Oximetry 01/27/21 01/27/21 01/27/21 10:20 10:21 10:25 Temperature Pulse Rate 90 90 90 Pulse Rate [ From Monitor] Respiratory 14 15 Rate Blood Pressure 159/86 156/86 165/89 Blood Pressure [Right] O2 Sat by Pulse 100 100 Oximetry 01/27/21 01/27/21 01/27/21 10:30 10:35 10:40 Temperature Pulse Rate 89 90 90 Pulse Rate [ From Monitor] Respiratory 17 14 19 Rate Blood Pressure 162/90 163/88 164/88 Blood Pressure [Right] O2 Sat by Pulse 100 100 100 Oximetry 01/27/21 01/27/21 01/27/21 10:45 10:50 10:55 Temperature Pulse Rate 92 H 92 H 92 H Pulse Rate [ From Monitor] Respiratory 20 14 15 Rate Blood Pressure 155/88 158/66 168/84 Blood Pressure [Right] O2 Sat by Pulse 100 100 100 Oximetry 01/27/21 01/27/21 01/27/21 11:15 14:15 14:16 Temperature 98.0 F 98.2 F Pulse Rate 92 H 102 H Pulse Rate [ From Monitor] Respiratory 15 17 17 Rate Blood Pressure 157/80 Blood Pressure 157/80 146/75 [Right] O2 Sat by Pulse 100 98 Oximetry Constitutional: no acute distress, alert Eyes: non-icteric ENT: oropharynx moist Neck: supple, no lymphadenopathy, no JVD Effort: normal Ascultation: Bilateral: clear Percussion: Bilateral: not dull Cardiovascular: regular rate and rhythm Gastrointestinal: normoactive bowel sounds, soft, non-tender, non-distended (protuberant) Integumentary: cellulitis, other (Abscess on right buttock.) Extremities: no cyanosis, no edema Neurologic: normal mental status, non-focal exam, pupils equal and round, CN II- XII normal Psychiatric: mood appropriate, affect normal CBC and BMP: 01/28/21 05:07 01/28/21 05:07 ABG, PT/INR, D-dimer: PT/INR, D-dimer D-Dimer 297.08 ng/mlDDU (0-234) H 01/26/21 12:20 Abnormal lab findings: Abnormal Labs 01/22/21 01/22/21 01/22/21 04:23 04:39 04:39 WBC 18.7 H MCHC 35 H RDW 12.3 L Seg Neuts % (Manual) 89.0 H Lymphocytes % (Manual) 2.0 L Seg Neutrophils # Man 16.6 H Lymphocytes # (Manual) 0.4 L Monocytes # (Manual) D-Dimer VBG pH Sodium 129 L Potassium 3.4 L Chloride 94.0 L Carbon Dioxide 17 L BUN Creatinine 0.5 L Glucose 328 H POC Glucose 324 H Calcium Phosphorus Magnesium Alkaline Phosphatase 131 H Albumin 3.5 L 01/22/21 01/22/21 01/22/21 04:39 10:19 11:57 WBC MCHC RDW Seg Neuts % (Manual) Lymphocytes % (Manual) Seg Neutrophils # Man Lymphocytes # (Manual) Monocytes # (Manual) D-Dimer VBG pH 7.303 L Sodium 127 L Potassium 3.4 L Chloride 90.9 L Carbon Dioxide 13 L BUN Creatinine 0.5 L Glucose 306 H POC Glucose 283 H Calcium Phosphorus Magnesium Alkaline Phosphatase Albumin 01/22/21 01/22/21 01/22/21 14:17 15:56 16:56 WBC MCHC RDW Seg Neuts % (Manual) Lymphocytes % (Manual) Seg Neutrophils # Man Lymphocytes # (Manual) Monocytes # (Manual) D-Dimer VBG pH Sodium 132 L Potassium 3.3 L Chloride Carbon Dioxide 14 L BUN Creatinine 0.5 L Glucose 267 H POC Glucose 198 H 197 H Calcium Phosphorus Magnesium Alkaline Phosphatase Albumin 01/22/21 01/22/21 01/22/21 18:18 18:18 19:06 WBC MCHC RDW Seg Neuts % (Manual) Lymphocytes % (Manual) Seg Neutrophils # Man Lymphocytes # (Manual) Monocytes # (Manual) D-Dimer VBG pH Sodium 130 L Potassium 3.1 L Chloride Carbon Dioxide 15 L BUN Creatinine 0.4 L Glucose 241 H POC Glucose 226 H 203 H Calcium 8.3 L Phosphorus 1.30 L D Magnesium 1.60 L Alkaline Phosphatase Albumin 01/22/21 01/22/21 01/22/21 20:08 21:14 22:02 WBC MCHC RDW Seg Neuts % (Manual) Lymphocytes % (Manual) Seg Neutrophils # Man Lymphocytes # (Manual) Monocytes # (Manual) D-Dimer VBG pH Sodium Potassium Chloride Carbon Dioxide BUN Creatinine Glucose POC Glucose 233 H 202 H 181 H Calcium Phosphorus Magnesium Alkaline Phosphatase Albumin 01/22/21 01/22/21 01/22/21 22:26 23:07 23:56 WBC MCHC RDW Seg Neuts % (Manual) Lymphocytes % (Manual) Seg Neutrophils # Man Lymphocytes # (Manual) Monocytes # (Manual) D-Dimer VBG pH Sodium 130 L Potassium 2.6 L* Chloride Carbon Dioxide 20 L BUN Creatinine 0.4 L Glucose 185 H POC Glucose 160 H 159 H Calcium 8.1 L Phosphorus Magnesium Alkaline Phosphatase Albumin 01/23/21 01/23/21 01/23/21 01:06 02:11 02:52 WBC MCHC RDW Seg Neuts % (Manual) Lymphocytes % (Manual) Seg Neutrophils # Man Lymphocytes # (Manual) Monocytes # (Manual) D-Dimer VBG pH Sodium Potassium Chloride Carbon Dioxide BUN Creatinine Glucose POC Glucose 162 H 182 H 167 H Calcium Phosphorus Magnesium Alkaline Phosphatase Albumin 01/23/21 01/23/21 01/23/21 04:01 04:17 04:17 WBC 20.7 H MCHC 35 H RDW 12.1 L Seg Neuts % (Manual) 88.5 H Lymphocytes % (Manual) 1.0 L Seg Neutrophils # Man 18.3 H Lymphocytes # (Manual) 0.2 L Monocytes # (Manual) 1.0 H D-Dimer VBG pH Sodium 129 L Potassium 3.3 L D Chloride Carbon Dioxide 19 L BUN 6 L Creatinine 0.4 L Glucose 189 H POC Glucose 195 H Calcium Phosphorus Magnesium Alkaline Phosphatase Albumin 01/23/21 01/23/21 01/23/21 05:04 06:08 06:47 WBC MCHC RDW Seg Neuts % (Manual) Lymphocytes % (Manual) Seg Neutrophils # Man Lymphocytes # (Manual) Monocytes # (Manual) D-Dimer VBG pH Sodium Potassium Chloride Carbon Dioxide BUN Creatinine Glucose POC Glucose 158 H 154 H 140 H Calcium Phosphorus Magnesium Alkaline Phosphatase Albumin 01/23/21 01/23/21 01/23/21 08:09 08:24 09:18 WBC MCHC RDW Seg Neuts % (Manual) Lymphocytes % (Manual) Seg Neutrophils # Man Lymphocytes # (Manual) Monocytes # (Manual) D-Dimer VBG pH Sodium 124 L Potassium Chloride 97.6 L Carbon Dioxide 17 L BUN 6 L Creatinine 0.4 L Glucose 122 H POC Glucose 124 H 133 H Calcium 7.9 L Phosphorus Magnesium Alkaline Phosphatase Albumin 01/23/21 01/23/21 01/23/21 11:24 17:08 18:43 WBC MCHC RDW Seg Neuts % (Manual) Lymphocytes % (Manual) Seg Neutrophils # Man Lymphocytes # (Manual) Monocytes # (Manual) D-Dimer VBG pH Sodium 126 L Potassium Chloride 95.4 L Carbon Dioxide 18 L BUN 5 L Creatinine 0.4 L Glucose 212 H POC Glucose 240 H 220 H Calcium Phosphorus Magnesium Alkaline Phosphatase Albumin 01/23/21 01/24/21 01/24/21 21:32 04:50 07:30 WBC MCHC RDW Seg Neuts % (Manual) Lymphocytes % (Manual) Seg Neutrophils # Man Lymphocytes # (Manual) Monocytes # (Manual) D-Dimer VBG pH Sodium Potassium Chloride Carbon Dioxide BUN Creatinine Glucose POC Glucose 198 H 262 H 255 H Calcium Phosphorus Magnesium Alkaline Phosphatase Albumin 01/24/21 01/24/21 01/24/21 11:30 11:33 16:06 WBC 20.1 H MCHC 35 H RDW 12.6 L Seg Neuts % (Manual) Lymphocytes % (Manual) 6.0 L Seg Neutrophils # Man 18.5 H Lymphocytes # (Manual) Monocytes # (Manual) D-Dimer VBG pH Sodium Potassium Chloride Carbon Dioxide BUN Creatinine Glucose POC Glucose 293 H 230 H Calcium Phosphorus Magnesium Alkaline Phosphatase Albumin 01/24/21 01/25/21 01/25/21 20:47 05:11 05:11 WBC 17.3 H MCHC 36 H RDW 12.4 L Seg Neuts % (Manual) Lymphocytes % (Manual) Seg Neutrophils # Man Lymphocytes # (Manual) Monocytes # (Manual) D-Dimer VBG pH Sodium 130 L Potassium 3.2 L Chloride 93.7 L Carbon Dioxide BUN 4 L Creatinine 0.4 L Glucose 257 H POC Glucose 333 H Calcium 7.9 L Phosphorus Magnesium Alkaline Phosphatase Albumin 01/25/21 01/25/21 01/25/21 07:31 11:05 16:03 WBC MCHC RDW Seg Neuts % (Manual) Lymphocytes % (Manual) Seg Neutrophils # Man Lymphocytes # (Manual) Monocytes # (Manual) D-Dimer VBG pH Sodium Potassium Chloride Carbon Dioxide BUN Creatinine Glucose POC Glucose 264 H 209 H 149 H Calcium Phosphorus Magnesium Alkaline Phosphatase Albumin 01/25/21 01/26/21 01/26/21 20:17 07:41 08:16 WBC MCHC RDW Seg Neuts % (Manual) Lymphocytes % (Manual) Seg Neutrophils # Man Lymphocytes # (Manual) Monocytes # (Manual) D-Dimer 375.53 H VBG pH Sodium Potassium Chloride Carbon Dioxide BUN Creatinine Glucose POC Glucose 263 H 166 H Calcium Phosphorus Magnesium Alkaline Phosphatase Albumin 01/26/21 01/26/21 01/26/21 11:41 12:20 16:07 WBC MCHC RDW Seg Neuts % (Manual) Lymphocytes % (Manual) Seg Neutrophils # Man Lymphocytes # (Manual) Monocytes # (Manual) D-Dimer 297.08 H VBG pH Sodium Potassium Chloride Carbon Dioxide BUN Creatinine Glucose POC Glucose 121 H 167 H Calcium Phosphorus Magnesium Alkaline Phosphatase Albumin 01/26/21 01/27/21 01/27/21 20:25 02:01 02:01 WBC 14.9 H MCHC 35 H RDW 12.6 L Seg Neuts % (Manual) Lymphocytes % (Manual) Seg Neutrophils # Man Lymphocytes # (Manual) Monocytes # (Manual) D-Dimer VBG pH Sodium 132 L Potassium 3.1 L Chloride 90.4 L Carbon Dioxide BUN 4 L Creatinine 0.5 L Glucose 284 H POC Glucose 273 H Calcium Phosphorus Magnesium Alkaline Phosphatase Albumin 01/27/21 01/27/21 01/27/21 07:40 09:36 11:19 WBC MCHC RDW Seg Neuts % (Manual) Lymphocytes % (Manual) Seg Neutrophils # Man Lymphocytes # (Manual) Monocytes # (Manual) D-Dimer VBG pH Sodium Potassium Chloride Carbon Dioxide BUN Creatinine Glucose POC Glucose 159 H 160 H 192 H Calcium Phosphorus Magnesium Alkaline Phosphatase Albumin Chest x-ray: image reviewed (clear) Allied health notes reviewed: nursing
--- NOTE | 2021-01-27 18:16 | Post Anesthesia Evaluation ---
- Post Anesthesia Evaluation Patient Participated: Yes Airway Patent: Yes Stable Respiratory Function: Yes Nausea/Vomiting: No Temp > 96.8F: Yes Pain Manageable: Yes Adequeate Hydration: Yes Anesthesia Complications: No Block Receding Appropriately: Not Applicable Patient on Ventilator: No
[2021-01-27] MEDS: INSULIN GLARGINE 100 UNITS/ML SUB-Q SCH (22:31)
[2021-01-28] MEDS: HYDROmorphone 1 MG/1 ML INJ IV PRN ×5 (03:08→21:58)
[2021-01-28] MEDS: HEPARIN 5,000 UNIT/1 ML VIAL SUB-Q SCH ×3 (05:17→21:55)
[2021-01-28] MEDS: VANCOMYCIN 1,250 MG in SODIUM CHLORIDE 0.9% 250ML 250 ML IV SCH ×3 (05:22→19:57)
[2021-01-28 06:13] LABS: Basophils % (Auto) 0.3 % (0.0-1.8); Eosinophils # (Auto) 0.2 K/mm3 (0.0-0.4); Eosinophils % (Auto) 1.3 % (0.0-4.3); Hematocrit 32.6 % (30.3-42.9); Hemoglobin 11.4 gm/dl (10.1-14.3); Lymphocytes % (Auto) 16.9 % (13.4-35.0); Mean Corpuscular HGB Conc 35 % (30-34); Mean Corpuscular Volume 90 fl (79-97); Monocytes # (Auto) 1.5 K/mm3 (0.0-0.8); Monocytes % (Auto) 12.3 % (0.0-7.3); Platelet Count 310 K/mm3 (140-440); Red Blood Count 3.62 M/mm3 (3.65-5.03); Red Cell Distribution Width 12.4 % (13.2-15.2)
[2021-01-28 06:31] LABS: BUN/Creatinine Ratio 8; Blood Urea Nitrogen 3 mg/dL (7-17); Calcium 8.1 mg/dL (8.4-10.2); Hemolysis Index 0
[2021-01-28] MEDS: INSULIN LISPRO 100 UNIT/ML SUB-Q SCH ×4 (07:30→21:56)
--- NOTE | 2021-01-28 09:16 | Progress Note ---
Assessment and Plan Assessment and plan: PROCEDURE: EXCISIONAL DEBRIDEMENT AND DRAINAGE OF RIGHT BUTTOCK WOUND 30 YO Female with DM, Obesity presents to ED for evaluation. Pt reports " my blood sugar is high, and my butt is sore". Patient states that she has experienced redness, swelling, tenderness in her right buttock over the last 3 days with persistently worsening symptoms over the same timeframe. Patient also acknowledges high blood glucose levels. Patient transported to [facility] via private vehicle for further care and evaluation of the aforementioned symptoms. The patient was seen and evaluated in the emergency department. All lab and imaging studies reviewed. The patient was found to have diabetic ketoacidosis complicated by metabolic acidosis, right buttock cellulitis complicated by sepsis. Patient admitted to ICU and initiated on DKA as well as sepsis protocols respectively. Patient treated with IV fluid resuscitation therapy as well. Patient denies fever, chills, chest pain, palpitation, productive cough, recent ill contacts, or known exposure to COVID-19. No prior admission for review. No medication listed at time of admission for reconciliation. Critical care consult placed in ED. 01/23: Patient seen and examined, no fever, no new complaints, wound dressing in place,. Anion Gap closed. She states she uses 70 lantus at night along with sliding scale with meals, Will transition to sq insulin and start lantus at 50. Will re-evaluate wound, Awaiting CT pelvis ordered yesterday urgently- I Understand will be done today. this will help evaluate for abscess that may require I/D Wound care consult Continue abx. Hypokalemiareplace Anticipate discharge in a.m. if remains stable and does not require any debridement 01/24: We will continue to monitor ID input noted. Continue antibiotics CT scan reviewed no drainable fluid noted but inflammation noted. Patient reported that the site bled through the night. Dressing being done at this time. Mild pseudohyponatremia noted will monitor closely while addressing blood sugar is still elevated. Anticipate discharge in next 24 hours this has been discussed with the patient and she verbalized understanding. We will discontinue IV fluid as patient is tolerating food. She also has some pain will adjust her pain medication for better control. 01/25: Continue supportive care, obtain Surgery evaluation as ID believes that this patient may eventually need drainage if organized. Will increase insulin coverage. Replace K. Sodium improving. 01/26: Noted increased Tachycardia, no respiratory distress but states that she is anxious. Will evaluate and rule out Pulmonary embolisim as patient has elevated D.dimer. Patient is for OR today for debridement of narcotizing cellulitis and follow cultures. We will also continue adjusting insulin for better blood sugar control. 6 Patient with sepsis due to right buttock wound with abscess. She had excisional debridement and drainage of right buttock wound and abscess done t [facility] by Dr. Carlos. Patient has hypokalemia, given Potassium 01/28 Patient with sepsis due to right buttock wound with abscess. She had excisional debridement and drainage of right buttock wound and abscess done today by Dr. Carlos yesterday. She has been seen by wound care Nurse and wound vac recommended. For hypokalemia, will replace po, and also check magnesium levels. Id following. Awaiting final culture report to determine Antibiotic (1) Sepsis Current Visit: Yes Status: Acute Plan to address problem: Sepsis protocol: CBC, CMP, IV antibiotic therapy, IV fluid resuscitation therapy, serial lactic acid level, blood culture, maintain mean arterial pressure greater than or equal to 65. (2) DKA (diabetic ketoacidoses) Current Visit: Yes Status: Acute Qualifiers: Diabetes mellitus type: type 1 Plan to address problem: She was treated with DKA protocol (3) Metabolic acidosis Current Visit: Yes Status: Acute Plan to address problem: Resolved (4) Obesity (BMI 30.0-34.9) Current Visit: Yes Status: Acute Plan to address problem: Balanced diet, increase physical activity at discharge (5) Cellulitis of right buttock Current Visit: Yes Status: Acute Plan to address problem: CBC, BMP, IV antibiotic therapy, supportive care. CT scan pelvis to evaluate for necrotizing soft tissue infection (6) pseudohyponatremia (7) Hypokalemia (8) elevated D-dimer (9) DVT prophylaxis Current Visit: Yes Status: Acute Plan to address problem: SCD to bilateral lower extremities while in bed History Interval history: Less pain right buttock s/p excisional debridement and drainage right buttock yesterday No more fever past 24 hrs Hospitalist Physical - Physical exam Narrative exam: - Physical exam Narrative exam: General appearance: Present: No distress, obese - EENT Eyes: Present: PERRL ENT: hearing intact, clear oral mucosa - Neck Neck: Present: supple, normal ROM - Respiratory Respiratory effort: normal Respiratory: bilateral: CTA - Cardiovascular Heart Sounds: Present: S1 & S2.tachycardia Absent: rub, click - Extremities Extremities: pulses symmetrical, No edema - Abdominal General gastrointestinal: Present: soft, non-tender, non-distended, normal bowel sounds Female genitourinary: Present: normal - Integumentary Integumentary: Present: Dressing over right buttock - Musculoskeletal Musculoskeletal: gait normal, strength equal bilaterally - Psychiatric Psychiatric: appropriate mood/affect, intact judgment & insight - Neurologic Neurologic: CNII-XII intact, moves all extremities - Constitutional Vitals: Temp Pulse Resp BP Pulse Ox 98.6 F 87 18 138/79 95 01/28/21 07:33 01/28/21 07:33 01/28/21 07:33 01/28/21 07:33 01/28/21 07:33 General appearance: Present: obese Results - Labs CBC & Chem 7: 01/28/21 05:07 01/28/21 05:07 Labs: Laboratory Last Values WBC 11.9 K/mm3 (4.5-11.0) H 01/28/21 05:07 RBC 3.62 M/mm3 (3.65-5.03) L 01/28/21 05:07 Hgb 11.4 gm/dl (10.1-14.3) 01/28/21 05:07 Hct 32.6 % (30.3-42.9) 01/28/21 05:07 MCV 90 fl (79-97) 01/28/21 05:07 MCH 31 pg (28-32) 01/28/21 05:07 MCHC 35 % (30-34) H 01/28/21 05:07 RDW 12.4 % (13.2-15.2) L 01/28/21 05:07 Plt Count 310 K/mm3 (140-440) 01/28/21 05:07 Lymph % (Auto) 16.9 % (13.4-35.0) 01/28/21 05:07 Porter % (Auto) 12.3 % (0.0-7.3) H 01/28/21 05:07 Eos % (Auto) 1.3 % (0.0-4.3) 01/28/21 05:07 Baso % (Auto) 0.3 % (0.0-1.8) 01/28/21 05:07 Lymph # (Auto) 2.0 K/mm3 (1.2-5.4) 01/28/21 05:07 Porter # (Auto) 1.5 K/mm3 (0.0-0.8) H 01/28/21 05:07 Eos # (Auto) 0.2 K/mm3 (0.0-0.4) 01/28/21 05:07 Baso # (Auto) 0.0 K/mm3 (0.0-0.1) 01/28/21 05:07 Add Manual Diff Complete 01/24/21 11:30 Total Counted 100 01/24/21 11:30 Seg Neutrophils % 69.2 % (40.0-70.0) 01/28/21 05:07 Seg Neuts % (Manual) 88.5 % (40.0-70.0) H 01/23/21 04:17 Band Neutrophils % 5.0 % 01/23/21 04:17 Lymphocytes % (Manual) 6.0 % (13.4-35.0) L 01/24/21 11:30 Monocytes % (Manual) 1.0 % (0.0-7.3) 01/24/21 11:30 Eosinophils % (Manual) 1.0 % (0.0-4.3) 01/24/21 11:30 Nucleated RBC % Not Reportable 01/24/21 11:30 Seg Neutrophils # 8.3 K/mm3 (1.8-7.7) H 01/28/21 05:07 Seg Neutrophils # Man 18.5 K/mm3 (1.8-7.7) H 01/24/21 11:30 Band Neutrophils # 0.0 K/mm3 01/24/21 11:30 Lymphocytes # (Manual) 1.2 K/mm3 (1.2-5.4) 01/24/21 11:30 Abs React Lymphs (Man) 0.0 K/mm3 01/24/21 11:30 Monocytes # (Manual) 0.2 K/mm3 (0.0-0.8) 01/24/21 11:30 Eosinophils # (Manual) 0.2 K/mm3 (0.0-0.4) 01/24/21 11:30 Basophils # (Manual) 0.0 K/mm3 (0.0-0.1) 01/24/21 11:30 Metamyelocytes # 0.0 K/mm3 01/24/21 11:30 Myelocytes # 0.0 K/mm3 01/24/21 11:30 Promyelocytes # 0.0 K/mm3 01/24/21 11:30 Blast Cells # 0.0 K/mm3 01/24/21 11:30 WBC Morphology Not Reportable 01/24/21 11:30 Hypersegmented Neuts Not Reportable 01/24/21 11:30 Hyposegmented Neuts Not Reportable 01/24/21 11:30 Hypogranular Neuts Not Reportable 01/24/21 11:30 Smudge Cells Not Reportable 01/24/21 11:30 Toxic Granulation Not Reportable 01/24/21 11:30 Toxic Vacuolation Not Reportable 01/24/21 11:30 Dohle Bodies Not Reportable 01/24/21 11:30 Pelger-Huet Anomaly Not Reportable 01/24/21 11:30 Ozzy Rods Not Reportable 01/24/21 11:30 Platelet Estimate Consistent w auto 01/24/21 11:30 Clumped Platelets Not Reportable 01/24/21 11:30 Plt Clumps, EDTA Not Reportable 01/24/21 11:30 Large Platelets Not Reportable 01/24/21 11:30 Giant Platelets Not Reportable 01/24/21 11:30 Platelet Satelliting Not Reportable 01/24/21 11:30 Plt Morphology Comment Not Reportable 01/24/21 11:30 RBC Morphology Normal 01/24/21 11:30 Dimorphic RBCs Not Reportable 01/24/21 11:30 Polychromasia Not Reportable 01/24/21 11:30 Hypochromasia Not Reportable 01/24/21 11:30 Poikilocytosis Not Reportable 01/24/21 11:30 Anisocytosis Not Reportable 01/24/21 11:30 Microcytosis Not Reportable 01/24/21 11:30 Macrocytosis Not Reportable 01/24/21 11:30 Spherocytes Not Reportable 01/24/21 11:30 Pappenheimer Bodies Not Reportable 01/24/21 11:30 Sickle Cells Not Reportable 01/24/21 11:30 Target Cells Not Reportable 01/24/21 11:30 Tear Drop Cells Not Reportable 01/24/21 11:30 Ovalocytes Not Reportable 01/24/21 11:30 Helmet Cells Not Reportable 01/24/21 11:30 Santacruz-Zurich Bodies Not Reportable 01/24/21 11:30 [place] Rings Not Reportable 01/24/21 11:30 [place] Cells Not Reportable 01/24/21 11:30 Bite Cells Not Reportable 01/24/21 11:30 Crenated Cell Not Reportable 01/24/21 11:30 Elliptocytes Not Reportable 01/24/21 11:30 Acanthocytes (Spur) Not Reportable 01/24/21 11:30 Rouleaux Not Reportable 01/24/21 11:30 Hemoglobin C Crystals Not Reportable 01/24/21 11:30 Schistocytes Not Reportable 01/24/21 11:30 Malaria parasites Not Reportable 01/24/21 11:30 Kal Bodies Not Reportable 01/24/21 11:30 Hem Pathologist Commnt No 01/24/21 11:30 D-Dimer 297.08 ng/mlDDU (0-234) H 01/26/21 12:20 VBG pH 7.303 (7.320-7.420) L 01/22/21 04:39 Sodium 137 mmol/L (137-145) 01/28/21 05:07 Potassium 3.1 mmol/L (3.6-5.0) L 01/28/21 05:07 Chloride 97.6 mmol/L (98-107) L 01/28/21 05:07 Carbon Dioxide 30 mmol/L (22-30) 01/28/21 05:07 Anion Gap 13 mmol/L 01/28/21 05:07 BUN 3 mg/dL (7-17) L 01/28/21 05:07 Creatinine 0.4 mg/dL (0.6-1.2) L 01/28/21 05:07 Estimated GFR > 60 ml/min 01/28/21 05:07 BUN/Creatinine Ratio 8 % 01/28/21 05:07 Glucose 152 mg/dL (65-100) H 01/28/21 05:07 POC Glucose 124 mg/dL (70-105) H 01/28/21 07:31 Lactic Acid 1.10 mmol/L (0.7-2.0) 01/22/21 22:26 Calcium 8.1 mg/dL (8.4-10.2) L 01/28/21 05:07 Phosphorus 1.30 mg/dL (2.5-4.5) L D 01/22/21 18:18 Magnesium 1.60 mg/dL (1.7-2.3) L 01/22/21 18:18 Total Bilirubin 0.50 mg/dL (0.1-1.2) 01/22/21 04:39 AST 9 units/L (5-40) 01/22/21 04:39 ALT 8 units/L (7-56) 01/22/21 04:39 Alkaline Phosphatase 131 units/L (35-129) H 01/22/21 04:39 Total Protein 7.3 g/dL (6.3-8.2) 01/22/21 04:39 Albumin 3.5 g/dL (3.9-5) L 01/22/21 04:39 Albumin/Globulin Ratio 0.9 % 01/22/21 04:39 HCG, Qual Negative (Negative) 01/22/21 04:39 Urine Color Yellow (Yellow) 01/22/21 06:08 Urine Turbidity Clear (Clear) 01/22/21 06:08 Urine pH 6.0 (5.0-7.0) 01/22/21 06:08 Ur Specific Mcgill 1.024 (1.003-1.030) 01/22/21 06:08 Urine Protein 30 mg/dl mg/dL (Negative) 01/22/21 06:08 Urine Glucose (UA) >=500 mg/dL (Negative) 01/22/21 06:08 Urine Ketones 80 mg/dL (Negative) 01/22/21 06:08 Urine Blood Neg (Negative) 01/22/21 06:08 Urine Nitrite Neg (Negative) 01/22/21 06:08 Urine Bilirubin Neg (Negative) 01/22/21 06:08 Urine Urobilinogen 2.0 mg/dL (<2.0) 01/22/21 06:08 Ur Leukocyte Esterase Neg (Negative) 01/22/21 06:08 Urine WBC (Auto) 3.0 /HPF (0.0-6.0) 01/22/21 06:08 Urine RBC (Auto) 2.0 /HPF (0.0-6.0) 01/22/21 06:08 U Epithel Cells (Auto) 2.0 /HPF (0-13.0) 01/22/21 06:08 Urine Mucus Few /HPF 01/22/21 06:08 Vancomycin Trough 5.5 ug/mL (5.0-20.0) 01/26/21 23:11 Microbiology: Microbiology 01/27/21 Unknown Wound - Deep Surgical Biopsy Culture - Preliminary 01/27/21 Unknown Wound - Deep Surgical Culture - Preliminary 01/22/21 10:25 Peripheral/Venous Blood Culture - Final NO GROWTH AFTER 5 DAYS 01/22/21 10:19 Peripheral/Venous Blood Culture - Final NO GROWTH AFTER 5 DAYS Trammell/IV: Voiding Method Toilet Active Medications - Current Medications Current Medications: Generic Name Dose Route Start Last Admin Trade Name Freq PRN Reason Stop Dose Admin Acetaminophen 650 mg 01/22/21 16:28 01/25/21 04:16 Acetaminophen 325 Mg Tab PO 650 mg Q6H PRN Administration Pain, Mild (1-3) Albuterol 2.5 mg 01/22/21 13:04 Albuterol 2.5 Mg/3 Ml Nebu IH Q3HRT PRN Shortness Of Breath Amlodipine Besylate 10 mg 01/26/21 10:00 01/27/21 10:21 Amlodipine 10 Mg Tab PO 10 mg DAILY LESTER Administration Dextrose 50 ml 01/23/21 08:27 Dextrose 50% In Water (25gm) 50 Ml Syringe IV Q30MIN PRN Hypoglycemia Protocol Heparin Sodium (Porcine) 5,000 unit 01/26/21 14:00 01/28/21 05:17 Heparin 5,000 Unit/1 Ml Vial SUB-Q 5,000 unit Q8HR LESTER Administration Hydralazine HCl 10 mg 01/25/21 16:35 01/25/21 19:52 Hydralazine 20 Mg/1 Ml Inj IV 10 mg Q6HR PRN Administration Hypertension Hydromorphone HCl 0.5 mg 01/25/21 09:05 01/28/21 03:08 Hydromorphone 1 Mg/1 Ml Inj IV 0.5 mg Q4H PRN Administration Pain, Moderate (4-6) Ceftriaxone Sodium 2 gm in 100 mls @ 200 mls/hr 01/23/21 11:00 01/27/21 11:19 Rocephin/Ns 2 Gm/100 Ml IV 200 mls/hr Q24HR LESTER Administration Protocol Vancomycin HCl 1,250 mg/ 275 mls @ 166.667 mls/hr 01/27/21 12:00 01/28/21 05:22 Sodium Chloride IV 166.667 mls/hr Q8H LESTER Administration Insulin Glargine 70 units 01/25/21 22:00 01/27/21 22:31 Insulin Glargine 100 Units/Ml SUB-Q 70 units QHS LESTER Administration Insulin Human Lispro 0 unit 01/23/21 11:30 01/27/21 22:30 Insulin Lispro 100 Unit/Ml SUB-Q 6 unit ACHS LESTER Administration Protocol Lisinopril 40 mg 01/26/21 10:00 01/27/21 09:45 Lisinopril 20 Mg Tab PO 40 mg QDAY LESTER Administration Potassium Chloride 40 meq 01/28/21 09:00 Potassium Chloride Er 20 Meq Tab PO 01/28/21 15:01 Q6H LESTER Sodium Chloride 10 ml 01/22/21 22:00 01/27/21 22:11 Sodium Chloride 0.9% 10 Ml Flush Syringe IV 10 ml BID LESTER Administration Sodium Chloride 10 ml 01/22/21 13:04 01/28/21 03:09 Sodium Chloride 0.9% 10 Ml Flush Syringe IV 10 ml PRN PRN Administration LINE FLUSH Nutrition/Malnutrition Assess - Dietary Evaluation Nutrition/Malnutrition Findings: Nutrition Notes Start: 01/24/21 12:20 Freq: Status: Active Protocol: Document 01/26/21 13:07 FROY (Rec: 01/26/21 13:11 FROY [id number]) Nutrition Notes Initial or Follow up Reassessment Current Diagnosis Diabetes,Sepsis Other Pertinent Diagnosis DKA Current Diet NPO Labs/Tests POC BG 166 Pertinent Medications Reviewed Height 5 ft 2 in Weight 85.1 kg [place] Body Weight (kg) 50.00 BMI 34.3 Weight change and time frame Wt change noted Weight Status Obese Subjective/Other Information FU for intakes. Pt reports eating 25-50% of most meals and drinking ONS inplace of one meal. Pt states stress and pain continue to make it hard for her to eat. Pt now NPO for procedure. Percent of energy/protein needs met: 62%/53% Burn Absent Trauma Absent GI Symptoms Nausea Current % PO Poor (25-49%) Minimum of two criteria No physical signs of malnutrition #2 Nutrition Diagnosis Increased nutrient needs ( specify in comment below) Diagnosis Progress(for reassessment Continues documentation) #1 Nutrition Diagnosis Inadequate oral intake As Evidenced by Signs and Symptoms pt meeting 62%/53% of calorie/ protein needs Diagnosis Progress(for reassessment Continues documentation) Is patient on ventilator? No Is Patient Ambulatory and/or Out of Bed No REE-([facility]-confined to bed) 1825.056 Kcal/Kg value to use for calculation 18 Approximate Energy Requirements Using 1532 kcal/Kg Calculation Used for Recommendations Kcal/kg Additional Notes Protein: (1.25-1.5 g/kg AdjBW: 64 kg) 81-96g Fluid: 1 ml/kcal Nutrition Intervention Change Diet Order: Continue Add Supplement/Snack (indicate name/kcal Glucerna TID when diet /protein ) advances Provides kCal: 660 Provides Protein (gm) 30 Goal #1 Meet at least 75% of protein and energy needs via PO and ONS intakes Anticipated Discharge Needs: Consistent CHO Follow-Up By: 01/28/21 Additional Comments FU for intakes and ONS tolerance
[2021-01-28] MEDS: amLODIPine 10 MG TAB PO SCH (09:30)
[2021-01-28] MEDS: cefTRIAXone/NS 2 GM/100 ML 2 GM/100 ML BAG IV SCH (09:30)
[2021-01-28] MEDS: LISINOPRIL 20 MG TAB PO SCH (09:30)
[2021-01-28] MEDS: POTASSIUM CHLORIDE ER 20 MEQ TAB PO SCH ×3 (09:30→16:50)
--- NOTE | 2021-01-28 11:12 | Event Note ---
Date: 01/28/21 No acute events. Pt evaluated with wound care nurse. Wound looks clean and is less tender. Pt will follow up with wound care as an outpatient, and wound care nurse recommends wound vac placement. She will arrange with case management.
--- NOTE | 2021-01-28 12:44 | Progress Note ---
Assessment and Plan Cultures: 01/22/2021 blood culture: no growth 01/27/2021 OR deep culture: in process. GPC in pairs on Gram stain. A/P: 30-year-old female with diabetes mellitus admitted to the hospital with pain in her right buttock and DKA: #Sepsis, secondary to right buttock cellulitis and abscess: s/p I&D on 01/26/2021 #Diabetes mellitus, uncontrolled, was admitted with diabetic ketoacidosis Recs: -Ceftriaxone discontinued, continue IV Vancomycin with trough monitoring -f/u OR cultures to help guide PO abx therapy for discharge. If cultures show no growth, discharge on p.o. Augmentin 875 mg twice daily plus p.o. doxycycline for 5 days -maintain glycemic control -wound care Maverick Pierce MD, FACP [facility] ([facility] O: [phone] F: [phone] Subjective Date of service: 01/28/21 Principal diagnosis: Sepsis; DKA; Hyponatremia; Obesity; Cellulitis of right buttock Interval history: Continues to feel better. No fever. Pain is controlled. Objective - Exam Narrative Exam: Physical Exam: Constitutional: Alert, cooperative. No acute distress Head, Ears, Nose: Normocephalic, atraumatic. External ears, nose normal Eyes: Conjunctivae/corneas clear. No icterus. No ptosis. Neck: Supple, no meningeal signs Cardiovascular: S1, S2 normal. Respiratory: Good air entry, clear to auscultation bilaterally GI: Soft, non-tender; bowel sounds normal. No peritoneal signs Musculoskeletal: No pedal edema, no cyanosis. Skin: Right buttock dressing + Hem/Lymphatic: No palpable cervical or supraclavicular nodes. No lymphangitis Psych: Mood ok. Affect normal Neurological: Awake, alert, oriented. No gross abnormality - Constitutional Vitals: Vital Signs Temp Pulse Resp BP Pulse Ox 99.5 F 99 H 18 144/73 90 01/28/21 11:59 01/28/21 11:59 01/28/21 11:59 01/28/21 11:59 01/28/21 11:59 Temperature -Last 24 Hours Temperature 99.5 F Temperature 98.6 F Temperature 98.4 F Temperature 98.6 F Temperature 98.7 F Temperature 99.3 F Temperature 98.2 F - Labs CBC & Chem 7: 01/28/21 05:07 01/28/21 05:07 Labs: Abnormal lab results 01/27/21 01/27/21 01/28/21 Range/Units 16:41 22:21 05:07 WBC 11.9 H (4.5-11.0) K/mm3 RBC 3.62 L (3.65-5.03) M/mm3 MCHC 35 H (30-34) % RDW 12.4 L (13.2-15.2) % [place] % (Auto) 12.3 H (0.0-7.3) % [place] # (Auto) 1.5 H (0.0-0.8) K/mm3 Seg Neutrophils # 8.3 H (1.8-7.7) K/mm3 Potassium (3.6-5.0) mmol/L Chloride (98-107) mmol/L BUN (7-17) mg/dL Creatinine (0.6-1.2) mg/dL Glucose (65-100) mg/dL POC Glucose 295 H 296 H (70-105) mg/dL Calcium (8.4-10.2) mg/dL 01/28/21 01/28/21 Range/Units 05:07 07:31 WBC (4.5-11.0) K/mm3 RBC (3.65-5.03) M/mm3 MCHC (30-34) % RDW (13.2-15.2) % [place] % (Auto) (0.0-7.3) % [place] # (Auto) (0.0-0.8) K/mm3 Seg Neutrophils # (1.8-7.7) K/mm3 Potassium 3.1 L (3.6-5.0) mmol/L Chloride 97.6 L (98-107) mmol/L BUN 3 L (7-17) mg/dL Creatinine 0.4 L (0.6-1.2) mg/dL Glucose 152 H (65-100) mg/dL POC Glucose 124 H (70-105) mg/dL Calcium 8.1 L (8.4-10.2) mg/dL
--- NOTE | 2021-01-28 13:37 | Progress Note ---
Assessment and Plan Sepsis DKA Hyponatremia Obesity Cellulitis of right buttock - continue accuchecks with glycemic control per SSI for target blood glucose < 180 mg/dL - continue wound care per RN/WCT - complete AB's per ID recommendations - prn supplemental oxygen to keep O2 sats > 90% - prn bronchodilators ( & LABA) with pulm hygiene per RT - continue to avoid nephrotoxins, renally dose all medications - continue mobility protocols to prevent pressure ulcers - prn analgesia per pain score - PT/OT as tolerated - tobacco abstinence strongly counseled at the bedside - home oxygen evaluation at discharge - GI & VTE prophylaxis - Flu & pneumovax per protocol - continue other care per attending / other consultants ... re-evaluate in am & prn Subjective Date of service: 01/28/21 Principal diagnosis: Sepsis; DKA; Hyponatremia; Obesity; Cellulitis of right buttock Interval history: Patient is seen today for: Sepsis; DKA; Hyponatremia; Obesity; Cellulitis of right buttock Seen and examined at bedside; 24hour events reviewed; nursing and respiratory care staff consulted; no adverse overnight events reported to me; resting peacefully in bed; denies acute chest pains or SOB; no emesis or overt aspiration; afebrile Objective Vital Signs - 12hr 01/28/21 01/28/21 01/28/21 03:08 04:46 07:33 Temperature 98.4 F 98.6 F Pulse Rate 86 87 Respiratory 18 20 18 Rate Blood Pressure 126/74 138/79 O2 Sat by Pulse 95 95 Oximetry 01/28/21 01/28/21 09:30 11:59 Temperature 99.5 F Pulse Rate 87 99 H Respiratory 18 Rate Blood Pressure 138/79 144/73 O2 Sat by Pulse 90 Oximetry Constitutional: no acute distress, alert Eyes: non-icteric ENT: oropharynx moist Neck: supple, no lymphadenopathy Effort: normal Ascultation: Bilateral: clear Percussion: Bilateral: not dull Cardiovascular: regular rate and rhythm Gastrointestinal: normoactive bowel sounds, soft, non-tender, non-distended (protuberant) Integumentary: cellulitis, other (Abscess on right buttock.) Extremities: no cyanosis, no edema Neurologic: normal mental status, non-focal exam, pupils equal and round, CN II- XII normal Psychiatric: mood appropriate CBC and BMP: 01/28/21 05:07 01/29/21 04:37 ABG, PT/INR, D-dimer: PT/INR, D-dimer D-Dimer 297.08 ng/mlDDU (0-234) H 01/26/21 12:20 Abnormal lab findings: Abnormal Labs 01/22/21 01/22/21 01/22/21 04:23 04:39 04:39 WBC 18.7 H RBC MCHC 35 H RDW 12.3 L [place] % (Auto) [place] # (Auto) Seg Neuts % (Manual) 89.0 H Lymphocytes % (Manual) 2.0 L Seg Neutrophils # Seg Neutrophils # Man 16.6 H Lymphocytes # (Manual) 0.4 L Monocytes # (Manual) D-Dimer VBG pH Sodium 129 L Potassium 3.4 L Chloride 94.0 L Carbon Dioxide 17 L BUN Creatinine 0.5 L Glucose 328 H POC Glucose 324 H Calcium Phosphorus Magnesium Alkaline Phosphatase 131 H Albumin 3.5 L 01/22/21 01/22/21 01/22/21 04:39 10:19 11:57 WBC RBC MCHC RDW [place] % (Auto) [place] # (Auto) Seg Neuts % (Manual) Lymphocytes % (Manual) Seg Neutrophils # Seg Neutrophils # Man Lymphocytes # (Manual) Monocytes # (Manual) D-Dimer VBG pH 7.303 L Sodium 127 L Potassium 3.4 L Chloride 90.9 L Carbon Dioxide 13 L BUN Creatinine 0.5 L Glucose 306 H POC Glucose 283 H Calcium Phosphorus Magnesium Alkaline Phosphatase Albumin 01/22/21 01/22/21 01/22/21 14:17 15:56 16:56 WBC RBC MCHC RDW [place] % (Auto) [place] # (Auto) Seg Neuts % (Manual) Lymphocytes % (Manual) Seg Neutrophils # Seg Neutrophils # Man Lymphocytes # (Manual) Monocytes # (Manual) D-Dimer VBG pH Sodium 132 L Potassium 3.3 L Chloride Carbon Dioxide 14 L BUN Creatinine 0.5 L Glucose 267 H POC Glucose 198 H 197 H Calcium Phosphorus Magnesium Alkaline Phosphatase Albumin 01/22/21 01/22/21 01/22/21 18:18 18:18 19:06 WBC RBC MCHC RDW [place] % (Auto) [place] # (Auto) Seg Neuts % (Manual) Lymphocytes % (Manual) Seg Neutrophils # Seg Neutrophils # Man Lymphocytes # (Manual) Monocytes # (Manual) D-Dimer VBG pH Sodium 130 L Potassium 3.1 L Chloride Carbon Dioxide 15 L BUN Creatinine 0.4 L Glucose 241 H POC Glucose 226 H 203 H Calcium 8.3 L Phosphorus 1.30 L D Magnesium 1.60 L Alkaline Phosphatase Albumin 01/22/21 01/22/21 01/22/21 20:08 21:14 22:02 WBC RBC MCHC RDW [place] % (Auto) [place] # (Auto) Seg Neuts % (Manual) Lymphocytes % (Manual) Seg Neutrophils # Seg Neutrophils # Man Lymphocytes # (Manual) Monocytes # (Manual) D-Dimer VBG pH Sodium Potassium Chloride Carbon Dioxide BUN Creatinine Glucose POC Glucose 233 H 202 H 181 H Calcium Phosphorus Magnesium Alkaline Phosphatase Albumin 01/22/21 01/22/21 01/22/21 22:26 23:07 23:56 WBC RBC MCHC RDW [place] % (Auto) [place] # (Auto) Seg Neuts % (Manual) Lymphocytes % (Manual) Seg Neutrophils # Seg Neutrophils # Man Lymphocytes # (Manual) Monocytes # (Manual) D-Dimer VBG pH Sodium 130 L Potassium 2.6 L* Chloride Carbon Dioxide 20 L BUN Creatinine 0.4 L Glucose 185 H POC Glucose 160 H 159 H Calcium 8.1 L Phosphorus Magnesium Alkaline Phosphatase Albumin 01/23/21 01/23/21 01/23/21 01:06 02:11 02:52 WBC RBC MCHC RDW [place] % (Auto) [place] # (Auto) Seg Neuts % (Manual) Lymphocytes % (Manual) Seg Neutrophils # Seg Neutrophils # Man Lymphocytes # (Manual) Monocytes # (Manual) D-Dimer VBG pH Sodium Potassium Chloride Carbon Dioxide BUN Creatinine Glucose POC Glucose 162 H 182 H 167 H Calcium Phosphorus Magnesium Alkaline Phosphatase Albumin 01/23/21 01/23/21 01/23/21 04:01 04:17 04:17 WBC 20.7 H RBC MCHC 35 H RDW 12.1 L [place] % (Auto) [place] # (Auto) Seg Neuts % (Manual) 88.5 H Lymphocytes % (Manual) 1.0 L Seg Neutrophils # Seg Neutrophils # Man 18.3 H Lymphocytes # (Manual) 0.2 L Monocytes # (Manual) 1.0 H D-Dimer VBG pH Sodium 129 L Potassium 3.3 L D Chloride Carbon Dioxide 19 L BUN 6 L Creatinine 0.4 L Glucose 189 H POC Glucose 195 H Calcium Phosphorus Magnesium Alkaline Phosphatase Albumin 01/23/21 01/23/21 01/23/21 05:04 06:08 06:47 WBC RBC MCHC RDW [place] % (Auto) [place] # (Auto) Seg Neuts % (Manual) Lymphocytes % (Manual) Seg Neutrophils # Seg Neutrophils # Man Lymphocytes # (Manual) Monocytes # (Manual) D-Dimer VBG pH Sodium Potassium Chloride Carbon Dioxide BUN Creatinine Glucose POC Glucose 158 H 154 H 140 H Calcium Phosphorus Magnesium Alkaline Phosphatase Albumin 01/23/21 01/23/21 01/23/21 08:09 08:24 09:18 WBC RBC MCHC RDW [place] % (Auto) [place] # (Auto) Seg Neuts % (Manual) Lymphocytes % (Manual) Seg Neutrophils # Seg Neutrophils # Man Lymphocytes # (Manual) Monocytes # (Manual) D-Dimer VBG pH Sodium 124 L Potassium Chloride 97.6 L Carbon Dioxide 17 L BUN 6 L Creatinine 0.4 L Glucose 122 H POC Glucose 124 H 133 H Calcium 7.9 L Phosphorus Magnesium Alkaline Phosphatase Albumin 01/23/21 01/23/21 01/23/21 11:24 17:08 18:43 WBC RBC MCHC RDW [place] % (Auto) [place] # (Auto) Seg Neuts % (Manual) Lymphocytes % (Manual) Seg Neutrophils # Seg Neutrophils # Man Lymphocytes # (Manual) Monocytes # (Manual) D-Dimer VBG pH Sodium 126 L Potassium Chloride 95.4 L Carbon Dioxide 18 L BUN 5 L Creatinine 0.4 L Glucose 212 H POC Glucose 240 H 220 H Calcium Phosphorus Magnesium Alkaline Phosphatase Albumin 01/23/21 01/24/21 01/24/21 21:32 04:50 07:30 WBC RBC MCHC RDW [place] % (Auto) [place] # (Auto) Seg Neuts % (Manual) Lymphocytes % (Manual) Seg Neutrophils # Seg Neutrophils # Man Lymphocytes # (Manual) Monocytes # (Manual) D-Dimer VBG pH Sodium Potassium Chloride Carbon Dioxide BUN Creatinine Glucose POC Glucose 198 H 262 H 255 H Calcium Phosphorus Magnesium Alkaline Phosphatase Albumin 01/24/21 01/24/21 01/24/21 11:30 11:33 16:06 WBC 20.1 H RBC MCHC 35 H RDW 12.6 L [place] % (Auto) [place] # (Auto) Seg Neuts % (Manual) Lymphocytes % (Manual) 6.0 L Seg Neutrophils # Seg Neutrophils # Man 18.5 H Lymphocytes # (Manual) Monocytes # (Manual) D-Dimer VBG pH Sodium Potassium Chloride Carbon Dioxide BUN Creatinine Glucose POC Glucose 293 H 230 H Calcium Phosphorus Magnesium Alkaline Phosphatase Albumin 01/24/21 01/25/21 01/25/21 20:47 05:11 05:11 WBC 17.3 H RBC MCHC 36 H RDW 12.4 L [place] % (Auto) [place] # (Auto) Seg Neuts % (Manual) Lymphocytes % (Manual) Seg Neutrophils # Seg Neutrophils # Man Lymphocytes # (Manual) Monocytes # (Manual) D-Dimer VBG pH Sodium 130 L Potassium 3.2 L Chloride 93.7 L Carbon Dioxide BUN 4 L Creatinine 0.4 L Glucose 257 H POC Glucose 333 H Calcium 7.9 L Phosphorus Magnesium Alkaline Phosphatase Albumin 01/25/21 01/25/21 01/25/21 07:31 11:05 16:03 WBC RBC MCHC RDW [place] % (Auto) [place] # (Auto) Seg Neuts % (Manual) Lymphocytes % (Manual) Seg Neutrophils # Seg Neutrophils # Man Lymphocytes # (Manual) Monocytes # (Manual) D-Dimer VBG pH Sodium Potassium Chloride Carbon Dioxide BUN Creatinine Glucose POC Glucose 264 H 209 H 149 H Calcium Phosphorus Magnesium Alkaline Phosphatase Albumin 01/25/21 01/26/21 01/26/21 20:17 07:41 08:16 WBC RBC MCHC RDW [place] % (Auto) [place] # (Auto) Seg Neuts % (Manual) Lymphocytes % (Manual) Seg Neutrophils # Seg Neutrophils # Man Lymphocytes # (Manual) Monocytes # (Manual) D-Dimer 375.53 H VBG pH Sodium Potassium Chloride Carbon Dioxide BUN Creatinine Glucose POC Glucose 263 H 166 H Calcium Phosphorus Magnesium Alkaline Phosphatase Albumin 01/26/21 01/26/21 01/26/21 11:41 12:20 16:07 WBC RBC MCHC RDW [place] % (Auto) [place] # (Auto) Seg Neuts % (Manual) Lymphocytes % (Manual) Seg Neutrophils # Seg Neutrophils # Man Lymphocytes # (Manual) Monocytes # (Manual) D-Dimer 297.08 H VBG pH Sodium Potassium Chloride Carbon Dioxide BUN Creatinine Glucose POC Glucose 121 H 167 H Calcium Phosphorus Magnesium Alkaline Phosphatase Albumin 01/26/21 01/27/21 01/27/21 20:25 02:01 02:01 WBC 14.9 H RBC MCHC 35 H RDW 12.6 L [place] % (Auto) [place] # (Auto) Seg Neuts % (Manual) Lymphocytes % (Manual) Seg Neutrophils # Seg Neutrophils # Man Lymphocytes # (Manual) Monocytes # (Manual) D-Dimer VBG pH Sodium 132 L Potassium 3.1 L Chloride 90.4 L Carbon Dioxide BUN 4 L Creatinine 0.5 L Glucose 284 H POC Glucose 273 H Calcium Phosphorus Magnesium Alkaline Phosphatase Albumin 01/27/21 01/27/21 01/27/21 07:40 09:36 11:19 WBC RBC MCHC RDW [place] % (Auto) [place] # (Auto) Seg Neuts % (Manual) Lymphocytes % (Manual) Seg Neutrophils # Seg Neutrophils # Man Lymphocytes # (Manual) Monocytes # (Manual) D-Dimer VBG pH Sodium Potassium Chloride Carbon Dioxide BUN Creatinine Glucose POC Glucose 159 H 160 H 192 H Calcium Phosphorus Magnesium Alkaline Phosphatase Albumin 01/27/21 01/27/21 01/28/21 16:41 22:21 05:07 WBC 11.9 H RBC 3.62 L MCHC 35 H RDW 12.4 L [place] % (Auto) 12.3 H [place] # (Auto) 1.5 H Seg Neuts % (Manual) Lymphocytes % (Manual) Seg Neutrophils # 8.3 H Seg Neutrophils # Man Lymphocytes # (Manual) Monocytes # (Manual) D-Dimer VBG pH Sodium Potassium Chloride Carbon Dioxide BUN Creatinine Glucose POC Glucose 295 H 296 H Calcium Phosphorus Magnesium Alkaline Phosphatase Albumin 01/28/21 01/28/21 01/28/21 05:07 07:31 11:57 WBC RBC MCHC RDW [place] % (Auto) [place] # (Auto) Seg Neuts % (Manual) Lymphocytes % (Manual) Seg Neutrophils # Seg Neutrophils # Man Lymphocytes # (Manual) Monocytes # (Manual) D-Dimer VBG pH Sodium Potassium 3.1 L Chloride 97.6 L Carbon Dioxide BUN 3 L Creatinine 0.4 L Glucose 152 H POC Glucose 124 H 167 H Calcium 8.1 L Phosphorus Magnesium Alkaline Phosphatase Albumin Allied health notes reviewed: nursing
[2021-01-28] MEDS: INSULIN GLARGINE 100 UNITS/ML SUB-Q SCH (21:55)
[2021-01-28] MEDS ORDERED: MAGNESIUM SULFATE 2 GM/50 ML BAG IV ONE (22:18)
[2021-01-29] MEDS: HYDROmorphone 1 MG/1 ML INJ IV PRN ×6 (03:03→23:28)
[2021-01-29] MEDS: VANCOMYCIN 1,250 MG in SODIUM CHLORIDE 0.9% 250ML 250 ML IV SCH ×3 (03:04→20:45)
[2021-01-29 05:54] LABS: Blood Urea Nitrogen 2 mg/dL (7-17); Calcium 8.2 mg/dL (8.4-10.2); Hemolysis Index 2
[2021-01-29 06:00] LABS: BUN/Creatinine Ratio 5
[2021-01-29] MEDS: HEPARIN 5,000 UNIT/1 ML VIAL SUB-Q SCH ×3 (06:27→21:00)
[2021-01-29] MEDS: INSULIN LISPRO 100 UNIT/ML SUB-Q SCH ×4 (08:17→21:06)
[2021-01-29] MEDS: POTASSIUM CHLORIDE ER 20 MEQ TAB PO SCH ×2 (08:20→17:55)
[2021-01-29] MEDS: LISINOPRIL 20 MG TAB PO SCH (10:47)
[2021-01-29] MEDS: cefTRIAXone/NS 2 GM/100 ML 2 GM/100 ML BAG IV SCH (10:48)
[2021-01-29] MEDS: amLODIPine 10 MG TAB PO SCH (10:48)
--- NOTE | 2021-01-29 13:07 | Progress Note ---
Assessment and Plan Sepsis DKA Hyponatremia Obesity Cellulitis of right buttock - continue accuchecks with glycemic control per SSI for target blood glucose < 180 mg/dL - continue wound care per RN/WCT - complete AB's per ID recommendations - prn supplemental oxygen to keep O2 sats > 90% - prn bronchodilators () with pulm hygiene per RT - continue to avoid nephrotoxins, renally dose all medications - mobility protocols to prevent pressure ulcers - prn analgesia per pain score - PT/OT as tolerated - tobacco abstinence strongly counseled at the bedside - home oxygen evaluation at discharge - GI & VTE prophylaxis - Flu & pneumovax per protocol - continue other care per attending / other consultants ... re-evaluate in am & prn Subjective Date of service: 01/29/21 Principal diagnosis: Sepsis; DKA; Hyponatremia; Obesity; Cellulitis of right buttock Interval history: Patient is seen today for: Sepsis; DKA; Hyponatremia; Obesity; Cellulitis of right buttock Seen and examined at bedside; 24hour events reviewed; nursing and respiratory care staff consulted; no adverse overnight events reported to me; resting peacefully in bed; d/c planning ongoing; better glycemic control overall; denies N/V/F/C Objective Vital Signs - 12hr 01/29/21 01/29/21 01/29/21 04:24 07:29 10:47 Temperature 98.6 F 98.2 F Pulse Rate 94 H 88 88 Respiratory 18 20 Rate Blood Pressure 143/92 144/79 144/79 O2 Sat by Pulse 100 96 Oximetry 01/29/21 01/29/21 10:48 11:15 Temperature 99.0 F Pulse Rate 88 90 Respiratory 20 Rate Blood Pressure 144/79 154/90 O2 Sat by Pulse 93 Oximetry Constitutional: no acute distress, alert Eyes: non-icteric ENT: oropharynx moist Neck: supple, no lymphadenopathy, no JVD Effort: normal Ascultation: Bilateral: clear Percussion: Bilateral: not dull Cardiovascular: regular rate and rhythm Gastrointestinal: normoactive bowel sounds, soft, non-tender, non-distended (protuberant) Integumentary: cellulitis, other (Abscess on buttock.) Extremities: no cyanosis, no edema Neurologic: normal mental status, non-focal exam, pupils equal and round, CN II- XII normal Psychiatric: mood appropriate, affect normal CBC and BMP: 01/30/21 05:37 01/30/21 05:37 ABG, PT/INR, D-dimer: PT/INR, D-dimer D-Dimer 297.08 ng/mlDDU (0-234) H 01/26/21 12:20 Abnormal lab findings: Abnormal Labs 01/22/21 01/22/21 01/22/21 04:23 04:39 04:39 WBC 18.7 H RBC MCHC 35 H RDW 12.3 L [place] % (Auto) [place] # (Auto) Seg Neuts % (Manual) 89.0 H Lymphocytes % (Manual) 2.0 L Seg Neutrophils # Seg Neutrophils # Man 16.6 H Lymphocytes # (Manual) 0.4 L Monocytes # (Manual) D-Dimer VBG pH Sodium 129 L Potassium 3.4 L Chloride 94.0 L Carbon Dioxide 17 L BUN Creatinine 0.5 L Glucose 328 H POC Glucose 324 H Calcium Phosphorus Magnesium Alkaline Phosphatase 131 H Albumin 3.5 L 01/22/21 01/22/21 01/22/21 04:39 10:19 11:57 WBC RBC MCHC RDW [place] % (Auto) [place] # (Auto) Seg Neuts % (Manual) Lymphocytes % (Manual) Seg Neutrophils # Seg Neutrophils # Man Lymphocytes # (Manual) Monocytes # (Manual) D-Dimer VBG pH 7.303 L Sodium 127 L Potassium 3.4 L Chloride 90.9 L Carbon Dioxide 13 L BUN Creatinine 0.5 L Glucose 306 H POC Glucose 283 H Calcium Phosphorus Magnesium Alkaline Phosphatase Albumin 01/22/21 01/22/21 01/22/21 14:17 15:56 16:56 WBC RBC MCHC RDW [place] % (Auto) [place] # (Auto) Seg Neuts % (Manual) Lymphocytes % (Manual) Seg Neutrophils # Seg Neutrophils # Man Lymphocytes # (Manual) Monocytes # (Manual) D-Dimer VBG pH Sodium 132 L Potassium 3.3 L Chloride Carbon Dioxide 14 L BUN Creatinine 0.5 L Glucose 267 H POC Glucose 198 H 197 H Calcium Phosphorus Magnesium Alkaline Phosphatase Albumin 01/22/21 01/22/21 01/22/21 18:18 18:18 19:06 WBC RBC MCHC RDW [place] % (Auto) [place] # (Auto) Seg Neuts % (Manual) Lymphocytes % (Manual) Seg Neutrophils # Seg Neutrophils # Man Lymphocytes # (Manual) Monocytes # (Manual) D-Dimer VBG pH Sodium 130 L Potassium 3.1 L Chloride Carbon Dioxide 15 L BUN Creatinine 0.4 L Glucose 241 H POC Glucose 226 H 203 H Calcium 8.3 L Phosphorus 1.30 L D Magnesium 1.60 L Alkaline Phosphatase Albumin 01/22/21 01/22/21 01/22/21 20:08 21:14 22:02 WBC RBC MCHC RDW [place] % (Auto) [place] # (Auto) Seg Neuts % (Manual) Lymphocytes % (Manual) Seg Neutrophils # Seg Neutrophils # Man Lymphocytes # (Manual) Monocytes # (Manual) D-Dimer VBG pH Sodium Potassium Chloride Carbon Dioxide BUN Creatinine Glucose POC Glucose 233 H 202 H 181 H Calcium Phosphorus Magnesium Alkaline Phosphatase Albumin 01/22/21 01/22/21 01/22/21 22:26 23:07 23:56 WBC RBC MCHC RDW [place] % (Auto) [place] # (Auto) Seg Neuts % (Manual) Lymphocytes % (Manual) Seg Neutrophils # Seg Neutrophils # Man Lymphocytes # (Manual) Monocytes # (Manual) D-Dimer VBG pH Sodium 130 L Potassium 2.6 L* Chloride Carbon Dioxide 20 L BUN Creatinine 0.4 L Glucose 185 H POC Glucose 160 H 159 H Calcium 8.1 L Phosphorus Magnesium Alkaline Phosphatase Albumin 01/23/21 01/23/21 01/23/21 01:06 02:11 02:52 WBC RBC MCHC RDW [place] % (Auto) [place] # (Auto) Seg Neuts % (Manual) Lymphocytes % (Manual) Seg Neutrophils # Seg Neutrophils # Man Lymphocytes # (Manual) Monocytes # (Manual) D-Dimer VBG pH Sodium Potassium Chloride Carbon Dioxide BUN Creatinine Glucose POC Glucose 162 H 182 H 167 H Calcium Phosphorus Magnesium Alkaline Phosphatase Albumin 01/23/21 01/23/21 01/23/21 04:01 04:17 04:17 WBC 20.7 H RBC MCHC 35 H RDW 12.1 L [place] % (Auto) [place] # (Auto) Seg Neuts % (Manual) 88.5 H Lymphocytes % (Manual) 1.0 L Seg Neutrophils # Seg Neutrophils # Man 18.3 H Lymphocytes # (Manual) 0.2 L Monocytes # (Manual) 1.0 H D-Dimer VBG pH Sodium 129 L Potassium 3.3 L D Chloride Carbon Dioxide 19 L BUN 6 L Creatinine 0.4 L Glucose 189 H POC Glucose 195 H Calcium Phosphorus Magnesium Alkaline Phosphatase Albumin 01/23/21 01/23/21 01/23/21 05:04 06:08 06:47 WBC RBC MCHC RDW [place] % (Auto) [place] # (Auto) Seg Neuts % (Manual) Lymphocytes % (Manual) Seg Neutrophils # Seg Neutrophils # Man Lymphocytes # (Manual) Monocytes # (Manual) D-Dimer VBG pH Sodium Potassium Chloride Carbon Dioxide BUN Creatinine Glucose POC Glucose 158 H 154 H 140 H Calcium Phosphorus Magnesium Alkaline Phosphatase Albumin 01/23/21 01/23/21 01/23/21 08:09 08:24 09:18 WBC RBC MCHC RDW [place] % (Auto) [place] # (Auto) Seg Neuts % (Manual) Lymphocytes % (Manual) Seg Neutrophils # Seg Neutrophils # Man Lymphocytes # (Manual) Monocytes # (Manual) D-Dimer VBG pH Sodium 124 L Potassium Chloride 97.6 L Carbon Dioxide 17 L BUN 6 L Creatinine 0.4 L Glucose 122 H POC Glucose 124 H 133 H Calcium 7.9 L Phosphorus Magnesium Alkaline Phosphatase Albumin 01/23/21 01/23/21 01/23/21 11:24 17:08 18:43 WBC RBC MCHC RDW [place] % (Auto) [place] # (Auto) Seg Neuts % (Manual) Lymphocytes % (Manual) Seg Neutrophils # Seg Neutrophils # Man Lymphocytes # (Manual) Monocytes # (Manual) D-Dimer VBG pH Sodium 126 L Potassium Chloride 95.4 L Carbon Dioxide 18 L BUN 5 L Creatinine 0.4 L Glucose 212 H POC Glucose 240 H 220 H Calcium Phosphorus Magnesium Alkaline Phosphatase Albumin 01/23/21 01/24/21 01/24/21 21:32 04:50 07:30 WBC RBC MCHC RDW [place] % (Auto) [place] # (Auto) Seg Neuts % (Manual) Lymphocytes % (Manual) Seg Neutrophils # Seg Neutrophils # Man Lymphocytes # (Manual) Monocytes # (Manual) D-Dimer VBG pH Sodium Potassium Chloride Carbon Dioxide BUN Creatinine Glucose POC Glucose 198 H 262 H 255 H Calcium Phosphorus Magnesium Alkaline Phosphatase Albumin 01/24/21 01/24/21 01/24/21 11:30 11:33 16:06 WBC 20.1 H RBC MCHC 35 H RDW 12.6 L [place] % (Auto) [place] # (Auto) Seg Neuts % (Manual) Lymphocytes % (Manual) 6.0 L Seg Neutrophils # Seg Neutrophils # Man 18.5 H Lymphocytes # (Manual) Monocytes # (Manual) D-Dimer VBG pH Sodium Potassium Chloride Carbon Dioxide BUN Creatinine Glucose POC Glucose 293 H 230 H Calcium Phosphorus Magnesium Alkaline Phosphatase Albumin 01/24/21 01/25/21 01/25/21 20:47 05:11 05:11 WBC 17.3 H RBC MCHC 36 H RDW 12.4 L [place] % (Auto) [place] # (Auto) Seg Neuts % (Manual) Lymphocytes % (Manual) Seg Neutrophils # Seg Neutrophils # Man Lymphocytes # (Manual) Monocytes # (Manual) D-Dimer VBG pH Sodium 130 L Potassium 3.2 L Chloride 93.7 L Carbon Dioxide BUN 4 L Creatinine 0.4 L Glucose 257 H POC Glucose 333 H Calcium 7.9 L Phosphorus Magnesium Alkaline Phosphatase Albumin 01/25/21 01/25/21 01/25/21 07:31 11:05 16:03 WBC RBC MCHC RDW [place] % (Auto) [place] # (Auto) Seg Neuts % (Manual) Lymphocytes % (Manual) Seg Neutrophils # Seg Neutrophils # Man Lymphocytes # (Manual) Monocytes # (Manual) D-Dimer VBG pH Sodium Potassium Chloride Carbon Dioxide BUN Creatinine Glucose POC Glucose 264 H 209 H 149 H Calcium Phosphorus Magnesium Alkaline Phosphatase Albumin 01/25/21 01/26/21 01/26/21 20:17 07:41 08:16 WBC RBC MCHC RDW [place] % (Auto) [place] # (Auto) Seg Neuts % (Manual) Lymphocytes % (Manual) Seg Neutrophils # Seg Neutrophils # Man Lymphocytes # (Manual) Monocytes # (Manual) D-Dimer 375.53 H VBG pH Sodium Potassium Chloride Carbon Dioxide BUN Creatinine Glucose POC Glucose 263 H 166 H Calcium Phosphorus Magnesium Alkaline Phosphatase Albumin 01/26/21 01/26/21 01/26/21 11:41 12:20 16:07 WBC RBC MCHC RDW [place] % (Auto) [place] # (Auto) Seg Neuts % (Manual) Lymphocytes % (Manual) Seg Neutrophils # Seg Neutrophils # Man Lymphocytes # (Manual) Monocytes # (Manual) D-Dimer 297.08 H VBG pH Sodium Potassium Chloride Carbon Dioxide BUN Creatinine Glucose POC Glucose 121 H 167 H Calcium Phosphorus Magnesium Alkaline Phosphatase Albumin 01/26/21 01/27/21 01/27/21 20:25 02:01 02:01 WBC 14.9 H RBC MCHC 35 H RDW 12.6 L [place] % (Auto) [place] # (Auto) Seg Neuts % (Manual) Lymphocytes % (Manual) Seg Neutrophils # Seg Neutrophils # Man Lymphocytes # (Manual) Monocytes # (Manual) D-Dimer VBG pH Sodium 132 L Potassium 3.1 L Chloride 90.4 L Carbon Dioxide BUN 4 L Creatinine 0.5 L Glucose 284 H POC Glucose 273 H Calcium Phosphorus Magnesium Alkaline Phosphatase Albumin 01/27/21 01/27/21 01/27/21 07:40 09:36 11:19 WBC RBC MCHC RDW [place] % (Auto) [place] # (Auto) Seg Neuts % (Manual) Lymphocytes % (Manual) Seg Neutrophils # Seg Neutrophils # Man Lymphocytes # (Manual) Monocytes # (Manual) D-Dimer VBG pH Sodium Potassium Chloride Carbon Dioxide BUN Creatinine Glucose POC Glucose 159 H 160 H 192 H Calcium Phosphorus Magnesium Alkaline Phosphatase Albumin 01/27/21 01/27/21 01/28/21 16:41 22:21 05:07 WBC 11.9 H RBC 3.62 L MCHC 35 H RDW 12.4 L [place] % (Auto) 12.3 H [place] # (Auto) 1.5 H Seg Neuts % (Manual) Lymphocytes % (Manual) Seg Neutrophils # 8.3 H Seg Neutrophils # Man Lymphocytes # (Manual) Monocytes # (Manual) D-Dimer VBG pH Sodium Potassium Chloride Carbon Dioxide BUN Creatinine Glucose POC Glucose 295 H 296 H Calcium Phosphorus Magnesium Alkaline Phosphatase Albumin 01/28/21 01/28/21 01/28/21 05:07 07:31 11:57 WBC RBC MCHC RDW [place] % (Auto) [place] # (Auto) Seg Neuts % (Manual) Lymphocytes % (Manual) Seg Neutrophils # Seg Neutrophils # Man Lymphocytes # (Manual) Monocytes # (Manual) D-Dimer VBG pH Sodium Potassium 3.1 L Chloride 97.6 L Carbon Dioxide BUN 3 L Creatinine 0.4 L Glucose 152 H POC Glucose 124 H 167 H Calcium 8.1 L Phosphorus Magnesium Alkaline Phosphatase Albumin 01/28/21 01/28/21 01/29/21 16:12 21:22 04:37 WBC RBC MCHC RDW [place] % (Auto) [place] # (Auto) Seg Neuts % (Manual) Lymphocytes % (Manual) Seg Neutrophils # Seg Neutrophils # Man Lymphocytes # (Manual) Monocytes # (Manual) D-Dimer VBG pH Sodium Potassium 3.5 L Chloride Carbon Dioxide BUN 2 L Creatinine 0.4 L Glucose 165 H POC Glucose 201 H 323 H Calcium 8.2 L Phosphorus Magnesium Alkaline Phosphatase Albumin 01/29/21 01/29/21 07:33 11:17 WBC RBC MCHC RDW [place] % (Auto) [place] # (Auto) Seg Neuts % (Manual) Lymphocytes % (Manual) Seg Neutrophils # Seg Neutrophils # Man Lymphocytes # (Manual) Monocytes # (Manual) D-Dimer VBG pH Sodium Potassium Chloride Carbon Dioxide BUN Creatinine Glucose POC Glucose 114 H 147 H Calcium Phosphorus Magnesium Alkaline Phosphatase Albumin Allied health notes reviewed: nursing
--- NOTE | 2021-01-29 13:29 | Progress Note ---
Assessment and Plan Assessment and plan: PROCEDURE: EXCISIONAL DEBRIDEMENT AND DRAINAGE OF RIGHT BUTTOCK WOUND 30 YO Female with DM, Obesity presents to ED for evaluation. Pt reports " my blood sugar is high, and my butt is sore". Patient states that she has experienced redness, swelling, tenderness in her right buttock over the last 3 days with persistently worsening symptoms over the same timeframe. Patient also acknowledges high blood glucose levels. Patient transported to [facility] via private vehicle for further care and evaluation of the aforementioned symptoms. The patient was seen and evaluated in the emergency department. All lab and imaging studies reviewed. The patient was found to have diabetic ketoacidosis complicated by metabolic acidosis, right buttock cellulitis complicated by sepsis. Patient admitted to ICU and initiated on DKA as well as sepsis protocols respectively. Patient treated with IV fluid resuscitation therapy as well. Patient denies fever, chills, chest pain, palpitation, productive cough, recent ill contacts, or known exposure to COVID-19. No prior admission for review. No medication listed at time of admission for reconciliation. Critical care consult placed in ED. 01/23: Patient seen and examined, no fever, no new complaints, wound dressing in place,. Anion Gap closed. She states she uses 70 lantus at night along with sliding scale with meals, Will transition to sq insulin and start lantus at 50. Will re-evaluate wound, Awaiting CT pelvis ordered yesterday urgently- I Understand will be done today. this will help evaluate for abscess that may require I/D Wound care consult Continue abx. Hypokalemiareplace Anticipate discharge in a.m. if remains stable and does not require any debridement 01/24: We will continue to monitor ID input noted. Continue antibiotics CT scan reviewed no drainable fluid noted but inflammation noted. Patient reported that the site bled through the night. Dressing being done at this time. Mild pseudohyponatremia noted will monitor closely while addressing blood sugar is still elevated. Anticipate discharge in next 24 hours this has been discussed with the patient and she verbalized understanding. We will discontinue IV fluid as patient is tolerating food. She also has some pain will adjust her pain medication for better control. 01/25: Continue supportive care, obtain Surgery evaluation as ID believes that this patient may eventually need drainage if organized. Will increase insulin coverage. Replace K. Sodium improving. 01/26: Noted increased Tachycardia, no respiratory distress but states that she is anxious. Will evaluate and rule out Pulmonary embolisim as patient has elevated D.dimer. Patient is for OR today for debridement of narcotizing cellulitis and follow cultures. We will also continue adjusting insulin for better blood sugar control. 01/27 Patient with sepsis due to right buttock wound with abscess. She had excisional debridement and drainage of right buttock wound and abscess done t [place] by Dr. Carlos. Patient has hypokalemia, given Potassium 01/28 Patient with sepsis due to right buttock wound with abscess. She had excisional debridement and drainage of right buttock wound and abscess done by Dr. Carlos yesterday 01/27. She has been seen by wound care Nurse and wound vac recommended. For hypokalemia, will replace po, and also check magnesium levels. Id following. Awaiting final culture report to determine Antibiotic 01/29 01/28 Patient with sepsis due to right buttock wound with abscess. She had excisional debridement and drainage of right buttock wound and abscess done by Dr. Carlos on 01/27. She has been seen by wound care Nurse and wound vac recommended, obtained, present in room. For hypokalemia of 3.5, will replace po Wound cultures grew Beta hemolytic strep Group B. ID to determine ID for discharge. (1) Sepsis Current Visit: Yes Status: Acute Plan to address problem: Sepsis protocol: CBC, CMP, IV antibiotic therapy, IV fluid resuscitation therapy, serial lactic acid level, blood culture, maintain mean arterial pressure greater than or equal to 65. (2) DKA (diabetic ketoacidoses) Current Visit: Yes Status: Acute Qualifiers: Diabetes mellitus type: type 1 Plan to address problem: She was treated with DKA protocol (3) Metabolic acidosis Current Visit: Yes Status: Acute Plan to address problem: Resolved (4) Obesity (BMI 30.0-34.9) Current Visit: Yes Status: Acute Plan to address problem: Balanced diet, increase physical activity at discharge (5) Cellulitis of right buttock Current Visit: Yes Status: Acute Plan to address problem: CBC, BMP, IV antibiotic therapy, supportive care. CT scan pelvis to evaluate for necrotizing soft tissue infection (6) pseudohyponatremia (7) Hypokalemia (8) elevated D-dimer (9) DVT prophylaxis Current Visit: Yes Status: Acute Plan to address problem: SCD to bilateral lower extremities while in bed History Interval history: Less pain right buttock s/p excisional debridement and drainage right buttock 6/3 No more fever past 24 hrs Tmax 99.0 Hospitalist Physical - Physical exam Narrative exam: - Physical exam Narrative exam: General appearance: Present: No distress, obese - EENT Eyes: Present: PERRL ENT: hearing intact, clear oral mucosa - Neck Neck: Present: supple, normal ROM - Respiratory Respiratory effort: normal Respiratory: bilateral: CTA - Cardiovascular Heart Sounds: Present: S1 & S2.tachycardia Absent: rub, click - Extremities Extremities: pulses symmetrical, No edema - Abdominal General gastrointestinal: Present: soft, non-tender, non-distended, normal bowel sounds Female genitourinary: Present: normal - Integumentary Integumentary: Present: Dressing over right buttock - Musculoskeletal Musculoskeletal: gait normal, strength equal bilaterally - Psychiatric Psychiatric: appropriate mood/affect, intact judgment & insight - Neurologic Neurologic: CNII-XII intact, moves all extremities - Constitutional Vitals: Temp Pulse Resp BP Pulse Ox 99.0 F 90 20 154/90 93 01/29/21 11:15 01/29/21 11:15 01/29/21 11:15 01/29/21 11:15 01/29/21 11:15 General appearance: Present: obese Results - Labs CBC & Chem 7: 01/28/21 05:07 01/29/21 04:37 Labs: Laboratory Last Values WBC 11.9 K/mm3 (4.5-11.0) H 01/28/21 05:07 RBC 3.62 M/mm3 (3.65-5.03) L 01/28/21 05:07 Hgb 11.4 gm/dl (10.1-14.3) 01/28/21 05:07 Hct 32.6 % (30.3-42.9) 01/28/21 05:07 MCV 90 fl (79-97) 01/28/21 05:07 MCH 31 pg (28-32) 01/28/21 05:07 MCHC 35 % (30-34) H 01/28/21 05:07 RDW 12.4 % (13.2-15.2) L 01/28/21 05:07 Plt Count 310 K/mm3 (140-440) 01/28/21 05:07 Lymph % (Auto) 16.9 % (13.4-35.0) 01/28/21 05:07 [place] % (Auto) 12.3 % (0.0-7.3) H 01/28/21 05:07 Eos % (Auto) 1.3 % (0.0-4.3) 01/28/21 05:07 Baso % (Auto) 0.3 % (0.0-1.8) 01/28/21 05:07 Lymph # (Auto) 2.0 K/mm3 (1.2-5.4) 01/28/21 05:07 [place] # (Auto) 1.5 K/mm3 (0.0-0.8) H 01/28/21 05:07 Eos # (Auto) 0.2 K/mm3 (0.0-0.4) 01/28/21 05:07 Baso # (Auto) 0.0 K/mm3 (0.0-0.1) 01/28/21 05:07 Add Manual Diff Complete 01/24/21 11:30 Total Counted 100 01/24/21 11:30 Seg Neutrophils % 69.2 % (40.0-70.0) 01/28/21 05:07 Seg Neuts % (Manual) 88.5 % (40.0-70.0) H 01/23/21 04:17 Band Neutrophils % 5.0 % 01/23/21 04:17 Lymphocytes % (Manual) 6.0 % (13.4-35.0) L 01/24/21 11:30 Monocytes % (Manual) 1.0 % (0.0-7.3) 01/24/21 11:30 Eosinophils % (Manual) 1.0 % (0.0-4.3) 01/24/21 11:30 Nucleated RBC % Not Reportable 01/24/21 11:30 Seg Neutrophils # 8.3 K/mm3 (1.8-7.7) H 01/28/21 05:07 Seg Neutrophils # Man 18.5 K/mm3 (1.8-7.7) H 01/24/21 11:30 Band Neutrophils # 0.0 K/mm3 01/24/21 11:30 Lymphocytes # (Manual) 1.2 K/mm3 (1.2-5.4) 01/24/21 11:30 Abs React Lymphs (Man) 0.0 K/mm3 01/24/21 11:30 Monocytes # (Manual) 0.2 K/mm3 (0.0-0.8) 01/24/21 11:30 Eosinophils # (Manual) 0.2 K/mm3 (0.0-0.4) 01/24/21 11:30 Basophils # (Manual) 0.0 K/mm3 (0.0-0.1) 01/24/21 11:30 Metamyelocytes # 0.0 K/mm3 01/24/21 11:30 Myelocytes # 0.0 K/mm3 01/24/21 11:30 Promyelocytes # 0.0 K/mm3 01/24/21 11:30 Blast Cells # 0.0 K/mm3 01/24/21 11:30 WBC Morphology Not Reportable 01/24/21 11:30 Hypersegmented Neuts Not Reportable 01/24/21 11:30 Hyposegmented Neuts Not Reportable 01/24/21 11:30 Hypogranular Neuts Not Reportable 01/24/21 11:30 Smudge Cells Not Reportable 01/24/21 11:30 Toxic Granulation Not Reportable 01/24/21 11:30 Toxic Vacuolation Not Reportable 01/24/21 11:30 Dohle Bodies Not Reportable 01/24/21 11:30 Pelger-Huet Anomaly Not Reportable 01/24/21 11:30 Ozzy Rods Not Reportable 01/24/21 11:30 Platelet Estimate Consistent w auto 01/24/21 11:30 Clumped Platelets Not Reportable 01/24/21 11:30 Plt Clumps, EDTA Not Reportable 01/24/21 11:30 Large Platelets Not Reportable 01/24/21 11:30 Giant Platelets Not Reportable 01/24/21 11:30 Platelet Satelliting Not Reportable 01/24/21 11:30 Plt Morphology Comment Not Reportable 01/24/21 11:30 RBC Morphology Normal 01/24/21 11:30 Dimorphic RBCs Not Reportable 01/24/21 11:30 Polychromasia Not Reportable 01/24/21 11:30 Hypochromasia Not Reportable 01/24/21 11:30 Poikilocytosis Not Reportable 01/24/21 11:30 Anisocytosis Not Reportable 01/24/21 11:30 Microcytosis Not Reportable 01/24/21 11:30 Macrocytosis Not Reportable 01/24/21 11:30 Spherocytes Not Reportable 01/24/21 11:30 Pappenheimer Bodies Not Reportable 01/24/21 11:30 Sickle Cells Not Reportable 01/24/21 11:30 Target Cells Not Reportable 01/24/21 11:30 Tear Drop Cells Not Reportable 01/24/21 11:30 Ovalocytes Not Reportable 01/24/21 11:30 Helmet Cells Not Reportable 01/24/21 11:30 Santacruz-Chrisman Bodies Not Reportable 01/24/21 11:30 Tatums Rings Not Reportable 01/24/21 11:30 [place] Cells Not Reportable 01/24/21 11:30 Bite Cells Not Reportable 01/24/21 11:30 Crenated Cell Not Reportable 01/24/21 11:30 Elliptocytes Not Reportable 01/24/21 11:30 Acanthocytes (Spur) Not Reportable 01/24/21 11:30 Rouleaux Not Reportable 01/24/21 11:30 Hemoglobin C Crystals Not Reportable 01/24/21 11:30 Schistocytes Not Reportable 01/24/21 11:30 Malaria parasites Not Reportable 01/24/21 11:30 Kal Bodies Not Reportable 01/24/21 11:30 Hem Pathologist Commnt No 01/24/21 11:30 D-Dimer 297.08 ng/mlDDU (0-234) H 01/26/21 12:20 VBG pH 7.303 (7.320-7.420) L 01/22/21 04:39 Sodium 138 mmol/L (137-145) 01/29/21 04:37 Potassium 3.5 mmol/L (3.6-5.0) L 01/29/21 04:37 Chloride 99.5 mmol/L (98-107) 01/29/21 04:37 Carbon Dioxide 29 mmol/L (22-30) 01/29/21 04:37 Anion Gap 13 mmol/L 01/29/21 04:37 BUN 2 mg/dL (7-17) L 01/29/21 04:37 Creatinine 0.4 mg/dL (0.6-1.2) L 01/29/21 04:37 Estimated GFR > 60 ml/min 01/29/21 04:37 BUN/Creatinine Ratio 5 % 01/29/21 04:37 Glucose 165 mg/dL (65-100) H 01/29/21 04:37 POC Glucose 147 mg/dL (70-105) H 01/29/21 11:17 Lactic Acid 1.10 mmol/L (0.7-2.0) 01/22/21 22:26 Calcium 8.2 mg/dL (8.4-10.2) L 01/29/21 04:37 Phosphorus 1.30 mg/dL (2.5-4.5) L D 01/22/21 18:18 Magnesium 1.80 mg/dL (1.7-2.3) 01/28/21 13:41 Total Bilirubin 0.50 mg/dL (0.1-1.2) 01/22/21 04:39 AST 9 units/L (5-40) 01/22/21 04:39 ALT 8 units/L (7-56) 01/22/21 04:39 Alkaline Phosphatase 131 units/L (35-129) H 01/22/21 04:39 Total Protein 7.3 g/dL (6.3-8.2) 01/22/21 04:39 Albumin 3.5 g/dL (3.9-5) L 01/22/21 04:39 Albumin/Globulin Ratio 0.9 % 01/22/21 04:39 HCG, Qual Negative (Negative) 01/22/21 04:39 Urine Color Yellow (Yellow) 01/22/21 06:08 Urine Turbidity Clear (Clear) 01/22/21 06:08 Urine pH 6.0 (5.0-7.0) 01/22/21 06:08 Ur Specific [place] 1.024 (1.003-1.030) 01/22/21 06:08 Urine Protein 30 mg/dl mg/dL (Negative) 01/22/21 06:08 Urine Glucose (UA) >=500 mg/dL (Negative) 01/22/21 06:08 Urine Ketones 80 mg/dL (Negative) 01/22/21 06:08 Urine Blood Neg (Negative) 01/22/21 06:08 Urine Nitrite Neg (Negative) 01/22/21 06:08 Urine Bilirubin Neg (Negative) 01/22/21 06:08 Urine Urobilinogen 2.0 mg/dL (<2.0) 01/22/21 06:08 Ur Leukocyte Esterase Neg (Negative) 01/22/21 06:08 Urine WBC (Auto) 3.0 /HPF (0.0-6.0) 01/22/21 06:08 Urine RBC (Auto) 2.0 /HPF (0.0-6.0) 01/22/21 06:08 U Epithel Cells (Auto) 2.0 /HPF (0-13.0) 01/22/21 06:08 Urine Mucus Few /HPF 01/22/21 06:08 Vancomycin Trough 5.5 ug/mL (5.0-20.0) 01/26/21 23:11 Microbiology: Microbiology 01/27/21 Unknown Wound - Deep Surgical Biopsy Culture - Preliminary Beta Hemolytic Strep Group B 01/27/21 Unknown Wound - Deep Anaerobic Culture - Preliminary 01/27/21 Unknown Wound - Deep Surgical Culture - Final Beta Hemolytic Strep Group B Trammell/IV: Voiding Method Toilet Active Medications - Current Medications Current Medications: Generic Name Dose Route Start Last Admin Trade Name Freq PRN Reason Stop Dose Admin Acetaminophen 650 mg 01/22/21 16:28 01/25/21 04:16 Acetaminophen 325 Mg Tab PO 650 mg Q6H PRN Administration Pain, Mild (1-3) Albuterol 2.5 mg 01/22/21 13:04 Albuterol 2.5 Mg/3 Ml Nebu IH Q3HRT PRN Shortness Of Breath Amlodipine Besylate 10 mg 01/26/21 10:00 01/29/21 10:48 Amlodipine 10 Mg Tab PO 10 mg DAILY LESTER Administration Dextrose 50 ml 01/23/21 08:27 Dextrose 50% In Water (25gm) 50 Ml Syringe IV Q30MIN PRN Hypoglycemia Protocol Heparin Sodium (Porcine) 5,000 unit 01/26/21 14:00 01/29/21 13:00 Heparin 5,000 Unit/1 Ml Vial SUB-Q 5,000 unit Q8HR LESTER Administration Hydralazine HCl 10 mg 01/25/21 16:35 01/25/21 19:52 Hydralazine 20 Mg/1 Ml Inj IV 10 mg Q6HR PRN Administration Hypertension Hydromorphone HCl 0.5 mg 01/25/21 09:05 01/29/21 10:44 Hydromorphone 1 Mg/1 Ml Inj IV 0.5 mg Q4H PRN Administration Pain, Moderate (4-6) Vancomycin HCl 1,250 mg/ 275 mls @ 166.667 mls/hr 01/27/21 12:00 01/29/21 03:04 Sodium Chloride IV 166 mls/hr Q8H LESTER Administration Insulin Glargine 70 units 01/25/21 22:00 01/28/21 21:55 Insulin Glargine 100 Units/Ml SUB-Q 70 units QHS LESTER Administration Insulin Human Lispro 0 unit 01/23/21 11:30 01/29/21 12:45 Insulin Lispro 100 Unit/Ml SUB-Q Not Given A[facility]S [facility] Protocol Lisinopril 40 mg 01/26/21 10:00 01/29/21 10:47 Lisinopril 20 Mg Tab PO 40 mg QDAY LESTER Administration Potassium Chloride 40 meq 01/29/21 08:00 01/29/21 08:20 Potassium Chloride Er 20 Meq Tab PO 01/29/21 14:01 40 meq Q6H LESTER Administration Sodium Chloride 10 ml 01/22/21 22:00 01/29/21 10:48 Sodium Chloride 0.9% 10 Ml Flush Syringe IV 10 ml BID LESTER Administration Sodium Chloride 10 ml 01/22/21 13:04 01/28/21 03:09 Sodium Chloride 0.9% 10 Ml Flush Syringe IV 10 ml PRN PRN Administration LINE FLUSH Nutrition/Malnutrition Assess - Dietary Evaluation Nutrition/Malnutrition Findings: Nutrition Notes Start: 01/24/21 12:20 Freq: Status: Active Protocol: Document 01/28/21 12:26 (Rec: 01/28/21 12:30 [email or web address]) Nutrition Notes Initial or Follow up Reassessment Current Diagnosis Diabetes,Sepsis Other Pertinent Diagnosis DKA Current Diet Consistent CHO Labs/Tests K 3.1 Pertinent Medications K-Dur 40 mEq Height 5 ft 2 in Weight 84.5 kg [place] Body Weight (kg) 50.00 BMI 34.0 Weight Status Obese Subjective/Other Information FU for intakes. Pt reports better appetite. She is eating her protein sources even when not hungry. Percent of energy/protein needs met: 67%/56% Burn Absent Trauma Absent GI Symptoms None Current % PO Poor (25-49%) Minimum of two criteria No physical signs of malnutrition #2 Nutrition Diagnosis Increased nutrient needs ( specify in comment below) Diagnosis Progress(for reassessment Continues documentation) #1 Nutrition Diagnosis Inadequate oral intake As Evidenced by Signs and Symptoms pt meeting 67%/56% of calorie/ protein needs Diagnosis Progress(for reassessment Continues documentation) Is patient on ventilator? No Is Patient Ambulatory and/or Out of Bed No REE-([facility]-confined to bed) 1817.868 Kcal/Kg value to use for calculation 18 Approximate Energy Requirements Using 1521 kcal/Kg Calculation Used for Recommendations Kcal/kg Additional Notes Protein: (1.25-1.5 g/kg AdjBW: 64 kg) 81-96g Fluid: 1 ml/kcal Nutrition Intervention Change Diet Order: Continue Add Supplement/Snack (indicate name/kcal Glucerna TID /protein ) Yaya BID Provides kCal: 850 Provides Protein (gm) 35 Goal #1 Meet at least 75% of protein and energy needs via PO and ONS intakes Anticipated Discharge Needs: Consistent CHO Follow-Up By: 02/01/21 Additional Comments FU for intakes and ONS tolerance
--- NOTE | 2021-01-29 16:40 | Progress Note ---
Assessment and Plan Cultures: 01/22/2021 blood culture: no growth 01/27/2021 OR deep culture: GBS A/P: 30-year-old female with diabetes mellitus admitted to the hospital with pain in her right buttock and DKA: #Sepsis, secondary to right buttock cellulitis and abscess: s/p I&D on 01/26/2021 #Diabetes mellitus, uncontrolled, was admitted with diabetic ketoacidosis Recs: -Ceftriaxone discontinued, continue IV Vancomycin with trough monitoring -OK to discharge on p.o. Augmentin 875 mg twice daily for 5 days -maintain glycemic control -wound care Robert Hernandez MD [facility] O: [phone] F: [phone] Subjective Date of service: 01/29/21 Principal diagnosis: Sepsis; DKA; Hyponatremia; Obesity; Cellulitis of right buttock Interval history: Afebrile, white count improving now 11.9. Group B strep Objective - Exam Narrative Exam: Physical Exam: Constitutional: Alert, cooperative. No acute distress Head, Ears, Nose: Normocephalic, atraumatic. External ears, nose normal Eyes: Conjunctivae/corneas clear. No icterus. No ptosis. Neck: Supple, no meningeal signs Oral: dentition fair, no thrush Cardiovascular: S1, S2 normal. Respiratory: Good air entry, clear to auscultation bilaterally GI: Soft, non-tender; bowel sounds normal. No peritoneal signs. Musculoskeletal: Right buttock wound dressed Skin: No rash or abscess Hem/Lymphatic: No palpable cervical or supraclavicular nodes. No lymphangitis Psych: Mood ok. Affect normal Neurological: Awake, alert, oriented. No gross abnormality - Constitutional Vitals: Vital Signs Temp Pulse Resp BP Pulse Ox 98.3 F 93 H 20 134/72 94 01/29/21 15:36 01/29/21 15:36 01/29/21 15:36 01/29/21 15:36 01/29/21 15:36 Temperature -Last 24 Hours Temperature 98.3 F Temperature 99.0 F Temperature 98.2 F Temperature 98.6 F Temperature 98.5 F Temperature 98.0 F - Labs CBC & Chem 7: 01/28/21 05:07 01/29/21 04:37 Labs: Abnormal lab results 01/28/21 01/28/21 01/29/21 Range/Units 16:12 21:22 04:37 Potassium 3.5 L (3.6-5.0) mmol/L BUN 2 L (7-17) mg/dL Creatinine 0.4 L (0.6-1.2) mg/dL Glucose 165 H (65-100) mg/dL POC Glucose 201 H 323 H (70-105) mg/dL Calcium 8.2 L (8.4-10.2) mg/dL 01/29/21 01/29/21 Range/Units 07:33 11:17 Potassium (3.6-5.0) mmol/L BUN (7-17) mg/dL Creatinine (0.6-1.2) mg/dL Glucose (65-100) mg/dL POC Glucose 114 H 147 H (70-105) mg/dL Calcium (8.4-10.2) mg/dL
[2021-01-29] MEDS ORDERED: POTASSIUM CHLORIDE ER 20 MEQ TAB PO SCH (18:00)
[2021-01-29] MEDS: INSULIN GLARGINE 100 UNITS/ML SUB-Q SCH (21:05)
[2021-01-30] MEDS: VANCOMYCIN 1,250 MG in SODIUM CHLORIDE 0.9% 250ML 250 ML IV SCH (04:34)
[2021-01-30] MEDS: HEPARIN 5,000 UNIT/1 ML VIAL SUB-Q SCH ×3 (05:00→21:25)
[2021-01-30] MEDS: HYDROmorphone 1 MG/1 ML INJ IV PRN ×2 (05:00→15:42)
[2021-01-30 06:23] LABS: Hemoglobin 13.1 gm/dl (10.1-14.3); Mean Corpuscular HGB Conc 35 % (30-34); Mean Corpuscular Volume 91 fl (79-97); Red Blood Count 4.16 M/mm3 (3.65-5.03); Red Cell Distribution Width 12.5 % (13.2-15.2)
[2021-01-30 06:30] LABS: Platelet Count 339 K/mm3 (140-440)
[2021-01-30 06:39] LABS: BUN/Creatinine Ratio 20; Blood Urea Nitrogen 8 mg/dL (7-17); Calcium 9.2 mg/dL (8.4-10.2); Hemolysis Index 80
--- NOTE | 2021-01-30 07:46 | Discharge Summary ---
Providers - Providers Date of Admission: 01/22/21 15:20 Date of discharge: 01/31/21 Attending physician: VARUN PEDRAZA 01/22/21 16:27 Consult to Physician [CONS] Routine Comment: Consulting Provider: HOMERO WHITE Physician Instructions: Reason For Exam: DKA 01/23/21 09:53 Consult to Physician [CONS] Routine Comment: Consulting Provider: ASHA HENRIQUEZ Physician Instructions: Reason For Exam: sepsis 01/23/21 19:17 Consult to Wound/ET Nurse [CONS] Stat Reason For Exam: wound eval right buttock 01/25/21 11:19 Consult to Physician [CONS] Routine Comment: Consulting Provider: FELISHA CARLOS Physician Instructions: evaluate right buttock wound/necrotizing infection Reason For Exam: right buttock necrotizing infection Primary care physician: INTAKE CLERK Hospitalization Condition: Stable Hospital course: 30 YO Female with DM, Obesity presents to ED for evaluation. Pt reports " my blood sugar is high, and my butt is sore". Patient states that she has experienced redness, swelling, tenderness in her right buttock over the last 3 days with persistently worsening symptoms over the same timeframe. Patient also acknowledges high blood glucose levels. Patient transported to [facility] via private vehicle for further care and evaluation of the aforementioned symptoms. The patient was seen and evaluated in the emergency department. All lab and imaging studies reviewed. The patient was found to have diabetic ketoacidosis complicated by metabolic acidosis, right buttock cellulitis complicated by sepsis. Patient admitted to ICU and initiated on DKA as well as sepsis protocols respectively. Patient treated with IV fluid resuscitation therapy as well. Patient denies fever, chills, chest pain, palpitation, productive cough, recent ill contacts, or known exposure to COVID-19. 01/23: Patient seen and examined, no fever, no new complaints, wound dressing in place,. Anion Gap closed. She states she uses 70 lantus at night along with sliding scale with meals, Will transition to sq insulin and start lantus at 50. Will re-evaluate wound, Awaiting CT pelvis ordered yesterday urgently- I Understand will be done today. this will help evaluate for abscess that may require I/D Wound care consult Continue abx. 01/24: We will continue to monitor ID input noted. Continue antibiotics CT scan reviewed no drainable fluid noted but inflammation noted. Patient reported that the site bled through the night. Dressing being done at this time. Mild pseudohyponatremia noted will monitor closely while addressing blood sugar is still elevated. Anticipate discharge in next 24 hours this has been discussed with the patient and she verbalized understanding. We will discontinue IV fluid as patient is tolerating food. She also has some pain will adjust her pain medication for better control. 01/25: Continue supportive care, obtain Surgery evaluation as ID believes that this patient may eventually need drainage if organized. Will increase insulin coverage. Replace K. Sodium improving. 01/26: Noted increased Tachycardia, no respiratory distress but states that she is anxious. Will evaluate and rule out Pulmonary embolisim as patient has elevated D.dimer. Patient is for OR today for debridement of narcotizing cellulitis and follow cultures. We will also continue adjusting insulin for better blood sugar control. 01/27 Patient with sepsis due to right buttock wound with abscess. She had excisional debridement and drainage of right buttock wound and abscess done today by Dr. Carlos. Patient has hypokalemia, given Potassium 01/28 Patient with sepsis due to right buttock wound with abscess. She had excisional debridement and drainage of right buttock wound and abscess done by Dr. Carlos yesterday 01/27. She has been seen by wound care Nurse and wound vac recommended. For hypokalemia, will replace po, and also check magnesium levels. Id following. Awaiting final culture report to determine Antibiotic 01/29 Patient with sepsis due to right buttock wound with abscess. She had excisional debridement and drainage of right buttock wound and abscess done by Dr. Carlos on 01/27. She has been seen by wound care Nurse and wound vac recommended, obtained, present in room. For hypokalemia of 3.5, will replace po Wound cultures grew Beta hemolytic strep Group B and ID Physician to determine ID for discharge. 01/30 Patient with sepsis due to right buttock wound with abscess. She had excisional debridement and drainage of right buttock wound and abscess done by Dr. Carlos on 01/27. She has been seen by wound care Nurse and wound vac recommended, obtained, present in room. patient to discharge home tomorrow. 01/31 Patient with sepsis due to right buttock wound with abscess. She had excisional debridement and drainage of right buttock wound and abscess done by Dr. Carlos on 01/27. She has been seen by wound care Nurse and wound vac recommended, obtained, present in room. Her wound cultures grew Beta hemolytic strep Group B and ID Physician recommended Augmentin on discharge. She is being discharged home with home health on . (1) Sepsis Current Visit: Yes Status: Acute Plan to address problem: Sepsis protocol: CBC, CMP, IV antibiotic therapy, IV fluid resuscitation therapy, serial lactic acid level, blood culture, maintain mean arterial pressure greater than or equal to 65. (2) DKA (diabetic ketoacidoses) Current Visit: Yes Status: Acute Qualifiers: Diabetes mellitus type: type 1 Plan to address problem: She was treated with DKA protocol (3) Metabolic acidosis Current Visit: Yes Status: Acute Plan to address problem: Resolved (4) Obesity (BMI 30.0-34.9) Current Visit: Yes Status: Acute Plan to address problem: Balanced diet, increase physical activity at discharge (5) Abscess and Cellulitis of right buttock Current Visit: Yes Status: Acute Plan to address problem: CBC, BMP, IV antibiotic therapy, supportive care. CT scan pelvis to evaluate for necrotizing soft tissue infection (6) pseudohyponatremia (7) Hypokalemia (8) elevated D-dimer (9) DVT prophylaxis Current Visit: Yes Status: Acute Plan to address problem: SCD to bilateral lower extremities while in bed Disposition: DC/TX-06 HOME UNDER HOME [facility] Final Discharge Diagnosis (Prints w/discharge instructions): 1.Sepsis. 2.Right buttock abscess and cellulitis. 3.Diabetic ketoacidosis - Discharge Diagnoses (1) Sepsis Status: Acute (2) DKA (diabetic ketoacidoses) Status: Acute Qualifiers: Diabetes mellitus type: type 1 (3) Abscess of right buttock Status: Acute (4) Cellulitis of right buttock Status: Acute (5) Obesity (BMI 30.0-34.9) Status: Acute Core Measure Documentation - Palliative Care Palliative Care/ Comfort Measures: Not Applicable - Core Measures Any of the following diagnoses?: none Exam - Constitutional Vitals: Temp Pulse Resp BP Pulse Ox 98.3 F 94 H 20 150/85 97 01/30/21 07:35 01/30/21 07:35 01/30/21 07:35 01/30/21 07:35 01/30/21 07:35 Plan Diet: low fat, low cholesterol, low salt, diabetic Durable Medical Equipment Needed Upon Discharge: other (Home health) Plan of Treatment: 1.Follow up with PCP in 1 week. 2.Follow up with Wound care clinic with Dr. Carlos in 1-2 days Follow up with: PRIMARY CARE, [Primary Care Provider] - 3-5 Days Prescriptions: Amoxicillin/Potassium Clav [Augmentin 875-125 Tablet] 1 each PO BID #10 tablet HYDROcodone/APAP 5-325 [[place] 5-325 mg TAB] 1 each PO Q6HR PRN #12 tablet PRN Reason: Pain
[2021-01-30] MEDS: INSULIN LISPRO 100 UNIT/ML SUB-Q SCH ×3 (08:21→17:34)
[2021-01-30] MEDS: amLODIPine 10 MG TAB PO SCH (09:30)
[2021-01-30] MEDS: LISINOPRIL 20 MG TAB PO SCH (09:30)
--- NOTE | 2021-01-30 13:35 | Progress Note ---
Assessment and Plan Assessment and plan: PROCEDURE: EXCISIONAL DEBRIDEMENT AND DRAINAGE OF RIGHT BUTTOCK WOUND 30 YO Female with DM, Obesity presents to ED for evaluation. Pt reports " my blood sugar is high, and my butt is sore". Patient states that she has experienced redness, swelling, tenderness in her right buttock over the last 3 days with persistently worsening symptoms over the same timeframe. Patient also acknowledges high blood glucose levels. Patient transported to [facility] via private vehicle for further care and evaluation of the aforementioned symptoms. The patient was seen and evaluated in the emergency department. All lab and imaging studies reviewed. The patient was found to have diabetic ketoacidosis complicated by metabolic acidosis, right buttock cellulitis complicated by sepsis. Patient admitted to ICU and initiated on DKA as well as sepsis protocols respectively. Patient treated with IV fluid resuscitation therapy as well. Patient denies fever, chills, chest pain, palpitation, productive cough, recent ill contacts, or known exposure to COVID-19. No prior admission for review. No medication listed at time of admission for reconciliation. Critical care consult placed in ED. 01/23: Patient seen and examined, no fever, no new complaints, wound dressing in place,. Anion Gap closed. She states she uses 70 lantus at night along with sliding scale with meals, Will transition to sq insulin and start lantus at 50. Will re-evaluate wound, Awaiting CT pelvis ordered yesterday urgently- I Understand will be done today. this will help evaluate for abscess that may require I/D Wound care consult Continue abx. Hypokalemiareplace Anticipate discharge in a.m. if remains stable and does not require any debridement 01/24: We will continue to monitor ID input noted. Continue antibiotics CT scan reviewed no drainable fluid noted but inflammation noted. Patient reported that the site bled through the night. Dressing being done at this time. Mild pseudohyponatremia noted will monitor closely while addressing blood sugar is still elevated. Anticipate discharge in next 24 hours this has been discussed with the patient and she verbalized understanding. We will discontinue IV fluid as patient is tolerating food. She also has some pain will adjust her pain medication for better control. 01/25: Continue supportive care, obtain Surgery evaluation as ID believes that this patient may eventually need drainage if organized. Will increase insulin coverage. Replace K. Sodium improving. 01/26: Noted increased Tachycardia, no respiratory distress but states that she is anxious. Will evaluate and rule out Pulmonary embolisim as patient has elevated D.dimer. Patient is for OR today for debridement of narcotizing cellulitis and follow cultures. We will also continue adjusting insulin for better blood sugar control. 01/27 Patient with sepsis due to right buttock wound with abscess. She had excisional debridement and drainage of right buttock wound and abscess done t [place] by Dr. Carlos. Patient has hypokalemia, given Potassium 01/28 Patient with sepsis due to right buttock wound with abscess. She had excisional debridement and drainage of right buttock wound and abscess done by Dr. Carlos yesterday 01/27. She has been seen by wound care Nurse and wound vac recommended. For hypokalemia, will replace po, and also check magnesium levels. Id following. Awaiting final culture report to determine Antibiotic 01/29 Patient with sepsis due to right buttock wound with abscess. She had excisional debridement and drainage of right buttock wound and abscess done by Dr. Carlos on 01/27. She has been seen by wound care Nurse and wound vac recommended, obtained, present in room. For hypokalemia of 3.5, will replace po Wound cultures grew Beta hemolytic strep Group B. ID to determine ID for discharge. 01/30 Patient with sepsis due to right buttock wound with abscess. She had excisional debridement and drainage of right buttock wound and abscess done by Dr. Carlos on 01/27. She has been seen by wound care Nurse and wound vac recommended, obtained, present in room. Patient has wound vac on. ID recommend to dc on Augmentin for 5 days. Discharge orders put in. Case management recommends can go tomorrow after all arrangements for home health made. (1) Sepsis Current Visit: Yes Status: Acute Plan to address problem: Sepsis protocol: CBC, CMP, IV antibiotic therapy, IV fluid resuscitation therapy, serial lactic acid level, blood culture, maintain mean arterial pressur e greater than or equal to 65. (2) DKA (diabetic ketoacidoses) Current Visit: Yes Status: Acute Qualifiers: Diabetes mellitus type: type 1 Plan to address problem: She was treated with DKA protocol (3) Metabolic acidosis Current Visit: Yes Status: Acute Plan to address problem: Resolved (4) Obesity (BMI 30.0-34.9) Current Visit: Yes Status: Acute Plan to address problem: Balanced diet, increase physical activity at discharge (5) Cellulitis of right buttock Current Visit: Yes Status: Acute Plan to address problem: CBC, BMP, IV antibiotic therapy, supportive care. CT scan pelvis to evaluate for necrotizing soft tissue infection (6) pseudohyponatremia (7) Hypokalemia (8) elevated D-dimer (9) DVT prophylaxis Current Visit: Yes Status: Acute Plan to address problem: SCD to bilateral lower extremities while in bed History Interval history: Less pain right buttock s/p excisional debridement and drainage right buttock 6/3 No more fever Hospitalist Physical - Physical exam Narrative exam: - Physical exam Narrative exam: General appearance: Present: No distress, obese - EENT Eyes: Present: PERRL ENT: hearing intact, clear oral mucosa - Neck Neck: Present: supple, normal ROM - Respiratory Respiratory effort: normal Respiratory: bilateral: CTA - Cardiovascular Heart Sounds: Present: S1 & S2.tachycardia Absent: rub, click - Extremities Extremities: pulses symmetrical, No edema - Abdominal General gastrointestinal: Present: soft, non-tender, non-distended, normal bowel sounds Female genitourinary: Present: normal - Integumentary Integumentary: Present: Dressing over right buttock. Wound vac to right buttock - Musculoskeletal Musculoskeletal: gait normal, strength equal bilaterally - Psychiatric Psychiatric: appropriate mood/affect, intact judgment & insight - Neurologic Neurologic: CNII-XII intact, moves all extremities - Constitutional Vitals: Temp Pulse Resp BP Pulse Ox 99.5 F 96 H 20 151/83 100 01/30/21 11:43 01/30/21 11:43 01/30/21 11:43 01/30/21 11:43 01/30/21 11:43 General appearance: Present: obese Results - Labs CBC & Chem 7: 01/30/21 05:37 01/30/21 05:37 Labs: Laboratory Last Values WBC 13.6 K/mm3 (4.5-11.0) H 01/30/21 05:37 RBC 4.16 M/mm3 (3.65-5.03) 01/30/21 05:37 Hgb 13.1 gm/dl (10.1-14.3) 01/30/21 05:37 Hct 38.0 % (30.3-42.9) 01/30/21 05:37 MCV 91 fl (79-97) 01/30/21 05:37 MCH 32 pg (28-32) 01/30/21 05:37 MCHC 35 % (30-34) H 01/30/21 05:37 RDW 12.5 % (13.2-15.2) L 01/30/21 05:37 Plt Count 339 K/mm3 (140-440) 01/30/21 05:37 Lymph % (Auto) 16.9 % (13.4-35.0) 01/28/21 05:07 [place] % (Auto) 12.3 % (0.0-7.3) H 01/28/21 05:07 Eos % (Auto) 1.3 % (0.0-4.3) 01/28/21 05:07 Baso % (Auto) 0.3 % (0.0-1.8) 01/28/21 05:07 Lymph # (Auto) 2.0 K/mm3 (1.2-5.4) 01/28/21 05:07 [place] # (Auto) 1.5 K/mm3 (0.0-0.8) H 01/28/21 05:07 Eos # (Auto) 0.2 K/mm3 (0.0-0.4) 01/28/21 05:07 Baso # (Auto) 0.0 K/mm3 (0.0-0.1) 01/28/21 05:07 Add Manual Diff Complete 01/24/21 11:30 Total Counted 100 01/24/21 11:30 Seg Neutrophils % 69.2 % (40.0-70.0) 01/28/21 05:07 Seg Neuts % (Manual) 88.5 % (40.0-70.0) H 01/23/21 04:17 Band Neutrophils % 5.0 % 01/23/21 04:17 Lymphocytes % (Manual) 6.0 % (13.4-35.0) L 01/24/21 11:30 Monocytes % (Manual) 1.0 % (0.0-7.3) 01/24/21 11:30 Eosinophils % (Manual) 1.0 % (0.0-4.3) 01/24/21 11:30 Nucleated RBC % Not Reportable 01/24/21 11:30 Seg Neutrophils # 8.3 K/mm3 (1.8-7.7) H 01/28/21 05:07 Seg Neutrophils # Man 18.5 K/mm3 (1.8-7.7) H 01/24/21 11:30 Band Neutrophils # 0.0 K/mm3 01/24/21 11:30 Lymphocytes # (Manual) 1.2 K/mm3 (1.2-5.4) 01/24/21 11:30 Abs React Lymphs (Man) 0.0 K/mm3 01/24/21 11:30 Monocytes # (Manual) 0.2 K/mm3 (0.0-0.8) 01/24/21 11:30 Eosinophils # (Manual) 0.2 K/mm3 (0.0-0.4) 01/24/21 11:30 Basophils # (Manual) 0.0 K/mm3 (0.0-0.1) 01/24/21 11:30 Metamyelocytes # 0.0 K/mm3 01/24/21 11:30 Myelocytes # 0.0 K/mm3 01/24/21 11:30 Promyelocytes # 0.0 K/mm3 01/24/21 11:30 Blast Cells # 0.0 K/mm3 01/24/21 11:30 WBC Morphology Not Reportable 01/24/21 11:30 Hypersegmented Neuts Not Reportable 01/24/21 11:30 Hyposegmented Neuts Not Reportable 01/24/21 11:30 Hypogranular Neuts Not Reportable 01/24/21 11:30 Smudge Cells Not Reportable 01/24/21 11:30 Toxic Granulation Not Reportable 01/24/21 11:30 Toxic Vacuolation Not Reportable 01/24/21 11:30 Dohle Bodies Not Reportable 01/24/21 11:30 Pelger-Huet Anomaly Not Reportable 01/24/21 11:30 Ozzy Rods Not Reportable 01/24/21 11:30 Platelet Estimate Consistent w auto 01/24/21 11:30 Clumped Platelets Not Reportable 01/24/21 11:30 Plt Clumps, EDTA Not Reportable 01/24/21 11:30 Large Platelets Not Reportable 01/24/21 11:30 Giant Platelets Not Reportable 01/24/21 11:30 Platelet Satelliting Not Reportable 01/24/21 11:30 Plt Morphology Comment Not Reportable 01/24/21 11:30 RBC Morphology Normal 01/24/21 11:30 Dimorphic RBCs Not Reportable 01/24/21 11:30 Polychromasia Not Reportable 01/24/21 11:30 Hypochromasia Not Reportable 01/24/21 11:30 Poikilocytosis Not Reportable 01/24/21 11:30 Anisocytosis Not Reportable 01/24/21 11:30 Microcytosis Not Reportable 01/24/21 11:30 Macrocytosis Not Reportable 01/24/21 11:30 Spherocytes Not Reportable 01/24/21 11:30 Pappenheimer Bodies Not Reportable 01/24/21 11:30 Sickle Cells Not Reportable 01/24/21 11:30 Target Cells Not Reportable 01/24/21 11:30 Tear Drop Cells Not Reportable 01/24/21 11:30 Ovalocytes Not Reportable 01/24/21 11:30 Helmet Cells Not Reportable 01/24/21 11:30 [place] Bodies Not Reportable 01/24/21 11:30 [place] Rings Not Reportable 01/24/21 11:30 Su Cells Not Reportable 01/24/21 11:30 Bite Cells Not Reportable 01/24/21 11:30 Crenated Cell Not Reportable 01/24/21 11:30 Elliptocytes Not Reportable 01/24/21 11:30 Acanthocytes (Spur) Not Reportable 01/24/21 11:30 Rouleaux Not Reportable 01/24/21 11:30 Hemoglobin C Crystals Not Reportable 01/24/21 11:30 Schistocytes Not Reportable 01/24/21 11:30 Malaria parasites Not Reportable 01/24/21 11:30 Kal Bodies Not Reportable 01/24/21 11:30 Hem Pathologist Commnt No 01/24/21 11:30 D-Dimer 297.08 ng/mlDDU (0-234) H 01/26/21 12:20 VBG pH 7.303 (7.320-7.420) L 01/22/21 04:39 Sodium 136 mmol/L (137-145) L 01/30/21 05:37 Potassium 4.3 mmol/L (3.6-5.0) D 01/30/21 05:37 Chloride 96.5 mmol/L (98-107) L 01/30/21 05:37 Carbon Dioxide 29 mmol/L (22-30) 01/30/21 05:37 Anion Gap 15 mmol/L 01/30/21 05:37 BUN 8 mg/dL (7-17) 01/30/21 05:37 Creatinine 0.4 mg/dL (0.6-1.2) L 01/30/21 05:37 Estimated GFR > 60 ml/min 01/30/21 05:37 BUN/Creatinine Ratio 20 % 01/30/21 05:37 Glucose 112 mg/dL (65-100) H 01/30/21 05:37 POC Glucose 243 mg/dL (70-105) H 01/30/21 11:36 Lactic Acid 1.10 mmol/L (0.7-2.0) 01/22/21 22:26 Calcium 9.2 mg/dL (8.4-10.2) 01/30/21 05:37 Phosphorus 1.30 mg/dL (2.5-4.5) L D 01/22/21 18:18 Magnesium 1.80 mg/dL (1.7-2.3) 01/28/21 13:41 Total Bilirubin 0.50 mg/dL (0.1-1.2) 01/22/21 04:39 AST 9 units/L (5-40) 01/22/21 04:39 ALT 8 units/L (7-56) 01/22/21 04:39 Alkaline Phosphatase 131 units/L (35-129) H 01/22/21 04:39 Total Protein 7.3 g/dL (6.3-8.2) 01/22/21 04:39 Albumin 3.5 g/dL (3.9-5) L 01/22/21 04:39 Albumin/Globulin Ratio 0.9 % 01/22/21 04:39 HCG, Qual Negative (Negative) 01/22/21 04:39 Urine Color Yellow (Yellow) 01/22/21 06:08 Urine Turbidity Clear (Clear) 01/22/21 06:08 Urine pH 6.0 (5.0-7.0) 01/22/21 06:08 Ur Specific [place] 1.024 (1.003-1.030) 01/22/21 06:08 Urine Protein 30 mg/dl mg/dL (Negative) 01/22/21 06:08 Urine Glucose (UA) >=500 mg/dL (Negative) 01/22/21 06:08 Urine Ketones 80 mg/dL (Negative) 01/22/21 06:08 Urine Blood Neg (Negative) 01/22/21 06:08 Urine Nitrite Neg (Negative) 01/22/21 06:08 Urine Bilirubin Neg (Negative) 01/22/21 06:08 Urine Urobilinogen 2.0 mg/dL (<2.0) 01/22/21 06:08 Ur Leukocyte Esterase Neg (Negative) 01/22/21 06:08 Urine WBC (Auto) 3.0 /HPF (0.0-6.0) 01/22/21 06:08 Urine RBC (Auto) 2.0 /HPF (0.0-6.0) 01/22/21 06:08 U Epithel Cells (Auto) 2.0 /HPF (0-13.0) 01/22/21 06:08 Urine Mucus Few /HPF 01/22/21 06:08 Vancomycin Trough 21.7 ug/mL (5.0-20.0) H 01/29/21 18:34 Microbiology: Microbiology 01/27/21 Unknown Wound - Deep Surgical Biopsy Culture - Preliminary Beta Hemolytic Strep Group B [place]/IV: Voiding Method Toilet Active Medications - Current Medications Current Medications: Generic Name Dose Route Start Last Admin Trade Name Freq PRN Reason Stop Dose Admin Acetaminophen 650 mg 01/22/21 16:28 01/25/21 04:16 Acetaminophen 325 Mg Tab PO 650 mg Q6H PRN Administration Pain, Mild (1-3) Albuterol 2.5 mg 01/22/21 13:04 Albuterol 2.5 Mg/3 Ml Nebu IH Q3HRT PRN Shortness Of Breath Amlodipine Besylate 10 mg 01/26/21 10:00 01/30/21 09:30 Amlodipine 10 Mg Tab PO 10 mg DAILY LESTER Administration Dextrose 50 ml 01/23/21 08:27 Dextrose 50% In Water (25gm) 50 Ml Syringe IV Q30MIN PRN Hypoglycemia Protocol Heparin Sodium (Porcine) 5,000 unit 01/26/21 14:00 01/30/21 05:00 Heparin 5,000 Unit/1 Ml Vial SUB-Q 5,000 unit Q8HR LESTER Administration Hydralazine HCl 10 mg 01/25/21 16:35 01/25/21 19:52 Hydralazine 20 Mg/1 Ml Inj IV 10 mg Q6HR PRN Administration Hypertension Hydromorphone HCl 0.5 mg 01/25/21 09:05 01/30/21 05:00 Hydromorphone 1 Mg/1 Ml Inj IV 0.5 mg Q4H PRN Administration Pain, Moderate (4-6) Vancomycin HCl 1 gm in 250 mls @ 166.667 mls/hr 01/30/21 16:00 Vancomycin/Ns 1 Gm/250 Ml IV Q8H LESTER Insulin Glargine 70 units 01/25/21 22:00 01/29/21 21:05 Insulin Glargine 100 Units/Ml SUB-Q 70 units QHS LESTER Administration Insulin Human Lispro 0 unit 01/23/21 11:30 01/30/21 12:26 Insulin Lispro 100 Unit/Ml SUB-Q 4 unit ACHS LESTER Administration Protocol Lisinopril 40 mg 01/26/21 10:00 01/30/21 09:30 Lisinopril 20 Mg Tab PO 40 mg QDAY LESTER Administration Sodium Chloride 10 ml 01/22/21 22:00 01/30/21 09:31 Sodium Chloride 0.9% 10 Ml Flush Syringe IV 10 ml BID LESTER Administration Sodium Chloride 10 ml 01/22/21 13:04 01/28/21 03:09 Sodium Chloride 0.9% 10 Ml Flush Syringe IV 10 ml PRN PRN Administration LINE FLUSH Nutrition/Malnutrition Assess - Dietary Evaluation Nutrition/Malnutrition Findings: Nutrition Notes Start: 01/24/21 12:2 0 Freq: Status: Active Protocol: Document 01/28/21 12:26 (Rec: 01/28/21 12:30 [id number]) Nutrition Notes Initial or Follow up Reassessment Current Diagnosis Diabetes,Sepsis Other Pertinent Diagnosis DKA Current Diet Consistent CHO Labs/Tests K 3.1 Pertinent Medications K-Dur 40 mEq Height 5 ft 2 in Weight 84.5 kg [place] Body Weight (kg) 50.00 BMI 34.0 Weight Status Obese Subjective/Other Information FU for intakes. Pt reports better appetite. She is eating her protein sources even when not hungry. Percent of energy/protein needs met: 67%/56% Burn Absent Trauma Absent GI Symptoms None Current % PO Poor (25-49%) Minimum of two criteria No physical signs of malnutrition #2 Nutrition Diagnosis Increased nutrient needs ( specify in comment below) Diagnosis Progress(for reassessment Continues documentation) #1 Nutrition Diagnosis Inadequate oral intake As Evidenced by Signs and Symptoms pt meeting 67%/56% of calorie/ protein needs Diagnosis Progress(for reassessment Continues documentation) Is patient on ventilator? No Is Patient Ambulatory and/or Out of Bed No REE-([place]-confined to bed) 1817.868 Kcal/Kg value to use for calculation 18 Approximate Energy Requirements Using 1521 kcal/Kg Calculation Used for Recommendations Kcal/kg Additional Notes Protein: (1.25-1.5 g/kg AdjBW: 64 kg) 81-96g Fluid: 1 ml/kcal Nutrition Intervention Change Diet Order: Continue Add Supplement/Snack (indicate name/kcal Glucerna TID /protein ) Yaya BID Provides kCal: 850 Provides Protein (gm) 35 Goal #1 Meet at least 75% of protein and energy needs via PO and ONS intakes Anticipated Discharge Needs: Consistent CHO Follow-Up By: 02/01/21 Additional Comments FU for intakes and ONS tolerance
--- NOTE | 2021-01-30 15:13 | Progress Note ---
Assessment and Plan Sepsis DKA Hyponatremia Obesity Cellulitis of right buttock - continue accuchecks with glycemic control per SSI for target blood glucose < 180 mg/dL - continue wound care per RN/WCT - complete AB's per ID recommendations - prn supplemental oxygen to keep O2 sats > 90% - prn bronchodilators () with pulm hygiene per RT - continue to avoid nephrotoxins, renally dose all medications - mobility protocols to prevent pressure ulcers - prn analgesia per pain score - PT/OT as tolerated - tobacco abstinence strongly counseled at the bedside - home oxygen evaluation at discharge - GI & VTE prophylaxis - Flu & pneumovax per protocol - continue other care per attending / other consultants ... re-evaluate in am & prn Subjective Date of service: 01/30/21 Principal diagnosis: Sepsis; DKA; Hyponatremia; Obesity; Cellulitis of right buttock Interval history: Patient is seen today for: Sepsis; DKA; Hyponatremia; Obesity; Cellulitis of right buttock Seen and examined at bedside; 24hour events reviewed; nursing and respiratory care staff consulted; no adverse overnight events reported to me; resting peacefully in bed; Objective Vital Signs - 12hr 01/30/21 01/30/21 01/30/21 04:00 07:35 09:30 Temperature 98.4 F 98.3 F Pulse Rate 91 H 94 H 94 H Respiratory 18 20 Rate Blood Pressure 150/85 150/85 Blood Pressure 155/58 [Right] O2 Sat by Pulse 100 97 Oximetry 01/30/21 11:43 Temperature 99.5 F Pulse Rate 96 H Respiratory 20 Rate Blood Pressure 151/83 Blood Pressure [Right] O2 Sat by Pulse 100 Oximetry Constitutional: no acute distress, alert Eyes: non-icteric ENT: oropharynx moist Neck: supple, no lymphadenopathy, no JVD Effort: normal Ascultation: Bilateral: clear, diminished breath sounds (Diminished breath sounds at the bases.) Percussion: Bilateral: not dull Cardiovascular: regular rate and rhythm Gastrointestinal: normoactive bowel sounds, soft, non-tender, non-distended (protuberant) Integumentary: cellulitis, other (Abscess on buttock.) Extremities: no cyanosis, no edema Neurologic: normal mental status, non-focal exam, pupils equal and round, CN II- XII normal Psychiatric: mood appropriate, affect normal CBC and BMP: 01/30/21 05:37 01/30/21 05:37 ABG, PT/INR, D-dimer: PT/INR, D-dimer D-Dimer 297.08 ng/mlDDU (0-234) H 01/26/21 12:20 Abnormal lab findings: Abnormal Labs 01/22/21 01/22/21 01/22/21 04:23 04:39 04:39 WBC 18.7 H RBC MCHC 35 H RDW 12.3 L [place] % (Auto) Valley # (Auto) Seg Neuts % (Manual) 89.0 H Lymphocytes % (Manual) 2.0 L Seg Neutrophils # Seg Neutrophils # Man 16.6 H Lymphocytes # (Manual) 0.4 L Monocytes # (Manual) D-Dimer VBG pH Sodium 129 L Potassium 3.4 L Chloride 94.0 L Carbon Dioxide 17 L BUN Creatinine 0.5 L Glucose 328 H POC Glucose 324 H Calcium Phosphorus Magnesium Alkaline Phosphatase 131 H Albumin 3.5 L Vancomycin Trough 01/22/21 01/22/21 01/22/21 04:39 10:19 11:57 WBC RBC MCHC RDW [place] % (Auto) Valley # (Auto) Seg Neuts % (Manual) Lymphocytes % (Manual) Seg Neutrophils # Seg Neutrophils # Man Lymphocytes # (Manual) Monocytes # (Manual) D-Dimer VBG pH 7.303 L Sodium 127 L Potassium 3.4 L Chloride 90.9 L Carbon Dioxide 13 L BUN Creatinine 0.5 L Glucose 306 H POC Glucose 283 H Calcium Phosphorus Magnesium Alkaline Phosphatase Albumin Vancomycin Trough 01/22/21 01/22/21 01/22/21 14:17 15:56 16:56 WBC RBC MCHC RDW [place] % (Auto) Valley # (Auto) Seg Neuts % (Manual) Lymphocytes % (Manual) Seg Neutrophils # Seg Neutrophils # Man Lymphocytes # (Manual) Monocytes # (Manual) D-Dimer VBG pH Sodium 132 L Potassium 3.3 L Chloride Carbon Dioxide 14 L BUN Creatinine 0.5 L Glucose 267 H POC Glucose 198 H 197 H Calcium Phosphorus Magnesium Alkaline Phosphatase Albumin Vancomycin Trough 01/22/21 01/22/21 01/22/21 18:18 18:18 19:06 WBC RBC MCHC RDW [place] % (Auto) Valley # (Auto) Seg Neuts % (Manual) Lymphocytes % (Manual) Seg Neutrophils # Seg Neutrophils # Man Lymphocytes # (Manual) Monocytes # (Manual) D-Dimer VBG pH Sodium 130 L Potassium 3.1 L Chloride Carbon Dioxide 15 L BUN Creatinine 0.4 L Glucose 241 H POC Glucose 226 H 203 H Calcium 8.3 L Phosphorus 1.30 L D Magnesium 1.60 L Alkaline Phosphatase Albumin Vancomycin Trough 01/22/21 01/22/21 01/22/21 20:08 21:14 22:02 WBC RBC MCHC RDW [place] % (Auto) Valley # (Auto) Seg Neuts % (Manual) Lymphocytes % (Manual) Seg Neutrophils # Seg Neutrophils # Man Lymphocytes # (Manual) Monocytes # (Manual) D-Dimer VBG pH Sodium Potassium Chloride Carbon Dioxide BUN Creatinine Glucose POC Glucose 233 H 202 H 181 H Calcium Phosphorus Magnesium Alkaline Phosphatase Albumin Vancomycin Trough 01/22/21 01/22/21 01/22/21 22:26 23:07 23:56 WBC RBC MCHC RDW [place] % (Auto) Valley # (Auto) Seg Neuts % (Manual) Lymphocytes % (Manual) Seg Neutrophils # Seg Neutrophils # Man Lymphocytes # (Manual) Monocytes # (Manual) D-Dimer VBG pH Sodium 130 L Potassium 2.6 L* Chloride Carbon Dioxide 20 L BUN Creatinine 0.4 L Glucose 185 H POC Glucose 160 H 159 H Calcium 8.1 L Phosphorus Magnesium Alkaline Phosphatase Albumin Vancomycin Trough 01/23/21 01/23/21 01/23/21 01:06 02:11 02:52 WBC RBC MCHC RDW [place] % (Auto) Valley # (Auto) Seg Neuts % (Manual) Lymphocytes % (Manual) Seg Neutrophils # Seg Neutrophils # Man Lymphocytes # (Manual) Monocytes # (Manual) D-Dimer VBG pH Sodium Potassium Chloride Carbon Dioxide BUN Creatinine Glucose POC Glucose 162 H 182 H 167 H Calcium Phosphorus Magnesium Alkaline Phosphatase Albumin Vancomycin Trough 01/23/21 01/23/21 01/23/21 04:01 04:17 04:17 WBC 20.7 H RBC MCHC 35 H RDW 12.1 L [place] % (Auto) Valley # (Auto) Seg Neuts % (Manual) 88.5 H Lymphocytes % (Manual) 1.0 L Seg Neutrophils # Seg Neutrophils # Man 18.3 H Lymphocytes # (Manual) 0.2 L Monocytes # (Manual) 1.0 H D-Dimer VBG pH Sodium 129 L Potassium 3.3 L D Chloride Carbon Dioxide 19 L BUN 6 L Creatinine 0.4 L Glucose 189 H POC Glucose 195 H Calcium Phosphorus Magnesium Alkaline Phosphatase Albumin Vancomycin Trough 01/23/21 01/23/21 01/23/21 05:04 06:08 06:47 WBC RBC MCHC RDW [place] % (Auto) [place] # (Auto) Seg Neuts % (Manual) Lymphocytes % (Manual) Seg Neutrophils # Seg Neutrophils # Man Lymphocytes # (Manual) Monocytes # (Manual) D-Dimer VBG pH Sodium Potassium Chloride Carbon Dioxide BUN Creatinine Glucose POC Glucose 158 H 154 H 140 H Calcium Phosphorus Magnesium Alkaline Phosphatase Albumin Vancomycin Trough 01/23/21 01/23/21 01/23/21 08:09 08:24 09:18 WBC RBC MCHC RDW [place] % (Auto) [place] # (Auto) Seg Neuts % (Manual) Lymphocytes % (Manual) Seg Neutrophils # Seg Neutrophils # Man Lymphocytes # (Manual) Monocytes # (Manual) D-Dimer VBG pH Sodium 124 L Potassium Chloride 97.6 L Carbon Dioxide 17 L BUN 6 L Creatinine 0.4 L Glucose 122 H POC Glucose 124 H 133 H Calcium 7.9 L Phosphorus Magnesium Alkaline Phosphatase Albumin Vancomycin Trough 01/23/21 01/23/21 01/23/21 11:24 17:08 18:43 WBC RBC MCHC RDW [place] % (Auto) Valley # (Auto) Seg Neuts % (Manual) Lymphocytes % (Manual) Seg Neutrophils # Seg Neutrophils # Man Lymphocytes # (Manual) Monocytes # (Manual) D-Dimer VBG pH Sodium 126 L Potassium Chloride 95.4 L Carbon Dioxide 18 L BUN 5 L Creatinine 0.4 L Glucose 212 H POC Glucose 240 H 220 H Calcium Phosphorus Magnesium Alkaline Phosphatase Albumin Vancomycin Trough 01/23/21 01/24/21 01/24/21 21:32 04:50 07:30 WBC RBC MCHC RDW [place] % (Auto) [place] # (Auto) Seg Neuts % (Manual) Lymphocytes % (Manual) Seg Neutrophils # Seg Neutrophils # Man Lymphocytes # (Manual) Monocytes # (Manual) D-Dimer VBG pH Sodium Potassium Chloride Carbon Dioxide BUN Creatinine Glucose POC Glucose 198 H 262 H 255 H Calcium Phosphorus Magnesium Alkaline Phosphatase Albumin Vancomycin Trough 01/24/21 01/24/21 01/24/21 11:30 11:33 16:06 WBC 20.1 H RBC MCHC 35 H RDW 12.6 L [place] % (Auto) [place] # (Auto) Seg Neuts % (Manual) Lymphocytes % (Manual) 6.0 L Seg Neutrophils # Seg Neutrophils # Man 18.5 H Lymphocytes # (Manual) Monocytes # (Manual) D-Dimer VBG pH Sodium Potassium Chloride Carbon Dioxide BUN Creatinine Glucose POC Glucose 293 H 230 H Calcium Phosphorus Magnesium Alkaline Phosphatase Albumin Vancomycin Trough 01/24/21 01/25/21 01/25/21 20:47 05:11 05:11 WBC 17.3 H RBC MCHC 36 H RDW 12.4 L [place] % (Auto) [place] # (Auto) Seg Neuts % (Manual) Lymphocytes % (Manual) Seg Neutrophils # Seg Neutrophils # Man Lymphocytes # (Manual) Monocytes # (Manual) D-Dimer VBG pH Sodium 130 L Potassium 3.2 L Chloride 93.7 L Carbon Dioxide BUN 4 L Creatinine 0.4 L Glucose 257 H POC Glucose 333 H Calcium 7.9 L Phosphorus Magnesium Alkaline Phosphatase Albumin Vancomycin Trough 01/25/21 01/25/21 01/25/21 07:31 11:05 16:03 WBC RBC MCHC RDW [place] % (Auto) [place] # (Auto) Seg Neuts % (Manual) Lymphocytes % (Manual) Seg Neutrophils # Seg Neutrophils # Man Lymphocytes # (Manual) Monocytes # (Manual) D-Dimer VBG pH Sodium Potassium Chloride Carbon Dioxide BUN Creatinine Glucose POC Glucose 264 H 209 H 149 H Calcium Phosphorus Magnesium Alkaline Phosphatase Albumin Vancomycin Trough 01/25/21 01/26/21 01/26/21 20:17 07:41 08:16 WBC RBC MCHC RDW [place] % (Auto) [place] # (Auto) Seg Neuts % (Manual) Lymphocytes % (Manual) Seg Neutrophils # Seg Neutrophils # Man Lymphocytes # (Manual) Monocytes # (Manual) D-Dimer 375.53 H VBG pH Sodium Potassium Chloride Carbon Dioxide BUN Creatinine Glucose POC Glucose 263 H 166 H Calcium Phosphorus Magnesium Alkaline Phosphatase Albumin Vancomycin Trough 01/26/21 01/26/21 01/26/21 11:41 12:20 16:07 WBC RBC MCHC RDW [place] % (Auto) [place] # (Auto) Seg Neuts % (Manual) Lymphocytes % (Manual) Seg Neutrophils # Seg Neutrophils # Man Lymphocytes # (Manual) Monocytes # (Manual) D-Dimer 297.08 H VBG pH Sodium Potassium Chloride Carbon Dioxide BUN Creatinine Glucose POC Glucose 121 H 167 H Calcium Phosphorus Magnesium Alkaline Phosphatase Albumin Vancomycin Trough 01/26/21 01/27/2121 20:25 02:01 02:01 WBC 14.9 H RBC MCHC 35 H RDW 12.6 L [place] % (Auto) [place] # (Auto) Seg Neuts % (Manual) Lymphocytes % (Manual) Seg Neutrophils # Seg Neutrophils # Man Lymphocytes # (Manual) Monocytes # (Manual) D-Dimer VBG pH Sodium 132 L Potassium 3.1 L Chloride 90.4 L Carbon Dioxide BUN 4 L Creatinine 0.5 L Glucose 284 H POC Glucose 273 H Calcium Phosphorus Magnesium Alkaline Phosphatase Albumin Vancomycin Trough 01/27/21 01/27/21 01/27/21 07:40 09:36 11:19 WBC RBC MCHC RDW [place] % (Auto) [place] # (Auto) Seg Neuts % (Manual) Lymphocytes % (Manual) Seg Neutrophils # Seg Neutrophils # Man Lymphocytes # (Manual) Monocytes # (Manual) D-Dimer VBG pH Sodium Potassium Chloride Carbon Dioxide BUN Creatinine Glucose POC Glucose 159 H 160 H 192 H Calcium Phosphorus Magnesium Alkaline Phosphatase Albumin Vancomycin Trough 01/27/21 01/27/21 01/28/21 16:41 22:21 05:07 WBC 11.9 H RBC 3.62 L MCHC 35 H RDW 12.4 L [place] % (Auto) 12.3 H [place] # (Auto) 1.5 H Seg Neuts % (Manual) Lymphocytes % (Manual) Seg Neutrophils # 8.3 H Seg Neutrophils # Man Lymphocytes # (Manual) Monocytes # (Manual) D-Dimer VBG pH Sodium Potassium Chloride Carbon Dioxide BUN Creatinine Glucose POC Glucose 295 H 296 H Calcium Phosphorus Magnesium Alkaline Phosphatase Albumin Vancomycin Trough 01/28/21 01/28/21 01/28/21 05:07 07:31 11:57 WBC RBC MCHC RDW [place] % (Auto) [place] # (Auto) Seg Neuts % (Manual) Lymphocytes % (Manual) Seg Neutrophils # Seg Neutrophils # Man Lymphocytes # (Manual) Monocytes # (Manual) D-Dimer VBG pH Sodium Potassium 3.1 L Chloride 97.6 L Carbon Dioxide BUN 3 L Creatinine 0.4 L Glucose 152 H POC Glucose 124 H 167 H Calcium 8.1 L Phosphorus Magnesium Alkaline Phosphatase Albumin Vancomycin Trough 01/28/21 01/28/21 01/29/21 16:12 21:22 04:37 WBC RBC MCHC RDW [place] % (Auto) [place] # (Auto) Seg Neuts % (Manual) Lymphocytes % (Manual) Seg Neutrophils # Seg Neutrophils # Man Lymphocytes # (Manual) Monocytes # (Manual) D-Dimer VBG pH Sodium Potassium 3.5 L Chloride Carbon Dioxide BUN 2 L Creatinine 0.4 L Glucose 165 H POC Glucose 201 H 323 H Calcium 8.2 L Phosphorus Magnesium Alkaline Phosphatase Albumin Vancomycin Trough 01/29/21 01/29/21 01/29/21 07:33 11:17 15:38 WBC RBC MCHC RDW [place] % (Auto) [place] # (Auto) Seg Neuts % (Manual) Lymphocytes % (Manual) Seg Neutrophils # Seg Neutrophils # Man Lymphocytes # (Manual) Monocytes # (Manual) D-Dimer VBG pH Sodium Potassium Chloride Carbon Dioxide BUN Creatinine Glucose POC Glucose 114 H 147 H 161 H Calcium Phosphorus Magnesium Alkaline Phosphatase Albumin Vancomycin Trough 01/29/21 01/29/21 01/30/21 18:34 20:17 05:37 WBC 13.6 H RBC MCHC 35 H RDW 12.5 L [place] % (Auto) [place] # (Auto) Seg Neuts % (Manual) Lymphocytes % (Manual) Seg Neutrophils # Seg Neutrophils # Man Lymphocytes # (Manual) Monocytes # (Manual) D-Dimer VBG pH Sodium Potassium Chloride Carbon Dioxide BUN Creatinine Glucose POC Glucose 259 H Calcium Phosphorus Magnesium Alkaline Phosphatase Albumin Vancomycin Trough 21.7 H 01/30/21 01/30/21 01/30/21 05:37 07:37 11:36 WBC RBC MCHC RDW [place] % (Auto) [place] # (Auto) Seg Neuts % (Manual) Lymphocytes % (Manual) Seg Neutrophils # Seg Neutrophils # Man Lymphocytes # (Manual) Monocytes # (Manual) D-Dimer VBG pH Sodium 136 L Potassium Chloride 96.5 L Carbon Dioxide BUN Creatinine 0.4 L Glucose 112 H POC Glucose 150 H 243 H Calcium Phosphorus Magnesium Alkaline Phosphatase Albumin Vancomycin Trough Allied health notes reviewed: nursing
[2021-01-30] MEDS: VANCOMYCIN/NS 1 GM/250 ML 1 GM/250 ML BAG IV SCH (16:43)
[2021-01-30] MEDS: ACETAMINOPHEN 325 MG TAB PO PRN (19:52)
[2021-01-30] MEDS: oxyCODONE /ACETAMINOPHEN 5-325MG TAB PO PRN (21:25)
[2021-01-31] MEDS: INSULIN LISPRO 100 UNIT/ML SUB-Q SCH ×2 (00:17→11:02)
[2021-01-31] MEDS: INSULIN GLARGINE 100 UNITS/ML SUB-Q SCH (00:17)
[2021-01-31] MEDS: VANCOMYCIN/NS 1 GM/250 ML 1 GM/250 ML BAG IV SCH (00:45)
[2021-01-31] MEDS: HEPARIN 5,000 UNIT/1 ML VIAL SUB-Q SCH ×2 (04:34→06:34)
[2021-01-31] MEDS: oxyCODONE /ACETAMINOPHEN 5-325MG TAB PO PRN (04:34)
[2021-01-31] MEDS ORDERED: AMOXICILLIN/K CLAV 875/125MG TAB PO SCH (10:00)
[2021-01-31] MEDS: LISINOPRIL 20 MG TAB PO SCH (11:06)
[2021-01-31] MEDS: amLODIPine 10 MG TAB PO SCH (11:07)
[2021-01-31 12:11] VITALS: BP 138/77
--- NOTE | 2021-01-31 13:15 | Progress Note ---
Assessment and Plan Cultures: 01/22/2021 blood culture: no growth 01/27/2021 OR deep culture: GBS A/P: 30-year-old female with diabetes mellitus admitted to the hospital with pain in her right buttock and DKA: #Sepsis, secondary to right buttock cellulitis and abscess: s/p I&D on 01/26/2021 #Diabetes mellitus, uncontrolled, was admitted with diabetic ketoacidosis Recs: -Ceftriaxone discontinued, continue IV Vancomycin with trough monitoring -OK to discharge on p.o. Augmentin 875 mg twice daily for 5 days -maintain glycemic control -wound care Robert Hernandez MD [facility] O: [phone] F: [phone] Subjective Date of service: 01/31/21 Principal diagnosis: Sepsis; DKA; Hyponatremia; Obesity; Cellulitis of right buttock Interval history: Afebrile, awaiting wound vac for discharge. Objective - Exam Narrative Exam: Physical Exam: Constitutional: Alert, cooperative. No acute distress Head, Ears, Nose: Normocephalic, atraumatic. External ears, nose normal Eyes: Conjunctivae/corneas clear. No icterus. No ptosis. Neck: Supple, no meningeal signs Oral: dentition fair, no thrush Cardiovascular: S1, S2 normal. Respiratory: Good air entry, clear to auscultation bilaterally GI: Soft, non-tender; bowel sounds normal. No peritoneal signs. Musculoskeletal: Right buttock wound dressed Skin: No rash or abscess Hem/Lymphatic: No palpable cervical or supraclavicular nodes. No lymphangitis Psych: Mood ok. Affect normal Neurological: Awake, alert, oriented. No gross abnormality - Constitutional Vitals: Vital Signs Temp Pulse Resp BP Pulse Ox 98.7 F 84 18 138/77 97 01/31/21 11:19 01/31/21 11:19 01/31/21 11:19 01/31/21 11:19 01/31/21 11:19 Temperature -Last 24 Hours Temperature 98.7 F Temperature 98.3 F Temperature 98.0 F Temperature 98.4 F Temperature 97.6 F Temperature 98.9 F - Labs CBC & Chem 7: 01/30/21 05:37 01/30/21 05:37 Labs: Abnormal lab results 0601/30/21 01/31/21 Range/Units 16:44 23:43 07:41 POC Glucose 229 H 337 H 161 H (70-105) mg/dL 01/31/21 Range/Units 11:21 POC Glucose 271 H (70-105) mg/dL
--- NOTE | 2021-01-31 13:54 | Progress Note ---
Assessment and Plan Patient alert, awake. Patient is on room air.O2 saturation 97%. No complaint of chest pain, shortness of breath or cough. Patient afebrile. Has leukocytosis. Blood pressure 156/81. Patient has abscess and cellulitis of right buttock. patient has history of diabetes and hypertension. No history of smoking, alcohol or drug abuse. and has two children. No known drug allergies. Chest xray done 01/22/21 reported no acute findings. Patient presently on antibiotics Vancomycin and ceftriaxone. Patient scheduled for surgical debridement tomorrow. - Patient Problems (1) Obesity (BMI 30.0-34.9) Current Visit: Yes Status: Acute Plan to address problem: Recommend to loose weight. Diet and exercise. (2) Sepsis Current Visit: Yes Status: Acute Plan to address problem: Patient is on vancomycin and ceftrioxone. (3) Cellulitis of right buttock Current Visit: Yes Status: Acute Plan to address problem: Patient is on vancomycin and vancomycin. (4) DKA (diabetic ketoacidoses) Current Visit: Yes Status: Acute Qualifiers: Diabetes mellitus type: type 1 Plan to address problem: Management as per primary care. (5) Hypertension Current Visit: Yes Status: Acute Plan to address problem: Management as per primary care. Subjective Date of service: 01/31/21 Principal diagnosis: Sepsis; DKA; Hyponatremia; Obesity; Cellulitis of right buttock Interval history: Patient alert, awake. Patient is on room air.O2 saturation 97%. No complaint of chest pain, shortness of breath or cough. Patient afebrile. Has leukocytosis. Blood pressure 156/81. Patient has abscess and cellulitis of right buttock. patient has history of diabetes and hypertension. No history of smoking, alcohol or drug abuse. and has two children. No known drug allergies. Chest xray done 01/22/21 reported no acute findings. Patient presently on antibiotics Vancomycin and ceftriaxone. Patient scheduled for surgical debridement tomorrow. Objective Vital Signs - 12hr 01/31/21 01/31/21 01/31/21 04:23 04:34 07:44 Temperature 98.0 F 98.3 F Pulse Rate 74 80 Respiratory 18 18 18 Rate Blood Pressure 149/90 147/91 O2 Sat by Pulse 100 96 Oximetry 01/31/21 01/31/21 01/31/21 11:06 11:07 11:19 Temperature 98.7 F Pulse Rate 91 H 91 H 84 Respiratory 18 Rate Blood Pressure 138/77 O2 Sat by Pulse 97 Oximetry Constitutional: no acute distress, alert Eyes: non-icteric ENT: oropharynx moist Neck: supple, no lymphadenopathy, no JVD Effort: normal Ascultation: Bilateral: diminished breath sounds (Diminished breath sounds at the bases.) Percussion: Bilateral: not dull Cardiovascular: regular rate and rhythm Gastrointestinal: normoactive bowel sounds, soft, non-tender, non-distended (protuberant) Integumentary: cellulitis, other (Abscess on buttock.) Extremities: no cyanosis, no edema Neurologic: normal mental status, non-focal exam, pupils equal and round, CN II- XII normal Psychiatric: mood appropriate, affect normal CBC and BMP: 01/30/21 05:37 01/30/21 05:37 ABG, PT/INR, D-dimer: PT/INR, D-dimer D-Dimer 297.08 ng/mlDDU (0-234) H 01/26/21 12:20 Abnormal lab findings: Abnormal Labs 01/22/21 01/22/21 01/22/21 04:23 04:39 04:39 WBC 18.7 H RBC MCHC 35 H RDW 12.3 L Grand % (Auto) Grand # (Auto) Seg Neuts % (Manual) 89.0 H Lymphocytes % (Manual) 2.0 L Seg Neutrophils # Seg Neutrophils # Man 16.6 H Lymphocytes # (Manual) 0.4 L Monocytes # (Manual) D-Dimer VBG pH Sodium 129 L Potassium 3.4 L Chloride 94.0 L Carbon Dioxide 17 L BUN Creatinine 0.5 L Glucose 328 H POC Glucose 324 H Calcium Phosphorus Magnesium Alkaline Phosphatase 131 H Albumin 3.5 L Vancomycin Trough 01/22/21 01/22/21 01/22/21 04:39 10:19 11:57 WBC RBC MCHC RDW Grand % (Auto) Grand # (Auto) Seg Neuts % (Manual) Lymphocytes % (Manual) Seg Neutrophils # Seg Neutrophils # Man Lymphocytes # (Manual) Monocytes # (Manual) D-Dimer VBG pH 7.303 L Sodium 127 L Potassium 3.4 L Chloride 90.9 L Carbon Dioxide 13 L BUN Creatinine 0.5 L Glucose 306 H POC Glucose 283 H Calcium Phosphorus Magnesium Alkaline Phosphatase Albumin Vancomycin Trough 01/22/21 01/22/21 01/22/21 14:17 15:56 16:56 WBC RBC MCHC RDW Grand % (Auto) Grand # (Auto) Seg Neuts % (Manual) Lymphocytes % (Manual) Seg Neutrophils # Seg Neutrophils # Man Lymphocytes # (Manual) Monocytes # (Manual) D-Dimer VBG pH Sodium 132 L Potassium 3.3 L Chloride Carbon Dioxide 14 L BUN Creatinine 0.5 L Glucose 267 H POC Glucose 198 H 197 H Calcium Phosphorus Magnesium Alkaline Phosphatase Albumin Vancomycin Trough 01/22/21 01/22/21 01/22/21 18:18 18:18 19:06 WBC RBC MCHC RDW Grand % (Auto) Grand # (Auto) Seg Neuts % (Manual) Lymphocytes % (Manual) Seg Neutrophils # Seg Neutrophils # Man Lymphocytes # (Manual) Monocytes # (Manual) D-Dimer VBG pH Sodium 130 L Potassium 3.1 L Chloride Carbon Dioxide 15 L BUN Creatinine 0.4 L Glucose 241 H POC Glucose 226 H 203 H Calcium 8.3 L Phosphorus 1.30 L D Magnesium 1.60 L Alkaline Phosphatase Albumin Vancomycin Trough 01/22/21 01/22/21 01/22/21 20:08 21:14 22:02 WBC RBC MCHC RDW Grand % (Auto) Grand # (Auto) Seg Neuts % (Manual) Lymphocytes % (Manual) Seg Neutrophils # Seg Neutrophils # Man Lymphocytes # (Manual) Monocytes # (Manual) D-Dimer VBG pH Sodium Potassium Chloride Carbon Dioxide BUN Creatinine Glucose POC Glucose 233 H 202 H 181 H Calcium Phosphorus Magnesium Alkaline Phosphatase Albumin Vancomycin Trough 01/22/21 01/22/21 01/22/21 22:26 23:07 23:56 WBC RBC MCHC RDW Grand % (Auto) Grand # (Auto) Seg Neuts % (Manual) Lymphocytes % (Manual) Seg Neutrophils # Seg Neutrophils # Man Lymphocytes # (Manual) Monocytes # (Manual) D-Dimer VBG pH Sodium 130 L Potassium 2.6 L* Chloride Carbon Dioxide 20 L BUN Creatinine 0.4 L Glucose 185 H POC Glucose 160 H 159 H Calcium 8.1 L Phosphorus Magnesium Alkaline Phosphatase Albumin Vancomycin Trough 01/23/21 01/23/21 01/23/21 01:06 02:11 02:52 WBC RBC MCHC RDW Grand % (Auto) Grand # (Auto) Seg Neuts % (Manual) Lymphocytes % (Manual) Seg Neutrophils # Seg Neutrophils # Man Lymphocytes # (Manual) Monocytes # (Manual) D-Dimer VBG pH Sodium Potassium Chloride Carbon Dioxide BUN Creatinine Glucose POC Glucose 162 H 182 H 167 H Calcium Phosphorus Magnesium Alkaline Phosphatase Albumin Vancomycin Trough 01/23/21 01/23/21 01/23/21 04:01 04:17 04:17 WBC 20.7 H RBC MCHC 35 H RDW 12.1 L Grand % (Auto) Grand # (Auto) Seg Neuts % (Manual) 88.5 H Lymphocytes % (Manual) 1.0 L Seg Neutrophils # Seg Neutrophils # Man 18.3 H Lymphocytes # (Manual) 0.2 L Monocytes # (Manual) 1.0 H D-Dimer VBG pH Sodium 129 L Potassium 3.3 L D Chloride Carbon Dioxide 19 L BUN 6 L Creatinine 0.4 L Glucose 189 H POC Glucose 195 H Calcium Phosphorus Magnesium Alkaline Phosphatase Albumin Vancomycin Trough 01/23/21 01/23/21 01/23/21 05:04 06:08 06:47 WBC RBC MCHC RDW Grand % (Auto) Grand # (Auto) Seg Neuts % (Manual) Lymphocytes % (Manual) Seg Neutrophils # Seg Neutrophils # Man Lymphocytes # (Manual) Monocytes # (Manual) D-Dimer VBG pH Sodium Potassium Chloride Carbon Dioxide BUN Creatinine Glucose POC Glucose 158 H 154 H 140 H Calcium Phosphorus Magnesium Alkaline Phosphatase Albumin Vancomycin Trough 01/23/21 01/23/21 01/23/21 08:09 08:24 09:18 WBC RBC MCHC RDW Grand % (Auto) Grand # (Auto) Seg Neuts % (Manual) Lymphocytes % (Manual) Seg Neutrophils # Seg Neutrophils # Man Lymphocytes # (Manual) Monocytes # (Manual) D-Dimer VBG pH Sodium 124 L Potassium Chloride 97.6 L Carbon Dioxide 17 L BUN 6 L Creatinine 0.4 L Glucose 122 H POC Glucose 124 H 133 H Calcium 7.9 L Phosphorus Magnesium Alkaline Phosphatase Albumin Vancomycin Trough 01/23/21 01/23/21 01/23/21 11:24 17:08 18:43 WBC RBC MCHC RDW Grand % (Auto) Grand # (Auto) Seg Neuts % (Manual) Lymphocytes % (Manual) Seg Neutrophils # Seg Neutrophils # Man Lymphocytes # (Manual) Monocytes # (Manual) D-Dimer VBG pH Sodium 126 L Potassium Chloride 95.4 L Carbon Dioxide 18 L BUN 5 L Creatinine 0.4 L Glucose 212 H POC Glucose 240 H 220 H Calcium Phosphorus Magnesium Alkaline Phosphatase Albumin Vancomycin Trough 01/23/21 01/24/21 01/24/21 21:32 04:50 07:30 WBC RBC MCHC RDW Grand % (Auto) Grand # (Auto) Seg Neuts % (Manual) Lymphocytes % (Manual) Seg Neutrophils # Seg Neutrophils # Man Lymphocytes # (Manual) Monocytes # (Manual) D-Dimer VBG pH Sodium Potassium Chloride Carbon Dioxide BUN Creatinine Glucose POC Glucose 198 H 262 H 255 H Calcium Phosphorus Magnesium Alkaline Phosphatase Albumin Vancomycin Trough 01/24/21 01/24/21 01/24/21 11:30 11:33 16:06 WBC 20.1 H RBC MCHC 35 H RDW 12.6 L Grand % (Auto) Grand # (Auto) Seg Neuts % (Manual) Lymphocytes % (Manual) 6.0 L Seg Neutrophils # Seg Neutrophils # Man 18.5 H Lymphocytes # (Manual) Monocytes # (Manual) D-Dimer VBG pH Sodium Potassium Chloride Carbon Dioxide BUN Creatinine Glucose POC Glucose 293 H 230 H Calcium Phosphorus Magnesium Alkaline Phosphatase Albumin Vancomycin Trough 01/24/21 01/25/21 01/25/21 20:47 05:11 05:11 WBC 17.3 H RBC MCHC 36 H RDW 12.4 L Grand % (Auto) Grand # (Auto) Seg Neuts % (Manual) Lymphocytes % (Manual) Seg Neutrophils # Seg Neutrophils # Man Lymphocytes # (Manual) Monocytes # (Manual) D-Dimer VBG pH Sodium 130 L Potassium 3.2 L Chloride 93.7 L Carbon Dioxide BUN 4 L Creatinine 0.4 L Glucose 257 H POC Glucose 333 H Calcium 7.9 L Phosphorus Magnesium Alkaline Phosphatase Albumin Vancomycin Trough 01/25/21 01/25/21 01/25/21 07:31 11:05 16:03 WBC RBC MCHC RDW Grand % (Auto) Grand # (Auto) Seg Neuts % (Manual) Lymphocytes % (Manual) Seg Neutrophils # Seg Neutrophils # Man Lymphocytes # (Manual) Monocytes # (Manual) D-Dimer VBG pH Sodium Potassium Chloride Carbon Dioxide BUN Creatinine Glucose POC Glucose 264 H 209 H 149 H Calcium Phosphorus Magnesium Alkaline Phosphatase Albumin Vancomycin Trough 01/25/21 01/26/21 01/26/21 20:17 07:41 08:16 WBC RBC MCHC RDW Grand % (Auto) Grand # (Auto) Seg Neuts % (Manual) Lymphocytes % (Manual) Seg Neutrophils # Seg Neutrophils # Man Lymphocytes # (Manual) Monocytes # (Manual) D-Dimer 375.53 H VBG pH Sodium Potassium Chloride Carbon Dioxide BUN Creatinine Glucose POC Glucose 263 H 166 H Calcium Phosphorus Magnesium Alkaline Phosphatase Albumin Vancomycin Trough 01/26/21 01/26/21 01/26/21 11:41 12:20 16:07 WBC RBC MCHC RDW Grand % (Auto) Grand # (Auto) Seg Neuts % (Manual) Lymphocytes % (Manual) Seg Neutrophils # Seg Neutrophils # Man Lymphocytes # (Manual) Monocytes # (Manual) D-Dimer 297.08 H VBG pH Sodium Potassium Chloride Carbon Dioxide BUN Creatinine Glucose POC Glucose 121 H 167 H Calcium Phosphorus Magnesium Alkaline Phosphatase Albumin Vancomycin Trough 01/26/21 01/27/21 01/27/21 20:25 02:01 02:01 WBC 14.9 H RBC MCHC 35 H RDW 12.6 L Grand % (Auto) Grand # (Auto) Seg Neuts % (Manual) Lymphocytes % (Manual) Seg Neutrophils # Seg Neutrophils # Man Lymphocytes # (Manual) Monocytes # (Manual) D-Dimer VBG pH Sodium 132 L Potassium 3.1 L Chloride 90.4 L Carbon Dioxide BUN 4 L Creatinine 0.5 L Glucose 284 H POC Glucose 273 H Calcium Phosphorus Magnesium Alkaline Phosphatase Albumin Vancomycin Trough 01/27/21 01/27/21 01/27/21 07:40 09:36 11:19 WBC RBC MCHC RDW Grand % (Auto) Grand # (Auto) Seg Neuts % (Manual) Lymphocytes % (Manual) Seg Neutrophils # Seg Neutrophils # Man Lymphocytes # (Manual) Monocytes # (Manual) D-Dimer VBG pH Sodium Potassium Chloride Carbon Dioxide BUN Creatinine Glucose POC Glucose 159 H 160 H 192 H Calcium Phosphorus Magnesium Alkaline Phosphatase Albumin Vancomycin Trough 01/27/21 01/27/21 01/28/21 16:41 22:21 05:07 WBC 11.9 H RBC 3.62 L MCHC 35 H RDW 12.4 L Grand % (Auto) 12.3 H Grand # (Auto) 1.5 H Seg Neuts % (Manual) Lymphocytes % (Manual) Seg Neutrophils # 8.3 H Seg Neutrophils # Man Lymphocytes # (Manual) Monocytes # (Manual) D-Dimer VBG pH Sodium Potassium Chloride Carbon Dioxide BUN Creatinine Glucose POC Glucose 295 H 296 H Calcium Phosphorus Magnesium Alkaline Phosphatase Albumin Vancomycin Trough 01/28/21 01/28/21 01/28/21 05:07 07:31 11:57 WBC RBC MCHC RDW Grand % (Auto) Grand # (Auto) Seg Neuts % (Manual) Lymphocytes % (Manual) Seg Neutrophils # Seg Neutrophils # Man Lymphocytes # (Manual) Monocytes # (Manual) D-Dimer VBG pH Sodium Potassium 3.1 L Chloride 97.6 L Carbon Dioxide BUN 3 L Creatinine 0.4 L Glucose 152 H POC Glucose 124 H 167 H Calcium 8.1 L Phosphorus Magnesium Alkaline Phosphatase Albumin Vancomycin Trough 01/28/21 01/28/21 01/29/21 16:12 21:22 04:37 WBC RBC MCHC RDW Grand % (Auto) Grand # (Auto) Seg Neuts % (Manual) Lymphocytes % (Manual) Seg Neutrophils # Seg Neutrophils # Man Lymphocytes # (Manual) Monocytes # (Manual) D-Dimer VBG pH Sodium Potassium 3.5 L Chloride Carbon Dioxide BUN 2 L Creatinine 0.4 L Glucose 165 H POC Glucose 201 H 323 H Calcium 8.2 L Phosphorus Magnesium Alkaline Phosphatase Albumin Vancomycin Trough 01/29/21 01/29/21 01/29/21 07:33 11:17 15:38 WBC RBC MCHC RDW Grand % (Auto) Grand # (Auto) Seg Neuts % (Manual) Lymphocytes % (Manual) Seg Neutrophils # Seg Neutrophils # Man Lymphocytes # (Manual) Monocytes # (Manual) D-Dimer VBG pH Sodium Potassium Chloride Carbon Dioxide BUN Creatinine Glucose POC Glucose 114 H 147 H 161 H Calcium Phosphorus Magnesium Alkaline Phosphatase Albumin Vancomycin Trough 01/29/21 01/29/21 01/30/21 18:34 20:17 05:37 WBC 13.6 H RBC MCHC 35 H RDW 12.5 L Grand % (Auto) Grand # (Auto) Seg Neuts % (Manual) Lymphocytes % (Manual) Seg Neutrophils # Seg Neutrophils # Man Lymphocytes # (Manual) Monocytes # (Manual) D-Dimer VBG pH Sodium Potassium Chloride Carbon Dioxide BUN Creatinine Glucose POC Glucose 259 H Calcium Phosphorus Magnesium Alkaline Phosphatase Albumin Vancomycin Trough 21.7 H 01/30/21 01/30/21 01/30/21 05:37 07:37 11:36 WBC RBC MCHC RDW Grand % (Auto) Grand # (Auto) Seg Neuts % (Manual) Lymphocytes % (Manual) Seg Neutrophils # Seg Neutrophils # Man Lymphocytes # (Manual) Monocytes # (Manual) D-Dimer VBG pH Sodium 136 L Potassium Chloride 96.5 L Carbon Dioxide BUN Creatinine 0.4 L Glucose 112 H POC Glucose 150 H 243 H Calcium Phosphorus Magnesium Alkaline Phosphatase Albumin Vancomycin Trough 01/30/21 01/30/21 01/31/21 16:44 23:43 07:41 WBC RBC MCHC RDW Grand % (Auto) Grand # (Auto) Seg Neuts % (Manual) Lymphocytes % (Manual) Seg Neutrophils # Seg Neutrophils # Man Lymphocytes # (Manual) Monocytes # (Manual) D-Dimer VBG pH Sodium Potassium Chloride Carbon Dioxide BUN Creatinine Glucose POC Glucose 229 H 337 H 161 H Calcium Phosphorus Magnesium Alkaline Phosphatase Albumin Vancomycin Trough 01/31/21 11:21 WBC RBC MCHC RDW Grand % (Auto) Grand # (Auto) Seg Neuts % (Manual) Lymphocytes % (Manual) Seg Neutrophils # Seg Neutrophils # Man Lymphocytes # (Manual) Monocytes # (Manual) D-Dimer VBG pH Sodium Potassium Chloride Carbon Dioxide BUN Creatinine Glucose POC Glucose 271 H Calcium Phosphorus Magnesium Alkaline Phosphatase Albumin Vancomycin Trough Allied health notes reviewed: nursing
--- NOTE | 2021-01-31 15:01 | Event Note ---
Date: 01/31/21 I have seen and examined patient today. She is stable to discharge home today.
== END 2021-01-31 15:15 | disposition home or self-care (01) | DRG 853 ==
LOC: ED 00:53 → CC1 15:10 → 4A 01-23 21:47
PROVIDERS: ADMIT Internal Medicine; ATTEND Internal Medicine
PROC: 0JB90ZZ Excision of Buttock Subcutaneous Tissue and Fascia, Open Approach (ICD-10-PCS; principal; 2021-01-27)
DX: A41.9 Sepsis, unspecified organism (principal); E10.10 Type 1 diabetes mellitus with ketoacidosis without coma; L03.317 Cellulitis of buttock; E87.1 Hypo-osmolality and hyponatremia; K21.9 Gastro-esophageal reflux disease without esophagitis; E66.9 Obesity, unspecified; E87.6 Hypokalemia; I10 Essential (primary) hypertension; Z68.30 Body mass index [BMI] 30.0-30.9, adult; Z83.3 Family history of diabetes mellitus; Z82.49 Family history of ischemic heart disease and other diseases of the circulatory system
CPT/HCPCS: 36415; 71045; 71275; 72193; 80048; 80053; 80202; 81001; 82140; 82805; 82962; 83735; 84100; 84703; 85007; 85025; 85027; 85379; 87040; 87075; 87116; 88304; 96365; 96366; 96375; G0378; J0330; J0360; J0696; J1170; J1644; J1815; J2270; J2405; J2704; J3010; J3370; J3475; J3480; J7030; J7040; J7050; Q9967

== ENCOUNTER 2021-02-02 13:24 | Outpatient (CLI) | payer OTHER ==
[2021-02-02] MEDS ORDERED: LIDOCAINE (4%) 40 MG/ML TOPICAL SOLN 50 ML BOTTLE TP ONE (15:05)
== END 2021-02-02 13:25 | disposition home or self-care (01) ==
LOC: WOUND 13:24
PROVIDERS: ATTEND Surgery
DX: T81.89XA Other complications of procedures, not elsewhere classified, initial encounter (principal); E11.628 Type 2 diabetes mellitus with other skin complications; S31.819A Unspecified open wound of right buttock, initial encounter; I10 Essential (primary) hypertension; Z90.49 Acquired absence of other specified parts of digestive tract; X58.XXXA Exposure to other specified factors, initial encounter; Y93.89 Activity, other specified; Y92.89 Other specified places as the place of occurrence of the external cause; Y99.8 Other external cause status; Y83.8 Other surgical procedures as the cause of abnormal reaction of the patient, or of later complication, without mention of misadventure at the time of the procedure; Y92.238 Other place in hospital as the place of occurrence of the external cause
CPT/HCPCS: 97605; G0463; 99214

== ENCOUNTER 2021-02-04 09:45 | Outpatient (CLI) | payer OTHER | END 2021-02-04 09:46 | disposition home or self-care (01) | LOC: WOUND 09:45 | CPT/HCPCS: 97605 ==

== ENCOUNTER 2021-02-09 11:40 | Outpatient (CLI) | payer OTHER ==
[2021-02-09] MEDS ORDERED: LIDOCAINE (4%) 40 MG/ML TOPICAL SOLN 50 ML BOTTLE TP ONE (13:55)
== END 2021-02-09 11:41 | disposition home or self-care (01) ==
LOC: WOUND 11:40
PROVIDERS: ATTEND Surgery
DX: T81.89XD Other complications of procedures, not elsewhere classified, subsequent encounter (principal); E11.628 Type 2 diabetes mellitus with other skin complications; S31.819D Unspecified open wound of right buttock, subsequent encounter; I10 Essential (primary) hypertension; Z90.49 Acquired absence of other specified parts of digestive tract; X58.XXXD Exposure to other specified factors, subsequent encounter; Y83.8 Other surgical procedures as the cause of abnormal reaction of the patient, or of later complication, without mention of misadventure at the time of the procedure
CPT/HCPCS: 97605

== ENCOUNTER 2021-02-11 09:31 | Outpatient (CLI) | payer OTHER | END 2021-02-11 09:32 | disposition home or self-care (01) | LOC: WOUND 09:31 | PROVIDERS: ATTEND Surgery | DX: T81.89XD Other complications of procedures, not elsewhere classified, subsequent encounter (principal); E11.628 Type 2 diabetes mellitus with other skin complications; S31.819D Unspecified open wound of right buttock, subsequent encounter; I10 Essential (primary) hypertension; Z90.49 Acquired absence of other specified parts of digestive tract; X58.XXXD Exposure to other specified factors, subsequent encounter; Y83.8 Other surgical procedures as the cause of abnormal reaction of the patient, or of later complication, without mention of misadventure at the time of the procedure | CPT/HCPCS: 97605 ==

== ENCOUNTER 2021-02-14 10:06 | Outpatient (CLI) | payer OTHER ==
[2021-02-14] MEDS ORDERED: LIDOCAINE (4%) 40 MG/ML TOPICAL SOLN 50 ML BOTTLE TP ONE (10:59)
== END 2021-02-14 10:07 | disposition home or self-care (01) ==
LOC: WOUND 10:06
PROVIDERS: ATTEND Surgery
DX: T81.89XD Other complications of procedures, not elsewhere classified, subsequent encounter (principal); E11.628 Type 2 diabetes mellitus with other skin complications; S31.819D Unspecified open wound of right buttock, subsequent encounter; I10 Essential (primary) hypertension; Z90.49 Acquired absence of other specified parts of digestive tract; X58.XXXD Exposure to other specified factors, subsequent encounter; Y83.8 Other surgical procedures as the cause of abnormal reaction of the patient, or of later complication, without mention of misadventure at the time of the procedure
CPT/HCPCS: 97605

== ENCOUNTER 2021-02-21 09:06 | Outpatient (CLI) | payer OTHER ==
[2021-02-21] MEDS ORDERED: LIDOCAINE (4%) 40 MG/ML TOPICAL SOLN 50 ML BOTTLE TP ONE (09:17)
[2021-02-21] MEDS ORDERED: SILVER NITRATE APPLICATOR 1 EA TP ONE (10:42)
== END 2021-02-21 09:07 | disposition home or self-care (01) ==
LOC: WOUND 09:06
PROVIDERS: ATTEND Surgery
DX: T81.89XD Other complications of procedures, not elsewhere classified, subsequent encounter (principal); E11.628 Type 2 diabetes mellitus with other skin complications; S31.819D Unspecified open wound of right buttock, subsequent encounter; I10 Essential (primary) hypertension; Z90.49 Acquired absence of other specified parts of digestive tract; X58.XXXD Exposure to other specified factors, subsequent encounter; Y83.8 Other surgical procedures as the cause of abnormal reaction of the patient, or of later complication, without mention of misadventure at the time of the procedure
CPT/HCPCS: 17250

== ENCOUNTER 2021-03-30 09:07 | Outpatient (CLI) | payer OTHER | END 2021-03-30 09:08 | disposition home or self-care (01) | LOC: WOUND 09:07 | PROVIDERS: ATTEND Surgery | DX: T81.89XD Other complications of procedures, not elsewhere classified, subsequent encounter (principal); E11.628 Type 2 diabetes mellitus with other skin complications; S31.819D Unspecified open wound of right buttock, subsequent encounter; I10 Essential (primary) hypertension; Z90.49 Acquired absence of other specified parts of digestive tract; X58.XXXD Exposure to other specified factors, subsequent encounter; Y83.8 Other surgical procedures as the cause of abnormal reaction of the patient, or of later complication, without mention of misadventure at the time of the procedure | CPT/HCPCS: 99212; G0463 ==